=== PATIENT | female | born 1980 | race Caucasian/White ===

== ENCOUNTER 2018-02-18 09:20 | Emergency (ER) | payer BC, OTHER ==
[~2018-02-18] VITALS: Ht 165.1 cm; Wt 64.6 kg
[2018-02-18 09:23] VITALS: TEMP 36.8; Ht 165.1 cm; Wt 64.6 kg
[2018-02-18] MEDS ORDERED: KETOROLAC TROMETHAMINE 60 MG/2 ML VIAL IM STA (09:49)
[2018-02-18 10:30] VITALS: BP 96/67; PULSE 70; O2SAT 99
--- NOTE | 2018-02-18 10:39 | DIAGNOSTIC IMAGING REPORT ---
HEAD CT NONCONTRAST CT DOSE: 788.63 mGycm HISTORY: headache TECHNIQUE: Multiaxial CT images of the head were performed without the use of intravenous contrast. Automated exposure control was utilized for this study. A dose lowering technique was utilized adhering to the principles of ALARA. Comparison: Brain MRI 04/30/2014. Findings: The paranasal sinuses and mastoid air cells are clear. The calvarium and skull base are intact. The ventricles and sulci are within normal limits. There is no mass, hematoma, midline shift, or acute infarct. Impression: No acute intracranial abnormality. Electronically signed by: Riley Schumacher M.D. 02/18/2018 10:14 AM Dictated Date/Time: 02/18/2018 10:11 AM
--- NOTE | 2018-02-18 10:53 | EMERGENCY ROOM VISIT NOTE ---
History Report prepared by Sofy: Nilo Ernandez Under the Supervision of: Dr. Isauro Duval M.D. First contact with patient: 09:42 Chief Complaint: HEADACHE Stated Complaint: HEADACHE 9 DAYS History of Present Illness The patient is a 37 year old female who presents to the Emergency Room with complaints of constant headache beginning nine days ago. The patient rates her current pain as a 3/10 in severity. She localizes the pain to her temples. She describes her pain as "sharp". The patient's pain is worsened with moving her head. She has a history of migraines (for the past five years), but states that her current headache feels much more "intense". She also complains of intermittent nausea, mild cough and occasional lightheadedness. The patient was seen at urgent care for her symptoms four days ago and received IM pain medication. She was discharged and told to return for continued pain. She saw her chiropractor yesterday as well which did not improve her pain. The patient denies any fevers, chest pain, or SOB. She denies chance of . She denies any recent trauma or injury. The patient notes that her migraines are normally resolved with Excedrin Migraine, but her current headache has been unaffected. Source of History: patient Onset: Nine days ago Position: head Symptom Intensity: 3/10 Quality: sharp Timing: constant Modifying Factors (Worsening): other (moving head) Associated Symptoms: + cough (mild), + nausea (intermittent), No fevers, No chest pain, No SOB Note: Positive: occasional lightheadedness. Review of Systems See HPI for pertinent positives & negatives. A total of 10 systems reviewed and were otherwise negative. Past Medical & Surgical Medical Problems: (1) No significant medical problems Surgical Problems: (1) History of wisdom tooth extraction Old medical records were reviewed. Nurse's notes were reviewed and I agree with. Family History No pertinent family history stated. Social History Smoking Status: Former Smoker Alcohol Use: none Marital Status: single Housing Status: lives with family Occupation Status: employed Current/Historical Medications No Active Prescriptions or Reported Meds Allergies Coded Allergies: No Known Allergies (Verified , 12/17/02) Physical Exam Vital Signs Date Time Temp Pulse Resp B/P (MAP) Pulse Ox O2 Delivery O2 Flow Rate FiO2 02/18/18 10:30 70 18 96/67 99 Room Air 02/18/18 09:23 36.8 83 18 116/81 97 Room Air Physical Exam General: Non-ill appearing young female in no acute distress. HEENT: Normal cephalic atraumatic. Pupils are equal round and reactive to light. Extraocular movements are intact. Oropharynx is pink with moist mucous membranes. No swelling of the mouth lips or tongue. Neck: Supple with a midline trachea. No meningeal signs or stiffness, no JVD or bruits. No Stridor. Chest: Clear to auscultation bilaterally. No wheezes or rhonchi. No increased work of breathing. Heart: regular rate and rhythm. Abdomen: Soft nontender, nondistended without rebound guarding or rigidity. Extremities: No cyanosis clubbing or edema. No calf tenderness or assymetry Spine/Back. Non tender to palpation. No CVA tenderness Skin: Good turgor without rashes. Neurologic exam: Cranial nerves two through 12 are intact. Motor and sensation are intact and symmetrical throughout. Medical Decision & Procedures ER Provider Diagnostic Interpretation: Radiology results as stated below per my review and radiologist interpretation: HEAD CT NONCONTRAST Findings: The paranasal sinuses and mastoid air cells are clear. The calvarium and skull base are intact. The ventricles and sulci are within normal limits. There is no mass, hematoma, midline shift, or acute infarct. Impression: No acute intracranial abnormality. Electronically signed by: Riley Schumacher M.D. 02/18/2018 10:14 AM Medications Administered Medications (Trade) Dose Ordered Sig/Alphonso Route Start Time Stop Time Status Last Admin Dose Admin Ketorolac Tromethamine (Toradol Inj) 60 mg NOW STAT IM 02/18/18 09:49 02/18/18 09:50 DC 02/18/18 09:56 60 MG ED Course 0943: Past medical records reviewed. The patient was evaluated in room A4B, and a complete history and physical examination were performed. 0949: Ordered Toradol Inj 60 mg IM. 1042: Upon reevaluation, the patient is resting comfortably. We discussed her case more thoroughly. She states that she has had chronic headaches which are worse over the past year. She states that she had a spinal tap earlier this year to rule out meningitis. The patient would like to go home now. I discussed the results and treatment plan with her. She verbalized agreement of the treatment plan. The patient was discharged home. Medical Decision Differentials include, but are not limited to; migraine, intracranial process, and tension headache. This patient comes in as described above. She was placed in room A4. She has been having a headache for about the last 9 days. She has a history of migraines and has extensive workup for this. She tells me that she has had neuro imaging she also had a lumbar puncture done last year for a bad headache as well. She looks well on exam. She has no neurologic deficits. There has been no trauma. She has no fever and there is nothing to suggest meningitis or encephalitis. Her symptoms are not likely consistent with an aneurysm. I did a CAT scan of her head it was unremarkable. She had a shot of Toradol 60 mgs IM and she was feeling a lot better. I do think this is acute exacerbation of her chronic headaches/migraine. I recommend she follow-up with her neurologist or regular doctor and may need further workup or treatment from her chronic headaches. She will was happy with the plan discharged home with her boyfriend driving. She was encouraged to return if: headaches different than normal, worsening symptoms, fever chills, any new problems or concerns. Medication Reconcilliation Current Medication List: was personally reviewed by me Blood Pressure Screening Patient's blood pressure: Normal blood pressure Blood pressure disposition: Did not require urgent referral Impression Primary Impression: Headache Scribe Attestation The scribe's documentation has been prepared under my direction and personally reviewed by me in its entirety. I confirm that the note above accurately reflects all work, treatment, procedures, and medical decision making performed by me. Departure Information Dispostion Home / Self-Care Prescriptions No Active Prescriptions or Reported Meds Referrals No Doctor, Assigned (PCP) Forms HOME CARE DOCUMENTATION FORM, IMPORTANT VISIT INFORMATION Patient Instructions My [facility] [employer] Additional Instructions REst Drink plenty of fluids Use Ibuprofen 400 mg ebery 6 hours as needed Follow-up with your docotr this week for recheck Return if: worsening of saymptoms, fever, increasing pain, any new problems or cocnerns
== END 2018-02-18 10:55 | disposition home or self-care (01) ==
LOC: C.EDB 09:23 → C.EDA 10:55
DX: R51 Headache (principal); Z87.891 Personal history of nicotine dependence

== ENCOUNTER 2021-07-12 17:51 | Inpatient (IN) ==
[2021-07-12] MEDS ORDERED: dexAMETHasone**PF** 10 MG/ML VIAL IV ONE (18:31)
[2021-07-12] MEDS ORDERED: SODIUM CHLORIDE 0.9% 500 ML IV STA (18:31)
--- NOTE | 2021-07-12 18:54 | Emergency Department Note ---
History of Present Illness General Chief complaint: Shortness of Breath/Dyspnea Stated complaint: ELIZABETH CHRISTOPHER Time Seen by Provider: 07/12/21 18:26 Source: patient History of Present Illness Provider complaint: Shortness of breath Onset (ago): day(s) Location: chest Pain Consistency: + constant Quality: + other (Short of breath) Relieved By: + other (Oxygen) Associated symptoms: + chest pain (Sharp midsternal chest pain when she coughs), + cough, + fever/chills, + malaise, + nausea/vomiting and + shortness of breath This is a 40-year-old female who developed COVID-19 symptoms on June 30 presenting with worsening shortness of breath. The patient initially had a mild cough, body aches and fever. She then started to vomit and so came here on the fifth of this month. She had blood work and was sent home with [facility]. She did feel better for a day but then the day afterwards she started having significant shortness of breath. She developed chest pain as well. She describes it as sharp pain in the middle of her chest. Its worse when she coughs. She continues to cough and have generalized myalgias. She has had loss of taste and smell as well as diarrhea. She states she is no longer vomiting. She was diagnosed with COVID-19 on July 01. She denies any abdominal pain or urinary symptoms or leg swelling or pain. She has no history of pulmonary embolism. She is not using hormonal control. She was prescribed Decadron when she was here on the . She did take it this morning. Home Medications Medication Instructions Recorded Confirmed Type ascorbic acid (vitamin C) 500 mg 500 mg PO DAILY 01/17/21 07/12/21 History tablet famotidine 20 mg tablet (Pepcid) 20 mg PO HS #30 tab 01/17/21 07/12/21 Rx omeprazole 40 mg capsule,delayed 40 mg PO DAILY #30 cap 01/17/21 07/12/21 Rx release ergocalciferol (vitamin D2) 1,250 1,250 mcg PO .weekly #12 cap 01/20/21 07/12/21 Rx mcg (50,000 unit) capsule dexamethasone 6 mg tablet 6 mg PO DAILY #6 tab 07/09/21 07/12/21 Rx ondansetron 4 mg disintegrating 4 mg PO Q6H PRN #10 tab 07/09/21 07/12/21 Rx tablet Allergies Allergy/AdvReac Type Severity Reaction Status Date / Time No Known Allergies Allergy Verified 07/12/21 20:48 Past Med/Surg History Medical History Acid reflux Depression with anxiety Eczema Surgical History History of cosmetic surgery 07/2019 stomach and hips History of wisdom tooth extraction Status post tubal ligation Family History Mother Breast cancer Diabetes Grandmother (Maternal) Breast cancer Diabetes Son Crohn's disease Grandfather (Paternal) Myocardial infarction Heart disease Hypertension Grandfather (Maternal) Myocardial infarction Diabetes Grandfather (Maternal) Diabetes Other Cancer Denies family history of Ovarian cancer Prostate cancer Colorectal cancer Social History Smoking Status: Former smoker Tobacco Type: Cigarettes Age Started Using Tobacco: 15; Hx Alcohol Use: Yes Hx Substance Use: No Preferred Language: Liberian Communication Ability: Effective Visual Impairment: No Limitations Hearing Ability: Normal 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 Beliefs That Will Affect Care: None marital status: marital status details: Previous Divorce Current Living Situation: Spouse Current Living Situation Comment: Spouse, daughter, 3 step children current occupational status: employed current occupation: [employer] How many Children do You have: 2 How many Children do You have Comment: 3 step children Feels Safe at Home: Yes caffeine: Yes during the past year weight has: remained stable Dental Care, Regularly: Yes Physical Activity Frequency: 3-4 Times per Week Seatbelt Use: always Sunscreen Use: No Review of Systems See HPI for pertinent positives & negatives. and A total of 10 systems reviewed and were otherwise negative Physical Exam Vital Signs Vital Signs - 24 hr 07/12/21 18:12 07/12/21 18:42 07/12/21 18:49 Temperature 36.7 C Temperature Source Temporal Artery Scan Pulse Rate 97 H 91 H Pulse Rate [Apical] Pulse Rate [Finger] Pulse Rate from SpO2 Sensor 94 H Pulse Rhythm Regular Pulse Strength Normal Respiratory Rate 24 Respiratory Effort / Characteristics Non-Labored Spontaneous Short of Breath Respiratory Depth Normal Respiratory Pattern Regular Regular Blood Pressure 123/78 115/89 Blood Pressure Mean 93 97 Blood Pressure Position Sitting Pulse Oximetry 83 L 96 Oxygen Delivery Method Room Air Nasal Cannula Nasal Cannula Oxygen Flow Rate 3 6 Fraction of Inspired Oxygen Sepsis Recent Fever Within 48 Hours No Sepsis New/Unexplained Change in Mental Status N/A Sepsis Action Taken by Nursing No Action Required 07/12/21 19:00 07/12/21 19:29 07/12/21 19:30 Temperature Temperature Source Pulse Rate 84 85 Pulse Rate [Apical] Pulse Rate [Finger] 98 H Pulse Rate from SpO2 Sensor 84 87 Pulse Rhythm Pulse Strength Respiratory Rate Respiratory Effort / Characteristics Respiratory Depth Respiratory Pattern Blood Pressure 112/80 113/81 Blood Pressure Mean 90 91 Blood Pressure Position Pulse Oximetry 96 96 96 Oxygen Delivery Method Nasal Cannula Nasal Cannula Nasal Cannula Oxygen Flow Rate 3 6 3 Fraction of Inspired Oxygen Sepsis Recent Fever Within 48 Hours Sepsis New/Unexplained Change in Mental Status Sepsis Action Taken by Nursing 07/12/21 20:30 07/12/21 20:54 07/12/21 21:00 Temperature Temperature Source Pulse Rate 76 76 Pulse Rate [Apical] 78 Pulse Rate [Finger] Pulse Rate from SpO2 Sensor 74 76 Pulse Rhythm Pulse Strength Respiratory Rate 34 H 28 H 23 Respiratory Effort / Characteristics Spontaneous Labored Short of Breath Respiratory Depth Respiratory Pattern Blood Pressure 128/92 122/87 Blood Pressure Mean 104 98 Blood Pressure Position Pulse Oximetry 92 92 91 Oxygen Delivery Method Non-rebreather High Flow Nasal Cannula High Flow Nasal Cannula Oxygen Flow Rate 15 30 30 Fraction of Inspired Oxygen 100 100 Sepsis Recent Fever Within 48 Hours Sepsis New/Unexplained Change in Mental Status Sepsis Action Taken by Nursing Constitutional: Vital signs reviewed. Having difficulty speaking in full sentences. Hypoxemic. Eyes: Pupils are equal round reactive to light. Conjunctiva are noninjected. ENT: Pharynx is clear without erythema or exudate. Mucous membranes are moist. Neck supple without meningeal signs. Respiratory: Crackles in the lower half of both lung ervin.. Breath sounds are equal bilaterally. Cardiovascular: Regular rate and rhythm. No rubs or gallops. GI: Soft, nondistended and nontender. Bowel sounds are present. Musculoskeletal: No peripheral edema. No lower extremity tenderness. Integumentary: No cyanosis. or jaundice. Neurological: The patient is awake and alert. No focal deficits. Psychiatric: Anxious. Course Administered Medications Discontinued Medications Dexamethasone (Dexamethasone Sod Inj 4 Mg/Ml Vial) Confirm Administered Dose 8 mg .ROUTE .STK-MED ONE Stop: 07/12/21 19:15 Last Admin: 07/12/21 19:35 Dose: Not Given Documented by: [id number] Dexamethasone Sodium Phosphate (DexamethasonePf 10 Mg/Ml Vial) 6 mg IV NOW ONE Stop: 07/12/21 18:32 Last Admin: 07/12/21 19:19 Dose: 6 mg Documented by: [id number] Sodium Chloride (Nss) 500 mls @ 999 mls/hr IV .Q31M STA Stop: 07/12/21 19:01 Last Infusion: 07/12/21 20:03 Dose: 0 mls/hr Documented by: [id number] Admin: 07/12/21 19:18 Dose: 999 mls/hr Documented by: [id number] Ioversol (Optiray 320 125ml) 120 ml IV ONCE ONE Stop: 07/12/21 20:02 Last Admin: 07/12/21 20:01 Dose: 120 ml Documented by: [id number] Potassium Chloride (Potassium Chloride Crtab 20 Meq Tabcr) 40 meq PO NOW STA Stop: 07/12/21 21:24 Last Admin: 07/12/21 21:39 Dose: 40 meq Documented by: [id number] Critical Care Time Critical Care Time: Yes Total Critical Care Time: 40 I have personally spent approximately 40 minutes of critical care time in the direct management of this patient. This includes bedside care, interpretation of diagnostic studies, and testing, discussion with consultants, patient, and family members, and other required patient management activities. These minutes are in excess of all separately billable procedures. Medical Decision Making Differential Diagnosis Respiratory failure, multifocal pneumonia, hypoxia, pulmonary embolism, myocarditis, pleurisy Medical Records Attestation: I reviewed the patient's medical records. I did perform a limited focused review of portions of the patient's old chart on the electronic medical record. The patient was seen here July 09 for Covid symptoms. She had blood work which was unremarkable and an O2 sat of 91% on room air. There is no chest x-ray. Dictation is not currently available from the treating physician. Home Medications Current Medication List: was personally reviewed by me Laboratory Data Attestation: I reviewed the patient's lab results. Result diagrams: 07/12/21 18:40 07/12/21 18:40 Lab Results 07/12/21 07/12/21 07/12/21 Range/Units 18:40 18:40 18:40 WBC 13.73 H (4.8-10.8) K/uL RBC 4.01 L (4.2-5.4) M/uL Hgb 13.1 (12.0-16.0) g/dL POC Hgb (12.0-16.0) g/dl Hct 37.8 (37-47) % POC Hct (37-47) % MCV 94.3 (80-100) fL MCH 32.7 (25-34) pg MCHC 34.7 (32-36) g/dL RDW Std Deviation 44.7 (36.4-46.3) fL RDW Coeff of Davion 12.9 (11.5-14.5) % Plt Count 447 H (130-400) K/uL MPV 9.4 (7.4-10.4) fL Immature Gran % (Auto) 0.4 % Neut % (Auto) 93.0 % Lymph % (Auto) 4.4 % [place] % (Auto) 2.1 % Eos % (Auto) 0.0 % Baso % (Auto) 0.1 % Neut # (Auto) 12.77 H (1.4-6.5) K/uL Lymph # (Auto) 0.61 L (1.2-3.4) K/uL [place] # (Auto) 0.29 (0.11-0.59) K/uL Eos # (Auto) 0.00 (0-0.5) K/uL Baso # (Auto) 0.01 (0-0.2) K/uL Immature Gran # (Auto) 0.05 H (0.00-0.02) K/uL D-Dimer (0-500) ug/L FEU POC Sodium (135-144) mmol/L Sodium 138 (136-145) mmol/L POC Potassium (3.3-5.0) mmol/L Potassium 3.3 L (3.5-5.1) mmol/L POC Chloride (101-112) mmol/L Chloride 105 (98-107) mmol/L Carbon Dioxide 25 (21-32) mmol/L POC Total CO2 (24-31) mmol/L Anion Gap 8.0 (3-11) POC Anion Gap (16-25) mmol/L POC BUN (7-18) mg/dl BUN 11 (7-18) mg/dl Creatinine 0.78 (0.6-1.2) mg/dl POC Creatinine (0.6-1.3) mg/dl Est Cr Clr Drug Dosing 88.0 ml/min Est GFR ( Amer) 111.8 ml/min Est GFR (Non-Af Amer) 96.4 ml/min BUN/Creatinine Ratio 14.6 (10-20) Glucose 191 H (70-99) mg/dl POC Glucose (other) (70-99) mg/dl Calcium 8.5 (8.5-10.1) mg/dl POC Ioniz Calcium Ana (1.12-1.32) mmol/l Total Bilirubin 0.6 (0.2-1) mg/dl AST 36 (15-37) U/L ALT 44 (12-78) U/L Alkaline Phosphatase 53 (45-117) U/L Lactate Dehydrogenase 501 H (84-246) U/L Troponin I < 0.015 (0-0.045) ng/ml C-Reactive Protein 12.30 H (0-0.29) mg/dl Total Protein 7.4 (6.4-8.2) gm/dl Albumin 2.9 L (3.4-5.0) gm/dl Globulin 4.5 H (2.5-4.0) gm/dl Albumin/Globulin Ratio 0.6 L (0.9-2) Urine Color Urine Appearance (Clear) Urine pH (4.5-7.5) Ur Specific [place] (1.000-1.030) Urine Protein (Negative) Urine Glucose (UA) (Negative) Urine Ketones (Negative) Urine Blood (Negative) Urine Nitrite (Negative) Urine Bilirubin (Negative) Urine Urobilinogen (Negative) Ur Leukocyte Esterase (Negative) Urine WBC (Auto) (0-5) /hpf Urine RBC (Auto) (0-4) /hpf U Hyaline Cast (Auto) (0-5) /lpf U Epithel Cells (Auto) (0-5) /lpf Urine Bacteria (Auto) (Negative) Ur Renal Epithelial Cell Urine Yeast 07/12/21 07/12/21 07/12/21 Range/Units 18:40 18:49 19:57 WBC (4.8-10.8) K/uL RBC (4.2-5.4) M/uL Hgb (12.0-16.0) g/dL POC Hgb 13.3 (12.0-16.0) g/dl Hct (37-47) % POC Hct 39 (37-47) % MCV (80-100) fL MCH (25-34) pg MCHC (32-36) g/dL RDW Std Deviation (36.4-46.3) fL RDW Coeff of Davion (11.5-14.5) % Plt Count (130-400) K/uL MPV (7.4-10.4) fL Immature Gran % (Auto) % Neut % (Auto) % Lymph % (Auto) % [place] % (Auto) % Eos % (Auto) % Baso % (Auto) % Neut # (Auto) (1.4-6.5) K/uL Lymph # (Auto) (1.2-3.4) K/uL [place] # (Auto) (0.11-0.59) K/uL Eos # (Auto) (0-0.5) K/uL Baso # (Auto) (0-0.2) K/uL Immature Gran # (Auto) (0.00-0.02) K/uL D-Dimer 1020 H* (0-500) ug/L FEU POC Sodium 139 (135-144) mmol/L Sodium (136-145) mmol/L POC Potassium 3.4 (3.3-5.0) mmol/L Potassium (3.5-5.1) mmol/L POC Chloride 103 (101-112) mmol/L Chloride (98-107) mmol/L Carbon Dioxide (21-32) mmol/L POC Total CO2 23 L (24-31) mmol/L Anion Gap (3-11) POC Anion Gap 17.0 (16-25) mmol/L POC BUN 10 (7-18) mg/dl BUN (7-18) mg/dl Creatinine (0.6-1.2) mg/dl POC Creatinine 0.5 L (0.6-1.3) mg/dl Est Cr Clr Drug Dosing ml/min Est GFR ( Amer) ml/min Est GFR (Non-Af Amer) ml/min BUN/Creatinine Ratio (10-20) Glucose (70-99) mg/dl POC Glucose (other) 202 H (70-99) mg/dl Calcium (8.5-10.1) mg/dl POC Ioniz Calcium Ana 1.11 L (1.12-1.32) mmol/l Total Bilirubin (0.2-1) mg/dl AST (15-37) U/L ALT (12-78) U/L Alkaline Phosphatase (45-117) U/L Lactate Dehydrogenase (84-246) U/L Troponin I (0-0.045) ng/ml C-Reactive Protein (0-0.29) mg/dl Total Protein (6.4-8.2) gm/dl Albumin (3.4-5.0) gm/dl Globulin (2.5-4.0) gm/dl Albumin/Globulin Ratio (0.9-2) Urine Color Dark Yellow Urine Appearance Clear (Clear) Urine pH 7.0 (4.5-7.5) Ur Specific [place] 1.024 (1.000-1.030) Urine Protein 1+ H (Negative) Urine Glucose (UA) 2+ H (Negative) Urine Ketones Trace H (Negative) Urine Blood 3+ H (Negative) Urine Nitrite Negative (Negative) Urine Bilirubin Negative (Negative) Urine Urobilinogen Negative (Negative) Ur Leukocyte Esterase Negative (Negative) Urine WBC (Auto) 1-5 (0-5) /hpf Urine RBC (Auto) 0-4 (0-4) /hpf U Hyaline Cast (Auto) 1-5 (0-5) /lpf U Epithel Cells (Auto) >30 H (0-5) /lpf Urine Bacteria (Auto) Negative (Negative) Ur Renal Epithelial Cell Not Reportable Urine Yeast Not Reportable Imaging Data Radiologist's Impression: Chest CTA 07/12/21 18:32 CT ANGIOGRAM OF THE CHEST CLINICAL HISTORY: Dyspnea evla for pe patient is Covid positive. COMPARISON STUDY: No previous studies for comparison. TECHNIQUE: Following the IV administration of mL of Optiray, CT angiogram of the thorax was performed from the thoracic inlet to the lung bases utilizing the pulmonary embolus protocol. Images are reviewed in the axial, sagittal, and coronal planes. IV contrast was administered without complication. MIP imaging was performed. A dose lowering technique was utilized adhering to the principles of ALARA. CT DOSE: 289.87 mGy.cm FINDINGS: There is adequate opacification of the main pulmonary artery. No evidence of pulmonary embolus involving main, lobar and segmental pulmonary arteries. Main pulmonary artery is normal in caliber. No evidence of right heart strain. There is no axillary, supra clavicle or internal mammary lymphadenopathy seen. Mediastinal and hilar lymph nodes are not enlarged. Visualized portion of thyroid gland shows no evidence of focal lesions. Mild hiatal hernia is seen. Heart is normal in size without significant pericardial effusion or coronary calcifications. There was no evidence of thoracic aortic dilatation. Tracheobronchial tree is patent. Multifocal patchy areas of septal thickening associated with consolidative and groundglass opacities, seen in bilateral lungs. Mid lung region are most severe at affected. Limited evaluation of upper abdominal viscera shows no evidence of acute abnormalities. Osseous structures: Unremarkable. IMPRESSION: 1. No acute pulmonary embolus. No secondary signs of pulmonary embolus. 2. Multiple patchy infiltrates are seen within bilateral lungs which could represent multifocal pneumonia/Covid. 3. The rest of findings as above. ACT 112: Negative or not required by law. The above report was generated using voice recognition software. It may contain grammatical, syntax or spelling errors. Electronically signed by: Elizabeth Torres DO 07/12/2021 9:21 PM MDM Narrative I did evaluate the patient as noted above. The patient developed symptoms for COVID-June 30. She was seen here on the fifth and has had worsening shortness of breath since then. She has been taking dental care done p.o. at home and took it this morning. She is hypoxemic here and placed on 3 L of oxygen via nasal cannula. Her O2 saturation went up to 94%. She was not given IV Decadron here as she took 6 mg p.o. earlier today. IV access was established. I did place an order for continuous cardiac monitoring. The monitor showed normal sinus rhythm at a rate of 80 bpm. I did order and review the patient's blood work as noted in the electronic medical record. Her white blood cell count is 13.7. She is not anemic. Platelet count is 447. Electrolytes are unremarkable other than a potassium of 3.3. LDH is elevated at 501. Troponin is negative. CRP is 12.3. D-dimer is over thousand. Glucose is 191. She denies any history of diabetes but states it runs in her family. I did order a CT angiogram of the chest. I did review the images myself as well as the radiology report as described above. She does not have a pulmonary embolus but she does have significant multifocal pneumonia consistent with COVID-19. I did discuss the test results with the patient. She did require increasing amounts of oxygen. An attempt at BiPAP was made but she was unable to tolerate it. She was placed on high flow oxygen and her O2 saturation was 95%. I did discuss the case with the hospitalist and counter caser. She was admitted to the ICU. Impression & Plan Acute hypoxemic respiratory failure, COVID-19, Multifocal pneumonia, Acute hyperglycemia, Hypokalemia Discharge Plan Visit Data Chief Complaint: Shortness of Breath/Dyspnea Stated Complaint: COVID, SOB ED Provider: Ramsey Johnson Discharge Problem: Acute hypoxemic respiratory failure, COVID-19, Multifocal pneumonia, Acute hyperglycemia, Hypokalemia Patient Disposition: Admitted As Inpatient Discharge Instructions Interventions: ED Discharge Assessment Last Done: 07/12/21 21:51
[2021-07-12 18:56] LABS: Hematocrit (blood only) 37.8 % (37-47); Hemoglobin 13.1 g/dL (12.0-16.0); Mean Corpuscular Hemoglobin 32.7 pg (25-34); Mean Corpuscular Hgb Conc 34.7 g/dL (32-36); Mean Corpuscular Volume 94.3 fL (80-100); Mean Platelet Volume 9.4 fL (7.4-10.4); Platelet Count 447 K/uL (130-400); RDW Coefficient of Variation 12.9 % (11.5-14.5); RDW Standard Deviation 44.7 fL (36.4-46.3); Red Blood Count 4.01 M/uL (4.2-5.4); White Blood Count 13.73 K/uL (4.8-10.8)
[2021-07-12 19:01] LABS: iSTAT Creatinine 0.5 mg/dl (0.6-1.3); iSTAT Hemoglobin 13.3 g/dl (12.0-16.0); iSTAT Ionized Calcium 1.11 mmol/l (1.12-1.32); iSTAT Potassium 3.4 mmol/L (3.3-5.0)
[2021-07-12 19:14] LABS: Alanine Aminotransferase 44 U/L (12-78); Albumin Level 2.9 gm/dl (3.4-5.0); Aspartate Aminotransferase 36 U/L (15-37); BUN Creatinine Ratio 14.6 (10-20); Blood Urea Nitrogen 11 mg/dl (7-18); Calcium 8.5 mg/dl (8.5-10.1); Carbon Dioxide 25 mmol/L (21-32); Chloride 105 mmol/L (98-107); Est GFR (African American) 111.8 ml/min; Est GFR (Non-African American) 96.4 ml/min; Glucose 191 mg/dl (70-99); Potassium 3.3 mmol/L (3.5-5.1); Sodium 138 mmol/L (136-145)
[2021-07-12] MEDS ORDERED: DEXAMETHASONE SOD INJ 4 MG/ML VIAL ONE (19:14)
[2021-07-12 19:15] LABS: D Dimer 1020 ug/L FEU (0-500)
[2021-07-12 19:18] LABS: Albumin Globulin Ratio 0.6 (0.9-2); Alkaline Phosphatase 53 U/L (45-117); Bilirubin,Total 0.6 mg/dl (0.2-1); Globulin 4.5 gm/dl (2.5-4.0); Total Protein 7.4 gm/dl (6.4-8.2); Troponin I < 0.015 ng/ml (0-0.045)
[2021-07-12 19:19] LABS: Basophils # (auto) 0.01 K/uL (0-0.2); Basophils % (auto) 0.1 %; Immature Granulocytes # (auto) 0.05 K/uL (0.00-0.02); Immature Granulocytes % (auto) 0.4 %; Lymphocytes # (auto) 0.61 K/uL (1.2-3.4); Lymphocytes % (auto) 4.4 %; Monocytes # (auto) 0.29 K/uL (0.11-0.59); Monocytes % (auto) 2.1 %; Neutrophils # (auto) 12.77 K/uL (1.4-6.5)
[2021-07-12] MEDS ORDERED: OPTIRAY 320 125ml IV ONE (20:01)
[2021-07-12 20:14] LABS: Appearance Urine Clear (Clear); Bacteria Urine Automated Negative (Negative); Bilirubin Urine Negative (Negative); Blood Urine 3+ (Negative); Color Urine Dark Yellow; Epithelial Cell Urine Auto >30 /lpf (0-5); Glucose Urine UA 2+ (Negative); Ketones Urine Trace (Negative); Leukocyte Esterase Urine Negative (Negative); Nitrite Urine Negative (Negative); Protein Urine 1+ (Negative); RBC Urine Automated 0-4 /hpf (0-4); Specific Gravity Urine 1.024 (1.000-1.030); Urobilinogen Urine Negative (Negative)
--- NOTE | 2021-07-12 21:22 | CT Scan Report ---
CT ANGIOGRAM OF THE CHEST CLINICAL HISTORY: Dyspnea evla for pe patient is Covid positive. COMPARISON STUDY: No previous studies for comparison. TECHNIQUE: Following the IV administration of mL of Optiray, CT angiogram of the thorax was performed from the thoracic inlet to the lung bases utilizing the pulmonary embolus protocol. Images are revie wed in the axial, sagittal, and coronal planes. IV contrast was administered without complication. [place] P imaging was performed. A dose lowering technique was utilized adhering to the principles of ALARA. CT DOSE: 289.87 mGy.cm FINDINGS: There is adequate opacification of the main pulmonary artery. No evidence of pulmonary embolus involv ing main, lobar and segmental pulmonary arteries. Main pulmonary artery is normal in caliber. No evidence of right heart strain. There is no axillary, supra clavicle or internal mammary lymphadenopathy seen. Mediastinal and hilar lymph nodes are not enlarged. Visualized portion of thyroid gland shows no evidence of focal lesions. Mild hiatal hernia is seen. Heart is normal in size without significant pericardial effusion or coronary calcifications. There was no evidence of thoracic aortic dilatation. Tracheobronchial tree is patent. Multifocal patchy areas of septal thickening associated with consolidative and groundglass opacities, seen in bilateral lungs. Mid lung region are most severe at affected. Limited evaluation of upper abdominal viscera shows no evidence of acute abnormalities. Osseous structures: Unremarkable. IMPRESSION: 1. No acute pulmonary embolus. No secondary signs of pulmonary embolus. 2. Multiple patchy infiltrates are seen within bilateral lungs which could represent multifocal pneu monia/Covid. 3. The rest of findings as above. ACT 112: Negative or not required by law. The above report was generated using voice recognition software. It may contain grammatical, syntax o r spelling errors. Electronically signed by: Elizabeth Torres DO 07/12/2021 9:21 PM
[2021-07-12] MEDS ORDERED: POTASSIUM CHLORIDE CRTAB 20 MEQ TABCR PO STA (21:23)
--- NOTE | 2021-07-12 21:26 | History & Physical Report ---
Date of Service July 12, 2021 Assessment & Plan (1) COVID-19: Plan: 40yo female with Covid-19 PNA - approximately day 13 of illness. Patient hypoxic on arrival at 83%, minimal improvement with NC, Oxymask and NRB. Presently on HFNC 30, 100% FiO2 saturating 95%. She is still tachypneic, however, markedly improved from her arrival to the ER. She has been on oral Dexamethasone outpatient x 2 days. Elevated WBC with neutrophil predominance and lymphopenia LDH elevated at 501 CRP = 12.3 Ddimer = 1020 wtih no PE on CTA CTA with multilobar groundglass opacities -Admit to MICU -Check BNP, Procalcitonin, ABG -Continue supplemental O2 - presently doing well on HFNC 30 100% FiO2. She was unable to tolerated flow of 40 or BiPAP -Proning as tolerated -Dexamethasone 6mg IV daily -Tocilizumab per pharmacy - discussed with Pulmonary -Azithromycin 500mg IV daily -Lovenox 40mg BID -Mucinex, Tessalon, Tylenol and Albuterol PRN -Ativan 0.5mg IV TID PRN anxiety (2) Depression with anxiety: Plan: Chronic -Patient not currently on any medications for depression -Ativan PRN anxiety with caution (3) Acid reflux: Plan: Chronic -Continue Pepcid 20mg po qHS Plan: F/E/N - Heplock. K repleted with 40Meq PO, repeat labs in AM, Regular diet as tolerated. Patient had elevated blood sugar on arrival - no history of DM. She states that she drank a Snapple immediately prior to arrival. Also has been on steroids. No history of DM - will check A1C Ppx - Lovenox 40mg BID Code - Full Dispo - Admit to MICU History of Present Illness Chief Complaint: Covid-19 Primary Care Provider: DO Leanne Greeneeneida Reyes is a 40yo female with history of GERD and Depression presenting with Covid-19 infection. Patient's symptoms began 06/30/21 as fever, chills, body aches, headache and eye pain. Her symptoms have progressed over the last several days. She has had a cough and worsening shortness of breath. She reports becoming confused at times, feels that she is not thinking clearly. She was seen in the Er on 07/09/21 with these complaints - not getting better. She was prescribed Dexamethasone 6mg po x 6 day, Albuterol and Tylenol. Patient presents today with worsening shortness of breath. States that she becomes very short of breath with ambulating short distances. Also with some tightness in her chest - difficulty taking a deep breath. Patient initially 83% on room air upon arrival. She was placed on 6 L NC and improved slightly to 84%. She was then placed on OxyMask 8L and improved to 88% then NRB 15L and improved to 90%. Patient appeared tachypneic. Was tried on BiPAP and was unable to tolerated. She was then placed on HFNC 30 100% FiO2. She was unable to tolerate flow of 40. ER Course: Dexamethasone, NSS, KCl 40meq Allergies Allergy/AdvReac Type Severity Reaction Status Date / Time No Known Allergies Allergy Verified 07/12/21 20:48 Home Medications Medication Instructions Recorded Confirmed Type ascorbic acid (vitamin C) 500 mg 500 mg PO DAILY 01/17/21 07/12/21 History tablet famotidine 20 mg tablet (Pepcid) 20 mg PO HS #30 tab 01/17/21 07/12/21 Rx omeprazole 40 mg capsule,delayed 40 mg PO DAILY #30 cap 01/17/21 07/12/21 Rx release ergocalciferol (vitamin D2) 1,250 1,250 mcg PO .weekly #12 cap 01/20/21 07/12/21 Rx mcg (50,000 unit) capsule dexamethasone 6 mg tablet 6 mg PO DAILY #6 tab 07/09/21 07/12/21 Rx ondansetron 4 mg disintegrating 4 mg PO Q6H PRN #10 tab 07/09/21 07/12/21 Rx tablet Past Med/Surg History Medical History Acid reflux Depression with anxiety Eczema Surgical History History of cosmetic surgery 07/2019 stomach and hips History of wisdom tooth extraction Status post tubal ligation Family History Mother Breast cancer Diabetes Grandmother (Maternal) Breast cancer Diabetes Son Crohn's disease Grandfather (Paternal) Myocardial infarction Heart disease Hypertension Grandfather (Maternal) Myocardial infarction Diabetes Grandfather (Maternal) Diabetes Other Cancer Denies family history of Ovarian cancer Prostate cancer Colorectal cancer Social History Smoking Status: Former smoker Tobacco Type: Cigarettes Age Started Using Tobacco: 15; Hx Alcohol Use: Yes Hx Substance Use: No Preferred Language: Syrian Communication Ability: Effective Visual Impairment: No Limitations Hearing Ability: Normal Stunt Double Required: No Beliefs That Will Affect Care: None marital status: marital status details: Previous Divorce Current Living Situation: Spouse Current Living Situation Comment: Spouse, daughter, 3 step children current occupational status: employed current occupation: [employer] How many Children do You have: 2 How many Children do You have Comment: 3 step children Feels Safe at Home: Yes caffeine: Yes during the past year weight has: remained stable Dental Care, Regularly: Yes Physical Activity Frequency: 3-4 Times per Week Seatbelt Use: always Sunscreen Use: No Review of Systems Review of Systems: All systems reviewed & are unremarkable except as noted in HPI & below +body aches, headache, cough, SOB, chest tightness, diarrhea, poor appetite Physical Exam Physical Exam: General: patient ill in appearance, HFNC in place Skin: warm, dry, intact, no rashes or lesions HEENT: NC/AT, PERRL, EOMI, anicteric sclera, conjunctiva without injection, external ear normal to inspection and nontender, nares patent, moist mucus membranes, dentition intact, no oropharyngeal lesions, neck supple, trachea midline, no LAD, no thyromegaly, no JVD Heart: +S1/S2, regular, no m/r/g Lungs: equal air entry bilaterally, no rales/rhonchi/wheezes, visibly tachypneic with RR of 25 Abd: +BS, soft, NT/ND, no masses/organomegaly/ascites Ext: warm, 2+ pulses in UE/LE bilaterally, no clubbing/cyanosis or edema Neuro: nonfocal, patient AA&O x 4, speech intact, no facial droop, moving all extremities on command with equal strength 5/5 Results & Data Results & Data ([facility]) Vital Signs (Past 12 Hours) Vital Signs Temp Pulse Pulse Pulse Resp BP Pulse Ox 07/12/21 21:00 76 23 122/87 91 07/12/21 20:54 78 28 H 92 07/12/21 20:30 76 34 H 128/92 92 07/12/21 19:30 85 113/81 96 07/12/21 19:29 98 H 96 07/12/21 19:00 84 112/80 96 07/12/21 18:42 91 H 115/89 96 07/12/21 18:12 36.7 C 97 H 24 123/78 83 L Laboratory Results Laboratory Results WBC 13.73 K/uL (4.8-10.8) H 07/12/21 18:40 RBC 4.01 M/uL (4.2-5.4) L 07/12/21 18:40 Hgb 13.1 g/dL (12.0-16.0) 07/12/21 18:40 POC Hgb 13.3 g/dl (12.0-16.0) 07/12/21 18:49 Hct 37.8 % (37-47) 07/12/21 18:40 POC Hct 39 % (37-47) 07/12/21 18:49 MCV 94.3 fL (80-100) 07/12/21 18:40 MCH 32.7 pg (25-34) 07/12/21 18:40 MCHC 34.7 g/dL (32-36) 07/12/21 18:40 RDW Std Deviation 44.7 fL (36.4-46.3) 07/12/21 18:40 RDW Coeff of Davion 12.9 % (11.5-14.5) 07/12/21 18:40 Plt Count 447 K/uL (130-400) H 07/12/21 18:40 MPV 9.4 fL (7.4-10.4) 07/12/21 18:40 Immature Gran % (Auto) 0.4 % 07/12/21 18:40 Neut % (Auto) 93.0 % 07/12/21 18:40 Lymph % (Auto) 4.4 % 07/12/21 18:40 [place] % (Auto) 2.1 % 07/12/21 18:40 Eos % (Auto) 0.0 % 07/12/21 18:40 Baso % (Auto) 0.1 % 07/12/21 18:40 Neut # (Auto) 12.77 K/uL (1.4-6.5) H 07/12/21 18:40 Lymph # (Auto) 0.61 K/uL (1.2-3.4) L 07/12/21 18:40 [place] # (Auto) 0.29 K/uL (0.11-0.59) 07/12/21 18:40 Eos # (Auto) 0.00 K/uL (0-0.5) 07/12/21 18:40 Baso # (Auto) 0.01 K/uL (0-0.2) 07/12/21 18:40 Immature Gran # (Auto) 0.05 K/uL (0.00-0.02) H 07/12/21 18:40 D-Dimer 1020 ug/L FEU (0-500) H* 07/12/21 18:40 POC Sodium 139 mmol/L (135-144) 07/12/21 18:49 Sodium 138 mmol/L (136-145) 07/12/21 18:40 POC Potassium 3.4 mmol/L (3.3-5.0) 07/12/21 18:49 Potassium 3.3 mmol/L (3.5-5.1) L 07/12/21 18:40 POC Chloride 103 mmol/L (101-112) 07/12/21 18:49 Chloride 105 mmol/L (98-107) 07/12/21 18:40 Carbon Dioxide 25 mmol/L (21-32) 07/12/21 18:40 POC Total CO2 23 mmol/L (24-31) L 07/12/21 18:49 Anion Gap 8.0 (3-11) 07/12/21 18:40 POC Anion Gap 17.0 mmol/L (16-25) 07/12/21 18:49 POC BUN 10 mg/dl (7-18) 07/12/21 18:49 BUN 11 mg/dl (7-18) 07/12/21 18:40 Creatinine 0.78 mg/dl (0.6-1.2) 07/12/21 18:40 POC Creatinine 0.5 mg/dl (0.6-1.3) L 07/12/21 18:49 Est Cr Clr Drug Dosing 88.0 ml/min 07/12/21 18:40 Est GFR ( Amer) 111.8 ml/min 07/12/21 18:40 Est GFR (Non-Af Amer) 96.4 ml/min 07/12/21 18:40 BUN/Creatinine Ratio 14.6 (10-20) 07/12/21 18:40 Glucose 191 mg/dl (70-99) H 07/12/21 18:40 POC Glucose (other) 202 mg/dl (70-99) H 07/12/21 18:49 Calcium 8.5 mg/dl (8.5-10.1) 07/12/21 18:40 POC Ioniz Calcium Ana 1.11 mmol/l (1.12-1.32) L 07/12/21 18:49 Total Bilirubin 0.6 mg/dl (0.2-1) 07/12/21 18:40 AST 36 U/L (15-37) 07/12/21 18:40 ALT 44 U/L (12-78) 07/12/21 18:40 Alkaline Phosphatase 53 U/L (45-117) 07/12/21 18:40 Lactate Dehydrogenase 501 U/L (84-246) H 07/12/21 18:40 Troponin I < 0.015 ng/ml (0-0.045) 07/12/21 18:40 C-Reactive Protein 12.30 mg/dl (0-0.29) H 07/12/21 18:40 Total Protein 7.4 gm/dl (6.4-8.2) 07/12/21 18:40 Albumin 2.9 gm/dl (3.4-5.0) L 07/12/21 18:40 Globulin 4.5 gm/dl (2.5-4.0) H 07/12/21 18:40 Albumin/Globulin Ratio 0.6 (0.9-2) L 07/12/21 18:40 Urine Color Dark Yellow 07/12/21 19:57 Urine Appearance Clear (Clear) 07/12/21 19:57 Urine pH 7.0 (4.5-7.5) 07/12/21 19:57 Ur Specific [place] 1.024 (1.000-1.030) 07/12/21 19:57 Urine Protein 1+ (Negative) H 07/12/21 19:57 Urine Glucose (UA) 2+ (Negative) H 07/12/21 19:57 Urine Ketones Trace (Negative) H 07/12/21 19:57 Urine Blood 3+ (Negative) H 07/12/21 19:57 Urine Nitrite Negative (Negative) 07/12/21 19:57 Urine Bilirubin Negative (Negative) 07/12/21 19:57 Urine Urobilinogen Negative (Negative) 07/12/21 19:57 Ur Leukocyte Esterase Negative (Negative) 07/12/21 19:57 Urine WBC (Auto) 1-5 /hpf (0-5) 07/12/21 19:57 Urine RBC (Auto) 0-4 /hpf (0-4) 07/12/21 19:57 U Hyaline Cast (Auto) 1-5 /lpf (0-5) 07/12/21 19:57 U Epithel Cells (Auto) >30 /lpf (0-5) H 07/12/21 19:57 Urine Bacteria (Auto) Negative (Negative) 07/12/21 19:57 Ur Renal Epithelial Cell Not Reportable 07/12/21 19:57 Urine Yeast Not Reportable 07/12/21 19:57 Impressions Chest CTA 07/12/21 18:32 CT ANGIOGRAM OF THE CHEST CLINICAL HISTORY: Dyspnea evla for pe patient is Covid positive. COMPARISON STUDY: No previous studies for comparison. TECHNIQUE: Following the IV administration of mL of Optiray, CT angiogram of the thorax was performed from the thoracic inlet to the lung bases utilizing the pulmonary embolus protocol. Images are reviewed in the axial, sagittal, and coronal planes. IV contrast was administered without complication. MIP imaging was performed. A dose lowering technique was utilized adhering to the principles of ALARA. CT DOSE: 289.87 mGy.cm FINDINGS: There is adequate opacification of the main pulmonary artery. No evidence of pulmonary embolus involving main, lobar and segmental pulmonary arteries. Main pulmonary artery is normal in caliber. No evidence of right heart strain. There is no axillary, supra clavicle or internal mammary lymphadenopathy seen. Mediastinal and hilar lymph nodes are not enlarged. Visualized portion of thyroid gland shows no evidence of focal lesions. Mild hiatal hernia is seen. Heart is normal in size without significant pericardial effusion or coronary calcifications. There was no evidence of thoracic aortic dilatation. Tracheobronchial tree is patent. Multifocal patchy areas of septal thickening associated with consolidative and groundglass opacities, seen in bilateral lungs. Mid lung region are most severe at affected. Limited evaluation of upper abdominal viscera shows no evidence of acute abnormalities. Osseous structures: Unremarkable. IMPRESSION: 1. No acute pulmonary embolus. No secondary signs of pulmonary embolus. 2. Multiple patchy infiltrates are seen within bilateral lungs which could represent multifocal pneumonia/Covid. 3. The rest of findings as above. ACT 112: Negative or not required by law. The above report was generated using voice recognition software. It may contain grammatical, syntax or spelling errors. Electronically signed by: Elizabeth Torres DO 07/12/2021 9:21 PM Code Status & VTE Plan VTE Prophylaxis Plan VTE Prophylaxis will be ordered: Yes PG Care Time/CCT Total # of Minutes Spent Total Time Spent with Patient: Total time spent is greater than 50% in coordination of care (as documented) at patient's floor/unit and/or counseling patient: Coding Level of Care Code 29211 Initial Inpt Care Lvl 2 Diagnoses COVID-19 U07.1 Depression with anxiety F41.8 Acid reflux K21.9
[2021-07-12] MEDS ORDERED: LORazepam 0.5 MG TAB PO PRN (22:35)
[2021-07-12] MEDS ORDERED: BENZONATATE 100 MG CAPSULE PO PRN (22:35)
[2021-07-12] MEDS ORDERED: ACETAMINOPHEN 325 MG TAB PO PRN (22:35)
[2021-07-12] MEDS ORDERED: ALBUTEROL HFA 8 GM INHALER INH PRN (22:35)
[2021-07-12] MEDS ORDERED: ICU PROTOCOL FOR HYPERGLYCEMIA PRN (22:35)
[2021-07-12 23:00] LABS: Ferritin 985.5 ng/ml (8-388)
[2021-07-12] MEDS ORDERED: ONDANSETRON INJ 2 MG/ML 2 ML VIAL IV SCH (23:00)
--- NOTE | 2021-07-12 23:33 | Critical Care Consultation ---
Date of Consultation July 12, 2021 Assessment & Plan (1) Admitted to intensive care unit: Reason Critically Ill: 40-year-old female with acute hypoxic respiratory distress secondary to COVID-19 pneumonia requiring close monitoring given tenuous respiratory status on presentation as well as need for institution of tocilizumab therapy. NEURO - * CAM ICU: NEGATIVE CARDIAC/VASCULAR - * No history of cardiac disease. * Monitor on telemetry. RESPIRATORY - * Acute hypoxic respiratory distress secondary to COVID-19 pneumonia: * Patient received IV dexamethasone in the emergency department. Agree with pneumonia coverage in the acutely ill patient. * Currently requiring high flow nasal cannula at 30 L / 100%. Patient is anxious and is unable to tolerate increasing flow or forces. She was actually unable to tolerate BiPAP secondary to anxiety. In conversation at bedside, I was able to titrate up her flow rate to 50 L and 100%. We discussed proning therapy. She will continue to attempt to prone. Orders placed for incentive spirometry as well as flutter valve. Aim to titrate down FiO2 and flow rate as patient shows improvement. Proceed with noninvasive ventilatory techniques if her symptoms worsen. Intubate if necessary. Clinically, the patient appears exhausted, yet she still has good respiratory drive and does not appear to be overly tachypneic or wearing out at this time. This is encouraging as I am certain the patient has been ill for several days and I hope that the addition of high flow versus noninvasives allows the patient some rest to improve. * Agree with Tocilizumab therapy. * Continue dexamethasone. * Ongoing pulmonary toilet GI/NUTRITION - * Diet as tolerated. Would remain n.p.o. overnight, however, until we can assess her improvement in pulmonary status. * Prophylaxis: RENAL/LYTES - * Hypokalemia * Monitor closely, replace appropriately. - * Strict I&Os. ENDO - * No history of diabetes or thyroid disease * BSGs per unit protocol. ISS --> gtt per unit policy. HEME - * Stable H&H ID - * COVID-19 pneumonia: * Agree with initial dose of azithromycin. * Agree with checking procalcitonin to aid for possible need for ongoing coverage for superimposed infection. LINES/IV ACCESS - * PIVs x 2 DVT PROPHYLAXIS - * Lovenox * SCDs I have personally spent 35 minutes of critical care time in the direct management of this patient. This is a life/limb threatening event. This includes time spent evaluating patient, direct bedside care, chart review, placing orders, interpretation of diagnostic studies, discussion with consultants, patient, and family members, as well as other required patient management activities. This time is exclusive of all separately billable procedures, and teaching time and separate from and in addition to any other critical care service time. Thank you for allowing us to participate in the care of this patient. Please refer to my attending physician's documentation for any further recommendations. (2) Pneumonia due to COVID-19 virus: (3) Hypoxia: (4) Respiratory distress: (5) Hypokalemia: History of Present Illness Attending Physician: Margot Eric, History of Present Illness Patient is a 40-year-old female with no significant past medical history who developed concerning symptoms of COVID-19 on 06/30. On 07/01, she tested positive for COVID-19 at an urgent care clinic. Multiple family members have tested positive as well. Her symptoms worsen to include nausea and vomiting in addition to cough and fevers. She was seen at the emergency department on 07/09 for her symptoms. She was treated and assessed and had not been hypoxic at that point. She was discharged home with an inhaler as well as oral dexamethasone with instructions to return to the emergency department sooner in the event of change in worsening symptoms. She reports that over the last 3 days, her symptoms have continues to decline. Specifically, she reports worsening shortness of breath. She reports ongoing fevers as well as coughing fits. She feels as though she cannot get enough air into her lungs. She states that other relatives have improved, however her symptoms have persisted and have actually worsened. Upon assessment in the emergency department, the patient was noted to be hypoxic with pulse ox in the low 80s. Her oxygen requirement escalated quickly and eventually she was requiring high flow 30 L 100%. She did not tolerate BiPAP. She did not tolerate increasing flow rate from the high flow as well. She received dexamethasone in the emergency department. CTA of the chest demonstrated no pulmonary embolism, however concerning pattern of COVID-19 pneumonia. Hospitalist did reach out to pulmonary medicine regarding initiation of Tocilizumab therapy. Tocilizumab to be ordered and patient to be monitored in the ICU for ongoing assessment of respiratory status. Upon assessment in the ICU, the patient is awake, alert, and oriented. Clinically, the patient appears tired and admits to feeling "exhausted" however she does not appear to be in significant distress at this point. Patient is tolerating high flow at 30 L / 100%. This was slowly titrated up while we are having discussion regarding care. She is agreeable to attempting BiPAP if necessary. Patient is willing to try proning as well. She reports that since using the high flow, this is the best she has felt in the last several days. She currently denies chest pain or palpitations. She reports no dizziness or lightheadedness. She denies any nausea or vomiting this point. Allergies Allergy/AdvReac Type Severity Reaction Status Date / Time No Known Allergies Allergy Verified 07/12/21 20:48 Home Medications Medication Instructions Recorded Confirmed Type ascorbic acid (vitamin C) 500 mg 500 mg PO DAILY 01/17/21 07/12/21 History tablet famotidine 20 mg tablet (Pepcid) 20 mg PO HS #30 tab 01/17/21 07/12/21 Rx omeprazole 40 mg capsule,delayed 40 mg PO DAILY #30 cap 01/17/21 07/12/21 Rx release ergocalciferol (vitamin D2) 1,250 1,250 mcg PO .weekly #12 cap 01/20/21 07/12/21 Rx mcg (50,000 unit) capsule dexamethasone 6 mg tablet 6 mg PO DAILY #6 tab 07/09/21 07/12/21 Rx ondansetron 4 mg disintegrating 4 mg PO Q6H PRN #10 tab 07/09/21 07/12/21 Rx tablet Patient History Medical History Acid reflux Depression with anxiety Eczema Surgical History History of cosmetic surgery 07/2019 stomach and hips History of wisdom tooth extraction Status post tubal ligation Family History Mother Breast cancer Diabetes Grandmother (Maternal) Breast cancer Diabetes Son Crohn's disease Grandfather (Paternal) Myocardial infarction Heart disease Hypertension Grandfather (Maternal) Myocardial infarction Diabetes Grandfather (Maternal) Diabetes Other Cancer Denies family history of Ovarian cancer Prostate cancer Colorectal cancer Social History Smoking Status: Former smoker Tobacco Type: Cigarettes Age Started Using Tobacco: 15; Hx Alcohol Use: Yes Alcohol type: wine Hx Substance Use: No Preferred Language: Icelandic Communication Ability: Effective Visual Impairment: No Limitations Hearing Ability: Normal Case Specialist Required: No Beliefs That Will Affect Care: None marital status: marital status details: Previous Divorce Current Living Situation: Family Current Living Situation Comment: Spouse, daughter, 3 step children current occupational status: employed current occupation: [employer] How many Children do You have: 2 How many Children do You have Comment: 3 step children Feels Safe at Home: Yes caffeine: Yes during the past year weight has: remained stable Dental Care, Regularly: Yes Physical Activity Frequency: 3-4 Times per Week Seatbelt Use: always Sunscreen Use: No Assistive Devices: Denture - Lower and Oxygen - Continuous Review of Systems Review of Systems: A complete 10 point review of systems was reviewed with the patient with pertinent positives and negatives as per history of present illness. All else were negative. Physical Exam Physical Exam: VITAL SIGNS - Vital signs and nursing notes were reviewed. GENERAL - 40-year-old female appearing her stated age who is in no acute distress. Slightly tachypneic, but able to answer questions completely and appropriately. SKIN - Without rashes. HEAD - NC/AT. EYES - PERRL with EOMI bilaterally. Sclera anicteric. Palpebral conjunctiva pink and moist with no injection noted. EARS - No deformities of external structures noted on gross examination bilaterally. NOSE - Midline and without cyanosis. No epistaxis or purulent drainage noted. MOUTH/OROPHARYNX - Without perioral cyanosis. Buccal mucosa pink and moist and without leukoplakia. NECK - Neck with FROM. No nuchal rigidity. LUNGS -slightly tachypneic. Coarse breath sounds noted. CARDIAC - RRR with S1/S2. No murmur, rubs, or gallops appreciated. ABDOMEN - Abdominal contour flat without pulsations or visible masses. BS normoactive all four quadrants. No tenderness, palpable masses, hepatosplenomegaly, or ascites noted. EXTREMITIES - No clubbing or peripheral cyanosis. No pretibial edema present. +3/5 radial and dorsalis pedis pulses palpated throughout. +5/5 strength noted in UE/LE bilaterally. NEUROLOGIC - Cranial nerves II through XII grossly intact. PSYCH - A&Ox3 and cooperates fully with examiner. Pt is very pleasant and interacts well with examiner. Results & Data Results & Data ([facility]) Vital Signs (Past 12 Hours) Vital Signs Temp Pulse Pulse Pulse Resp BP BP 07/12/21 22:52 98 H 26 H 07/12/21 22:40 36.9 C 66 20 132/86 07/12/21 22:10 80 28 H 07/12/21 22:00 71 25 H 116/87 07/12/21 21:30 69 28 H 116/76 07/12/21 21:00 76 23 122/87 07/12/21 20:54 78 28 H 07/12/21 20:30 76 34 H 128/92 07/12/21 19:30 85 113/81 07/12/21 19:29 98 H 07/12/21 19:00 84 112/80 07/12/21 18:42 91 H 115/89 07/12/21 18:12 36.7 C 97 H 24 123/78 Pulse Ox 07/12/21 22:52 94 07/12/21 22:40 94 07/12/21 22:10 92 07/12/21 22:00 95 07/12/21 21:30 99 07/12/21 21:00 91 07/12/21 20:54 92 07/12/21 20:30 92 07/12/21 19:30 96 07/12/21 19:29 96 07/12/21 19:00 96 07/12/21 18:42 96 07/12/21 18:12 83 L Coding Level of Care Code Critical Care 1st 30-74 mins Diagnoses Admitted to intensive care unit Z78.9 Pneumonia due to COVID-19 virus U07.1; J12.82 Hypoxia R09.02 Respiratory distress R06.03 Hypokalemia E87.6 Time Spent (min) 35
[2021-07-13] MEDS ORDERED: TOCILIZUMAB 400 MG, TOCILIZUMAB 200 MG in 0.9 % SODIUM CHLORIDE 70 ML IV ONE (01:00)
[2021-07-13] MEDS ORDERED: ONDANSETRON INJ 2 MG/ML 2 ML VIAL IV PRN (02:03)
[2021-07-13] MEDS: ENOXAPARIN INJ 40 MG/0.4 ML SYR SQ SCH ×2 (02:09→12:22)
[2021-07-13 05:39] LABS: Basophils # (auto) 0.02 K/uL (0-0.2); Basophils % (auto) 0.2 %; Hematocrit (blood only) 35.1 % (37-47); Hemoglobin 12.1 g/dL (12.0-16.0); Immature Granulocytes # (auto) 0.06 K/uL (0.00-0.02); Immature Granulocytes % (auto) 0.5 %; Lymphocytes # (auto) 0.91 K/uL (1.2-3.4); Lymphocytes % (auto) 7.6 %; Mean Corpuscular Hemoglobin 32.4 pg (25-34); Mean Corpuscular Hgb Conc 34.5 g/dL (32-36); Mean Corpuscular Volume 93.9 fL (80-100); Mean Platelet Volume 9.5 fL (7.4-10.4); Monocytes # (auto) 0.42 K/uL (0.11-0.59); Monocytes % (auto) 3.5 %; Neutrophils # (auto) 10.61 K/uL (1.4-6.5); Neutrophils % (auto) 88.2 %; Platelet Count 418 K/uL (130-400); RDW Standard Deviation 44.3 fL (36.4-46.3); Red Blood Count 3.74 M/uL (4.2-5.4); White Blood Count 12.02 K/uL (4.8-10.8)
[2021-07-13 06:05] LABS: Albumin Level 2.6 gm/dl (3.4-5.0); BUN Creatinine Ratio 24.8 (10-20); Bilirubin Direct 0.1 mg/dl (0-0.2); Bilirubin,Total 0.6 mg/dl (0.2-1); C Reactive Protein 10.3 mg/dl (0-0.29); Calcium 8.3 mg/dl (8.5-10.1); Creatinine Clr Calc Pharmacy 129.5 ml/min; Est GFR (African American) 139.6 ml/min; Est GFR (Non-African American) 120.4 ml/min; Magnesium 2.6 mg/dl (1.8-2.4); Potassium 4.1 mmol/L (3.5-5.1)
--- NOTE | 2021-07-13 06:45 | Critical Care Progress Note ---
Date of Service July 13, 2021 Assessment & Plan (1) Pneumonia due to COVID-19 virus: Plan: Reason Critically Ill: 40-year-old female with acute hypoxic respiratory distress secondary to COVID-19 pneumonia requiring close monitoring given tenuous respiratory status on presentation as well as need for institution of tocilizumab therapy. NEURO - CAM ICU: NEGATIVE CARDIAC/VASCULAR - No history of cardiac disease. Monitor on telemetry. RESPIRATORY - Acute hypoxic respiratory distress secondary to COVID-19 pneumonia: - On admission, requiring high flow nasal cannula at 30 L / 100% --> titrated up to 50 L / 100%. Unable to tolerate BiPAP secondary to anxiety. - Currently on 40 L with FiO2 60% - Continue IS and flutter valve. - Aim to titrate down FiO2 and flow rate as patient shows improvement. - Proceed with noninvasive ventilatory techniques if her symptoms worsen. Intubate if necessary. - s/p Tocilizumab therapy 07/13. - Continue dexamethasone; day #1 on 07/09 --> continue until 07/18 - Ongoing pulmonary toilet GI/NUTRITION - Diet as tolerated. RENAL/LYTES - Hypokalemia, resolved Continue with electrolyte replacement per ICU protocol - Strict I&Os. ENDO - No history of diabetes or thyroid disease. A1c 6.0%. Will start Novolog ISS for severe stress parameters. BSGs per unit protocol. ISS --> gtt per unit policy. HEME - Stable H&H ID - COVID-19 pneumonia (see respiratory above): - Continue azithromycin - Procalcitonin negative at 0.05 LINES/IV ACCESS - PIVs x 2 DVT PROPHYLAXIS - Lovenox, SCDs (2) Hypoxia: (3) Respiratory distress: (4) Hypokalemia: Admission and Anticipated Discharge Date Admission Date: July 12, 2021 Supervising Physician Co-Signing Physician Notes Dr. Boyce was resident physician during care of patient. I separately evaluated patient for arthur portions of the history and the exam. I was present during the critical portion of medical decision making, and I discussed the case with the resident. I generally agree with the findings and plan. NovoLog sliding scale for reactive hyperglycemia A1c within normal limits. She is on 70% FiO2 still plenty of room to increase oxygen requirements feel she is stable for downgrade to Covid unit. Tubal ligation noted in surgical history will send hCG for confirmation Subjective Was self-proning overnight. She is resting comfortably. Remains on high flow at 40L, FiO2 60%. No concerns reported by nursing staff overnight. RN does note today that patient had episode of de-sat to the low 80s when repositioning in bed/getting on bed styles. Physical Exam Physical Exam: See attending attestation Results & Data Results & Data ([id number]) Vital Signs (Past 12 Hours) Vital Signs Temp Pulse Pulse Pulse Resp BP BP 07/13/21 05:50 56 L 17 92/60 L 07/13/21 04:50 36.9 C 63 18 104/71 07/13/21 04:00 62 20 07/13/21 03:50 69 18 104/72 07/13/21 02:50 56 L 25 H 105/68 07/13/21 02:00 22 07/13/21 01:50 57 L 14 104/68 07/13/21 00:50 56 L 22 97/59 L 07/13/21 00:22 07/13/21 00:20 20 07/12/21 23:50 62 23 101/71 07/12/21 22:52 98 H 26 H 07/12/21 22:40 36.9 C 66 20 132/86 07/12/21 22:35 66 07/12/21 22:10 80 28 H 07/12/21 22:00 71 25 H 116/87 07/12/21 21:30 69 28 H 116/76 07/12/21 21:00 76 23 122/87 07/12/21 20:54 78 28 H 07/12/21 20:30 76 34 H 128/92 07/12/21 19:30 85 113/81 07/12/21 19:29 98 H 07/12/21 19:00 84 112/80 Pulse Ox 07/13/21 05:50 93 07/13/21 04:50 95 07/13/21 04:00 97 07/13/21 03:50 95 07/13/21 02:50 98 07/13/21 02:00 98 07/13/21 01:50 98 07/13/21 00:50 98 07/13/21 00:22 97 07/13/21 00:20 98 07/12/21 23:50 97 07/12/21 22:52 94 07/12/21 22:40 94 07/12/21 22:35 07/12/21 22:10 92 07/12/21 22:00 95 07/12/21 21:30 99 07/12/21 21:00 91 07/12/21 20:54 92 07/12/21 20:30 92 07/12/21 19:30 96 07/12/21 19:29 96 07/12/21 19:00 96 Laboratory Results 07/13/21 07/13/21 07/12/21 Range/Units 05:08 05:08 22:55 WBC 12.02 H (4.8-10.8) K/uL RBC 3.74 L (4.2-5.4) M/uL Hgb 12.1 (12.0-16.0) g/dL POC Hgb (12.0-16.0) g/dl Hct 35.1 L (37-47) % POC Hct (37-47) % MCV 93.9 (80-100) fL MCH 32.4 (25-34) pg MCHC 34.5 (32-36) g/dL RDW Std Deviation 44.3 (36.4-46.3) fL RDW Coeff of Davion 13.0 (11.5-14.5) % Plt Count 418 H (130-400) K/uL MPV 9.5 (7.4-10.4) fL Immature Gran % (Auto) 0.5 % Neut % (Auto) 88.2 % Lymph % (Auto) 7.6 % [place] % (Auto) 3.5 % Eos % (Auto) 0.0 % Baso % (Auto) 0.2 % Neut # (Auto) 10.61 H (1.4-6.5) K/uL Lymph # (Auto) 0.91 L (1.2-3.4) K/uL [place] # (Auto) 0.42 (0.11-0.59) K/uL Eos # (Auto) 0.00 (0-0.5) K/uL Baso # (Auto) 0.02 (0-0.2) K/uL Immature Gran # (Auto) 0.06 H (0.00-0.02) K/uL D-Dimer (0-500) ug/L FEU POC Sodium (135-144) mmol/L Sodium 140 (136-145) mmol/L POC Potassium (3.3-5.0) mmol/L Potassium 4.1 D (3.5-5.1) mmol/L POC Chloride (101-112) mmol/L Chloride 110 H (98-107) mmol/L Carbon Dioxide 26 (21-32) mmol/L POC Total CO2 (24-31) mmol/L Anion Gap 4.0 (3-11) POC Anion Gap (16-25) mmol/L POC BUN (7-18) mg/dl BUN 13 (7-18) mg/dl Creatinine 0.53 L (0.6-1.2) mg/dl POC Creatinine (0.6-1.3) mg/dl Est Cr Clr Drug Dosing 129.5 ml/min Est GFR ( Amer) 139.6 ml/min Est GFR (Non-Af Amer) 120.4 ml/min BUN/Creatinine Ratio 24.8 H (10-20) Glucose 136 H (70-99) mg/dl POC Glucose 129 H (70-99) mg/dl POC Glucose (other) (70-99) mg/dl Estimat Average Glucose mg/dl Hemoglobin A1c (4.5-5.6) % Calcium 8.3 L (8.5-10.1) mg/dl POC Ioniz Calcium Ana (1.12-1.32) mmol/l Phosphorus 3.0 (2.5-4.9) mg/dl Magnesium 2.6 H (1.8-2.4) mg/dl Ferritin (8-388) ng/ml Total Bilirubin 0.6 (0.2-1) mg/dl Direct Bilirubin 0.1 (0-0.2) mg/dl AST 28 (15-37) U/L ALT 38 (12-78) U/L Alkaline Phosphatase 50 (45-117) U/L Lactate Dehydrogenase (84-246) U/L Troponin I (0-0.045) ng/ml C-Reactive Protein 10.30 H (0-0.29) mg/dl NT-Pro-B Natriuret Pep (0-450) pg/ml Total Protein 7.0 (6.4-8.2) gm/dl Albumin 2.6 L (3.4-5.0) gm/dl Globulin (2.5-4.0) gm/dl Albumin/Globulin Ratio (0.9-2) Procalcitonin (0-0.5) ng/ml Urine Color Urine Appearance (Clear) Urine pH (4.5-7.5) Ur Specific [place] (1.000-1.030) Urine Protein (Negative) Urine Glucose (UA) (Negative) Urine Ketones (Negative) Urine Blood (Negative) Urine Nitrite (Negative) Urine Bilirubin (Negative) Urine Urobilinogen (Negative) Ur Leukocyte Esterase (Negative) Urine WBC (Auto) (0-5) /hpf Urine RBC (Auto) (0-4) /hpf U Hyaline Cast (Auto) (0-5) /lpf U Epithel Cells (Auto) (0-5) /lpf Urine Bacteria (Auto) (Negative) Ur Renal Epithelial Cell Urine Yeast Nasal Screen MRSA (PCR) (Negative) 07/12/21 07/12/21 07/12/21 Range/Units 22:40 19:57 18:49 WBC (4.8-10.8) K/uL RBC (4.2-5.4) M/uL Hgb (12.0-16.0) g/dL POC Hgb 13.3 (12.0-16.0) g/dl Hct (37-47) % POC Hct 39 (37-47) % MCV (80-100) fL MCH (25-34) pg MCHC (32-36) g/dL RDW Std Deviation (36.4-46.3) fL RDW Coeff of Davion (11.5-14.5) % Plt Count (130-400) K/uL MPV (7.4-10.4) fL Immature Gran % (Auto) % Neut % (Auto) % Lymph % (Auto) % [place] % (Auto) % Eos % (Auto) % Baso % (Auto) % Neut # (Auto) (1.4-6.5) K/uL Lymph # (Auto) (1.2-3.4) K/uL [place] # (Auto) (0.11-0.59) K/uL Eos # (Auto) (0-0.5) K/uL Baso # (Auto) (0-0.2) K/uL Immature Gran # (Auto) (0.00-0.02) K/uL D-Dimer (0-500) ug/L FEU POC Sodium 139 (135-144) mmol/L Sodium (136-145) mmol/L POC Potassium 3.4 (3.3-5.0) mmol/L Potassium (3.5-5.1) mmol/L POC Chloride 103 (101-112) mmol/L Chloride (98-107) mmol/L Carbon Dioxide (21-32) mmol/L POC Total CO2 23 L (24-31) mmol/L Anion Gap (3-11) POC Anion Gap 17.0 (16-25) mmol/L POC BUN 10 (7-18) mg/dl BUN (7-18) mg/dl Creatinine (0.6-1.2) mg/dl POC Creatinine 0.5 L (0.6-1.3) mg/dl Est Cr Clr Drug Dosing ml/min Est GFR ( Amer) ml/min Est GFR (Non-Af Amer) ml/min BUN/Creatinine Ratio (10-20) Glucose (70-99) mg/dl POC Glucose (70-99) mg/dl POC Glucose (other) 202 H (70-99) mg/dl Estimat Average Glucose mg/dl Hemoglobin A1c (4.5-5.6) % Calcium (8.5-10.1) mg/dl POC Ioniz Calcium Ana 1.11 L (1.12-1.32) mmol/l Phosphorus (2.5-4.9) mg/dl Magnesium (1.8-2.4) mg/dl Ferritin (8-388) ng/ml Total Bilirubin (0.2-1) mg/dl Direct Bilirubin (0-0.2) mg/dl AST (15-37) U/L ALT (12-78) U/L Alkaline Phosphatase (45-117) U/L Lactate Dehydrogenase (84-246) U/L Troponin I (0-0.045) ng/ml C-Reactive Protein (0-0.29) mg/dl NT-Pro-B Natriuret Pep (0-450) pg/ml Total Protein (6.4-8.2) gm/dl Albumin (3.4-5.0) gm/dl Globulin (2.5-4.0) gm/dl Albumin/Globulin Ratio (0.9-2) Procalcitonin (0-0.5) ng/ml Urine Color Dark Yellow Urine Appearance Clear (Clear) Urine pH 7.0 (4.5-7.5) Ur Specific [place] 1.024 (1.000-1.030) Urine Protein 1+ H (Negative) Urine Glucose (UA) 2+ H (Negative) Urine Ketones Trace H (Negative) Urine Blood 3+ H (Negative) Urine Nitrite Negative (Negative) Urine Bilirubin Negative (Negative) Urine Urobilinogen Negative (Negative) Ur Leukocyte Esterase Negative (Negative) Urine WBC (Auto) 1-5 (0-5) /hpf Urine RBC (Auto) 0-4 (0-4) /hpf U Hyaline Cast (Auto) 1-5 (0-5) /lpf U Epithel Cells (Auto) >30 H (0-5) /lpf Urine Bacteria (Auto) Negative (Negative) Ur Renal Epithelial Cell Not Reportable Urine Yeast Not Reportable Nasal Screen MRSA (PCR) Negative (Negative) 07/12/21 07/12/21 07/12/21 Range/Units 18:40 18:40 18:40 WBC (4.8-10.8) K/uL RBC (4.2-5.4) M/uL Hgb (12.0-16.0) g/dL POC Hgb (12.0-16.0) g/dl Hct (37-47) % POC Hct (37-47) % MCV (80-100) fL MCH (25-34) pg MCHC (32-36) g/dL RDW Std Deviation (36.4-46.3) fL RDW Coeff of Davion (11.5-14.5) % Plt Count (130-400) K/uL MPV (7.4-10.4) fL Immature Gran % (Auto) % Neut % (Auto) % Lymph % (Auto) % [place] % (Auto) % Eos % (Auto) % Baso % (Auto) % Neut # (Auto) (1.4-6.5) K/uL Lymph # (Auto) (1.2-3.4) K/uL [place] # (Auto) (0.11-0.59) K/uL Eos # (Auto) (0-0.5) K/uL Baso # (Auto) (0-0.2) K/uL Immature Gran # (Auto) (0.00-0.02) K/uL D-Dimer (0-500) ug/L FEU POC Sodium (135-144) mmol/L Sodium (136-145) mmol/L POC Potassium (3.3-5.0) mmol/L Potassium (3.5-5.1) mmol/L POC Chloride (101-112) mmol/L Chloride (98-107) mmol/L Carbon Dioxide (21-32) mmol/L POC Total CO2 (24-31) mmol/L Anion Gap (3-11) POC Anion Gap (16-25) mmol/L POC BUN (7-18) mg/dl BUN (7-18) mg/dl Creatinine (0.6-1.2) mg/dl POC Creatinine (0.6-1.3) mg/dl Est Cr Clr Drug Dosing ml/min Est GFR ( Amer) ml/min Est GFR (Non-Af Amer) ml/min BUN/Creatinine Ratio (10-20) Glucose (70-99) mg/dl POC Glucose (70-99) mg/dl POC Glucose (other) (70-99) mg/dl Estimat Average Glucose 126 mg/dl Hemoglobin A1c 6.0 H (4.5-5.6) % Calcium (8.5-10.1) mg/dl POC Ioniz Calcium Ana (1.12-1.32) mmol/l Phosphorus (2.5-4.9) mg/dl Magnesium (1.8-2.4) mg/dl Ferritin 985.5 H (8-388) ng/ml Total Bilirubin (0.2-1) mg/dl Direct Bilirubin (0-0.2) mg/dl AST (15-37) U/L ALT (12-78) U/L Alkaline Phosphatase (45-117) U/L Lactate Dehydrogenase (84-246) U/L Troponin I (0-0.045) ng/ml C-Reactive Protein (0-0.29) mg/dl NT-Pro-B Natriuret Pep 562 H (0-450) pg/ml Total Protein (6.4-8.2) gm/dl Albumin (3.4-5.0) gm/dl Globulin (2.5-4.0) gm/dl Albumin/Globulin Ratio (0.9-2) Procalcitonin 0.05 (0-0.5) ng/ml Urine Color Urine Appearance (Clear) Urine pH (4.5-7.5) Ur Specific [place] (1.000-1.030) Urine Protein (Negative) Urine Glucose (UA) (Negative) Urine Ketones (Negative) Urine Blood (Negative) Urine Nitrite (Negative) Urine Bilirubin (Negative) Urine Urobilinogen (Negative) Ur Leukocyte Esterase (Negative) Urine WBC (Auto) (0-5) /hpf Urine RBC (Auto) (0-4) /hpf U Hyaline Cast (Auto) (0-5) /lpf U Epithel Cells (Auto) (0-5) /lpf Urine Bacteria (Auto) (Negative) Ur Renal Epithelial Cell Urine Yeast Nasal Screen MRSA (PCR) (Negative) 07/12/21 07/12/21 07/12/21 Range/Units 18:40 18:40 18:40 WBC 13.73 H (4.8-10.8) K/uL RBC 4.01 L (4.2-5.4) M/uL Hgb 13.1 (12.0-16.0) g/dL POC Hgb (12.0-16.0) g/dl Hct 37.8 (37-47) % POC Hct (37-47) % MCV 94.3 (80-100) fL MCH 32.7 (25-34) pg MCHC 34.7 (32-36) g/dL RDW Std Deviation 44.7 (36.4-46.3) fL RDW Coeff of Davion 12.9 (11.5-14.5) % Plt Count 447 H (130-400) K/uL MPV 9.4 (7.4-10.4) fL Immature Gran % (Auto) 0.4 % Neut % (Auto) 93.0 % Lymph % (Auto) 4.4 % [place] % (Auto) 2.1 % Eos % (Auto) 0.0 % Baso % (Auto) 0.1 % Neut # (Auto) 12.77 H (1.4-6.5) K/uL Lymph # (Auto) 0.61 L (1.2-3.4) K/uL [place] # (Auto) 0.29 (0.11-0.59) K/uL Eos # (Auto) 0.00 (0-0.5) K/uL Baso # (Auto) 0.01 (0-0.2) K/uL Immature Gran # (Auto) 0.05 H (0.00-0.02) K/uL D-Dimer 1020 H* (0-500) ug/L FEU POC Sodium (135-144) mmol/L Sodium 138 (136-145) mmol/L POC Potassium (3.3-5.0) mmol/L Potassium 3.3 L (3.5-5.1) mmol/L POC Chloride (101-112) mmol/L Chloride 105 (98-107) mmol/L Carbon Dioxide 25 (21-32) mmol/L POC Total CO2 (24-31) mmol/L Anion Gap 8.0 (3-11) POC Anion Gap (16-25) mmol/L POC BUN (7-18) mg/dl BUN 11 (7-18) mg/dl Creatinine 0.78 (0.6-1.2) mg/dl POC Creatinine (0.6-1.3) mg/dl Est Cr Clr Drug Dosing 88.0 ml/min Est GFR ( Amer) 111.8 ml/min Est GFR (Non-Af Amer) 96.4 ml/min BUN/Creatinine Ratio 14.6 (10-20) Glucose 191 H (70-99) mg/dl POC Glucose (70-99) mg/dl POC Glucose (other) (70-99) mg/dl Estimat Average Glucose mg/dl Hemoglobin A1c (4.5-5.6) % Calcium 8.5 (8.5-10.1) mg/dl POC Ioniz Calcium Ana (1.12-1.32) mmol/l Phosphorus (2.5-4.9) mg/dl Magnesium (1.8-2.4) mg/dl Ferritin (8-388) ng/ml Total Bilirubin 0.6 (0.2-1) mg/dl Direct Bilirubin (0-0.2) mg/dl AST 36 (15-37) U/L ALT 44 (12-78) U/L Alkaline Phosphatase 53 (45-117) U/L Lactate Dehydrogenase (84-246) U/L Troponin I < 0.015 (0-0.045) ng/ml C-Reactive Protein 12.30 H (0-0.29) mg/dl NT-Pro-B Natriuret Pep (0-450) pg/ml Total Protein 7.4 (6.4-8.2) gm/dl Albumin 2.9 L (3.4-5.0) gm/dl Globulin 4.5 H (2.5-4.0) gm/dl Albumin/Globulin Ratio 0.6 L (0.9-2) Procalcitonin (0-0.5) ng/ml Urine Color Urine Appearance (Clear) Urine pH (4.5-7.5) Ur Specific [place] (1.000-1.030) Urine Protein (Negative) Urine Glucose (UA) (Negative) Urine Ketones (Negative) Urine Blood (Negative) Urine Nitrite (Negative) Urine Bilirubin (Negative) Urine Urobilinogen (Negative) Ur Leukocyte Esterase (Negative) Urine WBC (Auto) (0-5) /hpf Urine RBC (Auto) (0-4) /hpf U Hyaline Cast (Auto) (0-5) /lpf U Epithel Cells (Auto) (0-5) /lpf Urine Bacteria (Auto) (Negative) Ur Renal Epithelial Cell Urine Yeast Nasal Screen MRSA (PCR) (Negative) 07/12/21 Range/Units 18:40 WBC (4.8-10.8) K/uL RBC (4.2-5.4) M/uL Hgb (12.0-16.0) g/dL POC Hgb (12.0-16.0) g/dl Hct (37-47) % POC Hct (37-47) % MCV (80-100) fL MCH (25-34) pg MCHC (32-36) g/dL RDW Std Deviation (36.4-46.3) fL RDW Coeff of [place] (11.5-14.5) % Plt Count (130-400) K/uL MPV (7.4-10.4) fL Immature Gran % (Auto) % Neut % (Auto) % Lymph % (Auto) % [place] % (Auto) % Eos % (Auto) % Baso % (Auto) % Neut # (Auto) (1.4-6.5) K/uL Lymph # (Auto) (1.2-3.4) K/uL [place] # (Auto) (0.11-0.59) K/uL Eos # (Auto) (0-0.5) K/uL Baso # (Auto) (0-0.2) K/uL Immature Gran # (Auto) (0.00-0.02) K/uL D-Dimer (0-500) ug/L FEU POC Sodium (135-144) mmol/L Sodium (136-145) mmol/L POC Potassium (3.3-5.0) mmol/L Potassium (3.5-5.1) mmol/L POC Chloride (101-112) mmol/L Chloride (98-107) mmol/L Carbon Dioxide (21-32) mmol/L POC Total CO2 (24-31) mmol/L Anion Gap (3-11) POC Anion Gap (16-25) mmol/L POC BUN (7-18) mg/dl BUN (7-18) mg/dl Creatinine (0.6-1.2) mg/dl POC Creatinine (0.6-1.3) mg/dl Est Cr Clr Drug Dosing ml/min Est GFR ( Amer) ml/min Est GFR (Non-Af Amer) ml/min BUN/Creatinine Ratio (10-20) Glucose (70-99) mg/dl POC Glucose (70-99) mg/dl POC Glucose (other) (70-99) mg/dl Estimat Average Glucose mg/dl Hemoglobin A1c (4.5-5.6) % Calcium (8.5-10.1) mg/dl POC Ioniz Calcium Ana (1.12-1.32) mmol/l Phosphorus (2.5-4.9) mg/dl Magnesium (1.8-2.4) mg/dl Ferritin (8-388) ng/ml Total Bilirubin (0.2-1) mg/dl Direct Bilirubin (0-0.2) mg/dl AST (15-37) U/L ALT (12-78) U/L Alkaline Phosphatase (45-117) U/L Lactate Dehydrogenase 501 H (84-246) U/L Troponin I (0-0.045) ng/ml C-Reactive Protein (0-0.29) mg/dl NT-Pro-B Natriuret Pep (0-450) pg/ml Total Protein (6.4-8.2) gm/dl Albumin (3.4-5.0) gm/dl Globulin (2.5-4.0) gm/dl Albumin/Globulin Ratio (0.9-2) Procalcitonin (0-0.5) ng/ml Urine Color Urine Appearance (Clear) Urine pH (4.5-7.5) Ur Specific [place] (1.000-1.030) Urine Protein (Negative) Urine Glucose (UA) (Negative) Urine Ketones (Negative) Urine Blood (Negative) Urine Nitrite (Negative) Urine Bilirubin (Negative) Urine Urobilinogen (Negative) Ur Leukocyte Esterase (Negative) Urine WBC (Auto) (0-5) /hpf Urine RBC (Auto) (0-4) /hpf U Hyaline Cast (Auto) (0-5) /lpf U Epithel Cells (Auto) (0-5) /lpf Urine Bacteria (Auto) (Negative) Ur Renal Epithelial Cell Urine Yeast Nasal Screen MRSA (PCR) (Negative) Resident Activity Tracking Resident Involvement: Resident Care Provided Care Provided: Adult Hospital Medicine
[2021-07-13 07:57] LABS: Estimated Average Glucose 126 mg/dl
[2021-07-13] MEDS: dexAMETHasone 6 MG in SYRINGE 0 ML IV SCH (09:15)
[2021-07-13] MEDS: AZITHROMYCIN 500 MG in DEXTROSE 5% 250 ML IV SCH (09:15)
--- NOTE | 2021-07-13 10:33 | Hospitalist Progress Note ---
Date of Service July 13, 2021 Assessment & Plan (1) Hypoxia: (2) COVID-19: Plan: 40yo female with Covid-19 PNA - approximately day 13 of illness. Patient hypoxic on arrival at 83%, minimal improvement with NC, Oxymask and NRB. Now on HFNC 40 L, 70-100% FiO2 saturating 89-91 %. She is still tachypneic, however, markedly improved from her arrival. She does desaturate with minimal movement Elevated WBC with neutrophil predominance and lymphopenia LDH elevated at 501 CRP = 12.3 on admission and now decreased to 10.3 Ddimer = 1020 wtih no PE on CTA proBNP mildly elevated, procalcitonin negative CTA with multilobar groundglass opacities Only risk factor for severe disease is a history of smoking She received tocilizumab on the early childhood special educator of 07/13 She has been taking dexamethasone orally as an outpatient since 07/09 -Continue HFNC and wean off as able to -Encouraged proning as much as possible -Continue dexamethasone 6mg IV daily x10-day course-last dose will be on 07/18 -Received Tocilizumab -Continue azithromycin 500mg IV daily despite procalcitonin being negative given severity of disease -DVT prophylaxis with Lovenox 40mg BID -Continue Mucinex, Tessalon, Tylenol and Albuterol but make albuterol scheduled HFA -Ativan 0.5mg p.o. TID PRN anxiety -Continue flutter valve and incentive spirometry -Follow CBC, CMP, CRP While her respiratory status is very precarious, she is stable for downgrade out of ICU to PCU, however the release coordinator is aware and prepared to intubate her if need be. For now, she is in no respiratory distress and stable on high flow nasal cannula (3) Pneumonia due to COVID-19 virus: (4) Depression with anxiety: Plan: Chronic -Patient not currently on any medications for depression -Ativan PRN anxiety with caution (5) Acid reflux: Plan: Chronic -Continue Pepcid 20mg po qHS (6) Prediabetes: Plan: With hyperglycemia here likely related to corticosteroid use Hemoglobin A1c 6.0% which is in prediabetic range NovoLog sliding scale and Accu-Cheks instituted (7) Hypokalemia: Plan: Potassium replaced on admission and now improved Follow BMP Plan: DVT Ppx - Lovenox 40mg BID Code - Full Dispo -continued stay, downgrade from ICU to PCU Admission and Anticipated Discharge Date Admission Date: July 12, 2021 Subjective Patient seen in the ICU this morning and I discussed her care with the release coordinator at the ICU morning rounds team. She is tearful and very anxious. She also is upset about recently finding out that her father was also just admitted to the Covid unit. She reports feeling much better than when she came in yesterday however. She does not feel short of breath but is on 40 L and 70% FiO2 on her high flow nasal cannula and is sitting at 89% as I am speaking to her. She coughs when she takes deep breaths. She reports she was prone all night x8 hours. She reports she has not eaten anything in about a week, but does feel hungry at this time. She denies diarrhea and has not moved her bowels in a few days but has not been eating. No nausea or vomiting. She reports she quit smoking about 2 months ago after many years of smoking. Review of Systems Review of Systems: All systems reviewed & are unremarkable except as noted in HPI & below Physical Exam Constitutional: WD/WN, vitals as above Eyes: + anicteric sclerae and EOM intact bilaterally ENMT: external ear and nose normal, oropharynx normal Neck: trachea midline, no thyromegaly Respiratory: normal respiratory effort, + cough and + tachypneic (Mild with speaking); does not use accessory muscles Auscultation: + crackles (Bilateral lower and middle lung ervin); no rhonchi and no wheezes Cardiovascular: RRR, no murmur, no edema Chest (Breasts): Chest: normal inspection of chest Gastrointestinal (Abdomen): normal bowel sounds, soft, nontender, no hepatosplenomegaly Musculoskeletal: Extremities: extremities normal to inspection; no cyanosis and no clubbing Skin: no rashes, warm and dry Neurologic: moves all extremities and awake; no focal motor deficits Psychiatric: Orientation: alert and oriented x 3 Affect: + anxious affect Lymphatic: no lymphedema Results & Data Results & Data ([facility]) Vital Signs (Past 12 Hours) Vital Signs Temp Pulse Pulse Resp BP BP Pulse Ox 07/13/21 09:50 73 32 H 112/77 92 07/13/21 08:50 55 L 35 H 113/67 93 07/13/21 08:00 66 07/13/21 07:50 60 17 105/65 95 07/13/21 07:10 59 L 20 96 07/13/21 06:50 60 28 H 107/70 94 07/13/21 05:50 56 L 17 92/60 L 93 07/13/21 04:50 36.9 C 63 18 104/71 95 07/13/21 04:00 62 20 97 07/13/21 03:50 69 18 104/72 95 07/13/21 02:50 56 L 25 H 105/68 98 07/13/21 02:00 22 98 07/13/21 01:50 57 L 14 104/68 98 07/13/21 00:50 56 L 22 97/59 L 98 07/13/21 00:22 97 07/13/21 00:20 20 98 07/12/21 23:50 62 23 101/71 97 07/12/21 22:52 98 H 26 H 94 07/12/21 22:40 36.9 C 66 20 132/86 94 07/12/21 22:35 66 Laboratory Results 07/13/21 07/13/21 07/13/21 Range/Units 16:59 10:39 05:08 WBC (4.8-10.8) K/uL RBC (4.2-5.4) M/uL Hgb (12.0-16.0) g/dL Hct (37-47) % MCV (80-100) fL MCH (25-34) pg MCHC (32-36) g/dL RDW Std Deviation (36.4-46.3) fL RDW Coeff of Davion (11.5-14.5) % Plt Count (130-400) K/uL MPV (7.4-10.4) fL Immature Gran % (Auto) % Neut % (Auto) % Lymph % (Auto) % [place] % (Auto) % Eos % (Auto) % Baso % (Auto) % Neut # (Auto) (1.4-6.5) K/uL Lymph # (Auto) (1.2-3.4) K/uL [place] # (Auto) (0.11-0.59) K/uL Eos # (Auto) (0-0.5) K/uL Baso # (Auto) (0-0.2) K/uL Immature Gran # (Auto) (0.00-0.02) K/uL Sodium 140 (136-145) mmol/L Potassium 4.1 D (3.5-5.1) mmol/L Chloride 110 H (98-107) mmol/L Carbon Dioxide 26 (21-32) mmol/L Anion Gap 4.0 (3-11) BUN 13 (7-18) mg/dl Creatinine 0.53 L (0.6-1.2) mg/dl Est Cr Clr Drug Dosing 129.5 ml/min Est GFR ( Amer) 139.6 ml/min Est GFR (Non-Af Amer) 120.4 ml/min BUN/Creatinine Ratio 24.8 H (10-20) Glucose 136 H (70-99) mg/dl POC Glucose 127 H 186 H (70-99) mg/dl Estimat Average Glucose mg/dl Hemoglobin A1c (4.5-5.6) % Calcium 8.3 L (8.5-10.1) mg/dl Phosphorus 3.0 (2.5-4.9) mg/dl Magnesium 2.6 H (1.8-2.4) mg/dl Ferritin (8-388) ng/ml Total Bilirubin 0.6 (0.2-1) mg/dl Direct Bilirubin 0.1 (0-0.2) mg/dl AST 28 (15-37) U/L ALT 38 (12-78) U/L Alkaline Phosphatase 50 (45-117) U/L Troponin I (0-0.045) ng/ml C-Reactive Protein 10.30 H (0-0.29) mg/dl NT-Pro-B Natriuret Pep (0-450) pg/ml Total Protein 7.0 (6.4-8.2) gm/dl Albumin 2.6 L (3.4-5.0) gm/dl Globulin (2.5-4.0) gm/dl Albumin/Globulin Ratio (0.9-2) Procalcitonin (0-0.5) ng/ml HCG, Quant mIU/ml Urine Color Urine Appearance (Clear) Urine pH (4.5-7.5) Ur Specific [place] (1.000-1.030) Urine Protein (Negative) Urine Glucose (UA) (Negative) Urine Ketones (Negative) Urine Blood (Negative) Urine Nitrite (Negative) Urine Bilirubin (Negative) Urine Urobilinogen (Negative) Ur Leukocyte Esterase (Negative) Urine WBC (Auto) (0-5) /hpf Urine RBC (Auto) (0-4) /hpf U Hyaline Cast (Auto) (0-5) /lpf U Epithel Cells (Auto) (0-5) /lpf Urine Bacteria (Auto) (Negative) Ur Renal Epithelial Cell Urine Yeast Nasal Screen MRSA (PCR) (Negative) 07/13/21 07/12/21 07/12/21 Range/Units 05:08 22:55 22:40 WBC 12.02 H (4.8-10.8) K/uL RBC 3.74 L (4.2-5.4) M/uL Hgb 12.1 (12.0-16.0) g/dL Hct 35.1 L (37-47) % MCV 93.9 (80-100) fL MCH 32.4 (25-34) pg MCHC 34.5 (32-36) g/dL RDW Std Deviation 44.3 (36.4-46.3) fL RDW Coeff of Davion 13.0 (11.5-14.5) % Plt Count 418 H (130-400) K/uL MPV 9.5 (7.4-10.4) fL Immature Gran % (Auto) 0.5 % Neut % (Auto) 88.2 % Lymph % (Auto) 7.6 % [place] % (Auto) 3.5 % Eos % (Auto) 0.0 % Baso % (Auto) 0.2 % Neut # (Auto) 10.61 H (1.4-6.5) K/uL Lymph # (Auto) 0.91 L (1.2-3.4) K/uL [place] # (Auto) 0.42 (0.11-0.59) K/uL Eos # (Auto) 0.00 (0-0.5) K/uL Baso # (Auto) 0.02 (0-0.2) K/uL Immature Gran # (Auto) 0.06 H (0.00-0.02) K/uL Sodium (136-145) mmol/L Potassium (3.5-5.1) mmol/L Chloride (98-107) mmol/L Carbon Dioxide (21-32) mmol/L Anion Gap (3-11) BUN (7-18) mg/dl Creatinine (0.6-1.2) mg/dl Est Cr Clr Drug Dosing ml/min Est GFR ( Amer) ml/min Est GFR (Non-Af Amer) ml/min BUN/Creatinine Ratio (10-20) Glucose (70-99) mg/dl POC Glucose 129 H (70-99) mg/dl Estimat Average Glucose mg/dl Hemoglobin A1c (4.5-5.6) % Calcium (8.5-10.1) mg/dl Phosphorus (2.5-4.9) mg/dl Magnesium (1.8-2.4) mg/dl Ferritin (8-388) ng/ml Total Bilirubin (0.2-1) mg/dl Direct Bilirubin (0-0.2) mg/dl AST (15-37) U/L ALT (12-78) U/L Alkaline Phosphatase (45-117) U/L Troponin I (0-0.045) ng/ml C-Reactive Protein (0-0.29) mg/dl NT-Pro-B Natriuret Pep (0-450) pg/ml Total Protein (6.4-8.2) gm/dl Albumin (3.4-5.0) gm/dl Globulin (2.5-4.0) gm/dl Albumin/Globulin Ratio (0.9-2) Procalcitonin (0-0.5) ng/ml HCG, Quant mIU/ml Urine Color Urine Appearance (Clear) Urine pH (4.5-7.5) Ur Specific [place] (1.000-1.030) Urine Protein (Negative) Urine Glucose (UA) (Negative) Urine Ketones (Negative) Urine Blood (Negative) Urine Nitrite (Negative) Urine Bilirubin (Negative) Urine Urobilinogen (Negative) Ur Leukocyte Esterase (Negative) Urine WBC (Auto) (0-5) /hpf Urine RBC (Auto) (0-4) /hpf U Hyaline Cast (Auto) (0-5) /lpf U Epithel Cells (Auto) (0-5) /lpf Urine Bacteria (Auto) (Negative) Ur Renal Epithelial Cell Urine Yeast Nasal Screen MRSA (PCR) Negative (Negative) 0907/12/21 07/12/21 Range/Units 22:35 19:57 18:40 WBC (4.8-10.8) K/uL RBC (4.2-5.4) M/uL Hgb (12.0-16.0) g/dL Hct (37-47) % MCV (80-100) fL MCH (25-34) pg MCHC (32-36) g/dL RDW Std Deviation (36.4-46.3) fL RDW Coeff of Davion (11.5-14.5) % Plt Count (130-400) K/uL MPV (7.4-10.4) fL Immature Gran % (Auto) % Neut % (Auto) % Lymph % (Auto) % [place] % (Auto) % Eos % (Auto) % Baso % (Auto) % Neut # (Auto) (1.4-6.5) K/uL Lymph # (Auto) (1.2-3.4) K/uL [place] # (Auto) (0.11-0.59) K/uL Eos # (Auto) (0-0.5) K/uL Baso # (Auto) (0-0.2) K/uL Immature Gran # (Auto) (0.00-0.02) K/uL Sodium (136-145) mmol/L Potassium (3.5-5.1) mmol/L Chloride (98-107) mmol/L Carbon Dioxide (21-32) mmol/L Anion Gap (3-11) BUN (7-18) mg/dl Creatinine (0.6-1.2) mg/dl Est Cr Clr Drug Dosing ml/min Est GFR ( Amer) ml/min Est GFR (Non-Af Amer) ml/min BUN/Creatinine Ratio (10-20) Glucose (70-99) mg/dl POC Glucose (70-99) mg/dl Estimat Average Glucose 126 mg/dl Hemoglobin A1c 6.0 H (4.5-5.6) % Calcium (8.5-10.1) mg/dl Phosphorus (2.5-4.9) mg/dl Magnesium (1.8-2.4) mg/dl Ferritin (8-388) ng/ml Total Bilirubin (0.2-1) mg/dl Direct Bilirubin (0-0.2) mg/dl AST (15-37) U/L ALT (12-78) U/L Alkaline Phosphatase (45-117) U/L Troponin I (0-0.045) ng/ml C-Reactive Protein (0-0.29) mg/dl NT-Pro-B Natriuret Pep (0-450) pg/ml Total Protein (6.4-8.2) gm/dl Albumin (3.4-5.0) gm/dl Globulin (2.5-4.0) gm/dl Albumin/Globulin Ratio (0.9-2) Procalcitonin (0-0.5) ng/ml HCG, Quant < 1 mIU/ml Urine Color Dark Yellow Urine Appearance Clear (Clear) Urine pH 7.0 (4.5-7.5) Ur Specific [place] 1.024 (1.000-1.030) Urine Protein 1+ H (Negative) Urine Glucose (UA) 2+ H (Negative) Urine Ketones Trace H (Negative) Urine Blood 3+ H (Negative) Urine Nitrite Negative (Negative) Urine Bilirubin Negative (Negative) Urine Urobilinogen Negative (Negative) Ur Leukocyte Esterase Negative (Negative) Urine WBC (Auto) 1-5 (0-5) /hpf Urine RBC (Auto) 0-4 (0-4) /hpf U Hyaline Cast (Auto) 1-5 (0-5) /lpf U Epithel Cells (Auto) >30 H (0-5) /lpf Urine Bacteria (Auto) Negative (Negative) Ur Renal Epithelial Cell Not Reportable Urine Yeast Not Reportable Nasal Screen MRSA (PCR) (Negative) 07/12/21 07/12/21 07/12/21 Range/Units 18:40 18:40 18:40 WBC (4.8-10.8) K/uL RBC (4.2-5.4) M/uL Hgb (12.0-16.0) g/dL Hct (37-47) % MCV (80-100) fL MCH (25-34) pg MCHC (32-36) g/dL RDW Std Deviation (36.4-46.3) fL RDW Coeff of Davion (11.5-14.5) % Plt Count (130-400) K/uL MPV (7.4-10.4) fL Immature Gran % (Auto) 0.4 % Neut % (Auto) 93.0 % Lymph % (Auto) 4.4 % [place] % (Auto) 2.1 % Eos % (Auto) 0.0 % Baso % (Auto) 0.1 % Neut # (Auto) 12.77 H (1.4-6.5) K/uL Lymph # (Auto) 0.61 L (1.2-3.4) K/uL [place] # (Auto) 0.29 (0.11-0.59) K/uL Eos # (Auto) 0.00 (0-0.5) K/uL Baso # (Auto) 0.01 (0-0.2) K/uL Immature Gran # (Auto) 0.05 H (0.00-0.02) K/uL Sodium (136-145) mmol/L Potassium (3.5-5.1) mmol/L Chloride (98-107) mmol/L Carbon Dioxide (21-32) mmol/L Anion Gap (3-11) BUN (7-18) mg/dl Creatinine (0.6-1.2) mg/dl Est Cr Clr Drug Dosing ml/min Est GFR ( Amer) ml/min Est GFR (Non-Af Amer) ml/min BUN/Creatinine Ratio (10-20) Glucose (70-99) mg/dl POC Glucose (70-99) mg/dl Estimat Average Glucose mg/dl Hemoglobin A1c (4.5-5.6) % Calcium (8.5-10.1) mg/dl Phosphorus (2.5-4.9) mg/dl Magnesium (1.8-2.4) mg/dl Ferritin 985.5 H (8-388) ng/ml Total Bilirubin (0.2-1) mg/dl Direct Bilirubin (0-0.2) mg/dl AST (15-37) U/L ALT (12-78) U/L Alkaline Phosphatase (45-117) U/L Troponin I (0-0.045) ng/ml C-Reactive Protein (0-0.29) mg/dl NT-Pro-B Natriuret Pep 562 H (0-450) pg/ml Total Protein (6.4-8.2) gm/dl Albumin (3.4-5.0) gm/dl Globulin (2.5-4.0) gm/dl Albumin/Globulin Ratio (0.9-2) Procalcitonin 0.05 (0-0.5) ng/ml HCG, Quant mIU/ml Urine Color Urine Appearance (Clear) Urine pH (4.5-7.5) Ur Specific [place] (1.000-1.030) Urine Protein (Negative) Urine Glucose (UA) (Negative) Urine Ketones (Negative) Urine Blood (Negative) Urine Nitrite (Negative) Urine Bilirubin (Negative) Urine Urobilinogen (Negative) Ur Leukocyte Esterase (Negative) Urine WBC (Auto) (0-5) /hpf Urine RBC (Auto) (0-4) /hpf U Hyaline Cast (Auto) (0-5) /lpf U Epithel Cells (Auto) (0-5) /lpf Urine Bacteria (Auto) (Negative) Ur Renal Epithelial Cell Urine Yeast Nasal Screen MRSA (PCR) (Negative) 07/12/21 Range/Units 18:40 WBC (4.8-10.8) K/uL RBC (4.2-5.4) M/uL Hgb (12.0-16.0) g/dL Hct (37-47) % MCV (80-100) fL MCH (25-34) pg MCHC (32-36) g/dL RDW Std Deviation (36.4-46.3) fL RDW Coeff of Davion (11.5-14.5) % Plt Count (130-400) K/uL MPV (7.4-10.4) fL Immature Gran % (Auto) % Neut % (Auto) % Lymph % (Auto) % [place] % (Auto) % Eos % (Auto) % Baso % (Auto) % Neut # (Auto) (1.4-6.5) K/uL Lymph # (Auto) (1.2-3.4) K/uL [place] # (Auto) (0.11-0.59) K/uL Eos # (Auto) (0-0.5) K/uL Baso # (Auto) (0-0.2) K/uL Immature Gran # (Auto) (0.00-0.02) K/uL Sodium (136-145) mmol/L Potassium (3.5-5.1) mmol/L Chloride (98-107) mmol/L Carbon Dioxide (21-32) mmol/L Anion Gap (3-11) BUN (7-18) mg/dl Creatinine (0.6-1.2) mg/dl Est Cr Clr Drug Dosing ml/min Est GFR ( Amer) ml/min Est GFR (Non-Af Amer) ml/min BUN/Creatinine Ratio (10-20) Glucose (70-99) mg/dl POC Glucose (70-99) mg/dl Estimat Average Glucose mg/dl Hemoglobin A1c (4.5-5.6) % Calcium (8.5-10.1) mg/dl Phosphorus (2.5-4.9) mg/dl Magnesium (1.8-2.4) mg/dl Ferritin (8-388) ng/ml Total Bilirubin 0.6 (0.2-1) mg/dl Direct Bilirubin (0-0.2) mg/dl AST (15-37) U/L ALT (12-78) U/L Alkaline Phosphatase 53 (45-117) U/L Troponin I < 0.015 (0-0.045) ng/ml C-Reactive Protein 12.30 H (0-0.29) mg/dl NT-Pro-B Natriuret Pep (0-450) pg/ml Total Protein 7.4 (6.4-8.2) gm/dl Albumin (3.4-5.0) gm/dl Globulin 4.5 H (2.5-4.0) gm/dl Albumin/Globulin Ratio 0.6 L (0.9-2) Procalcitonin (0-0.5) ng/ml HCG, Quant mIU/ml Urine Color Urine Appearance (Clear) Urine pH (4.5-7.5) Ur Specific [place] (1.000-1.030) Urine Protein (Negative) Urine Glucose (UA) (Negative) Urine Ketones (Negative) Urine Blood (Negative) Urine Nitrite (Negative) Urine Bilirubin (Negative) Urine Urobilinogen (Negative) Ur Leukocyte Esterase (Negative) Urine WBC (Auto) (0-5) /hpf Urine RBC (Auto) (0-4) /hpf U Hyaline Cast (Auto) (0-5) /lpf U Epithel Cells (Auto) (0-5) /lpf Urine Bacteria (Auto) (Negative) Ur Renal Epithelial Cell Urine Yeast Nasal Screen MRSA (PCR) (Negative) PG Care Time/CCT Total # of Minutes Spent Total Time Spent with Patient: Total time spent is greater than 50% in coordination of care (as documented) at patient's floor/unit and/or counseling patient: Coding Level of Care Code 05711 Subseq Hosp Care Lvl 3 Diagnoses COVID-19 U07.1 Depression with anxiety F41.8 Acid reflux K21.9 Prediabetes R73.03 Hypokalemia E87.6 Pneumonia due to COVID-19 virus U07.1; J12.82 Hypoxia R09.02
[2021-07-13] MEDS: INSULIN ASPART 100 UNITS/ML 3 ML PEN SC SCH ×3 (12:24→20:33)
[2021-07-13] MEDS ORDERED: OXYMETAZOLINE 0.05% 30 ML BTL PRN (16:54)
--- NOTE | 2021-07-13 18:22 | Electrocardiogram Report ---
Test Reason : Blood Pressure : / mmHG Vent. Rate : 091 BPM Atrial Rate : 091 BPM P-R Int : 114 ms QRS Dur : 076 ms QT Int : 382 ms P-R-T Axes : 041 020 013 degrees QTc Int : 469 ms Normal sinus rhythm Possible Left atrial enlargement Nonspecific ST abnormality Abnormal ECG When compared with ECG of 31-JUL-2019 20:01, No significant change was found Confirmed by Fan Grimaldo ([id number]) on 07/13/2021 6:22:25 PM Referred By: REFERRED SELF Confirmed By:Helder Grimaldo
[2021-07-13 19:50] LABS: Pregnancy Test, Urine Negative (Negative)
[2021-07-13] MEDS: ALBUTEROL HFA 8 GM INHALER INH SCH (20:02)
[2021-07-13] MEDS: FAMOTIDINE 20 MG TAB PO SCH (22:00)
[2021-07-14] MEDS: ALBUTEROL HFA 8 GM INHALER INH SCH ×4 (00:14→19:07)
[2021-07-14] MEDS: ENOXAPARIN INJ 40 MG/0.4 ML SYR SQ SCH ×3 (04:04→22:32)
[2021-07-14 06:46] LABS: Basophils # (auto) 0.01 K/uL (0-0.2); Basophils % (auto) 0.1 %; Hematocrit (blood only) 36.2 % (37-47); Hemoglobin 12.4 g/dL (12.0-16.0); Immature Granulocytes # (auto) 0.05 K/uL (0.00-0.02); Immature Granulocytes % (auto) 0.5 %; Lymphocytes # (auto) 1.23 K/uL (1.2-3.4); Lymphocytes % (auto) 12.5 %; Mean Corpuscular Hemoglobin 32.5 pg (25-34); Mean Corpuscular Hgb Conc 34.3 g/dL (32-36); Mean Corpuscular Volume 94.8 fL (80-100); Mean Platelet Volume 9.5 fL (7.4-10.4); Monocytes # (auto) 0.66 K/uL (0.11-0.59); Monocytes % (auto) 6.7 %; Neutrophils % (auto) 80.2 %; Platelet Count 550 K/uL (130-400); RDW Coefficient of Variation 12.5 % (11.5-14.5); RDW Standard Deviation 43.6 fL (36.4-46.3); Red Blood Count 3.82 M/uL (4.2-5.4); White Blood Count 9.85 K/uL (4.8-10.8)
[2021-07-14 07:20] LABS: Albumin Level 2.6 gm/dl (3.4-5.0); BUN Creatinine Ratio 28.6 (10-20); C Reactive Protein 4.87 mg/dl (0-0.29); Calcium 8.7 mg/dl (8.5-10.1); Creatinine Clr Calc Pharmacy 127.1 ml/min; Est GFR (African American) 138.7 ml/min; Est GFR (Non-African American) 119.7 ml/min; Magnesium 2.6 mg/dl (1.8-2.4); Potassium 3.9 mmol/L (3.5-5.1)
[2021-07-14 07:24] LABS: Bilirubin Direct 0.1 mg/dl (0-0.2); Bilirubin,Total 0.6 mg/dl (0.2-1); Phosphorus 3.2 mg/dl (2.5-4.9); Total Protein 6.7 gm/dl (6.4-8.2)
[2021-07-14] MEDS: INSULIN ASPART 100 UNITS/ML 3 ML PEN SC SCH ×4 (09:10→21:54)
[2021-07-14] MEDS: dexAMETHasone 6 MG in SYRINGE 0 ML IV SCH (09:10)
[2021-07-14] MEDS: AZITHROMYCIN 500 MG in DEXTROSE 5% 250 ML IV SCH (09:16)
--- NOTE | 2021-07-14 17:37 | Hospitalist Progress Note ---
Date of Service July 14, 2021 Assessment & Plan (1) COVID-19: Plan: 40yo female with Covid-19 PNA - approximately day 13 of illness on the day of admission. Patient hypoxic on arrival at 83%, minimal improvement with NC, Oxymask and NRB. Then was placed on HFNC 40 L, 70-100% FiO2 saturating 89-91 %. She has since been weaned down to 40 L and 60% FiO2 and is slightly improved on 07/14 No further tachypnea today but is generally very weak and she does desaturate with minimal movement Received tocilizumab on 07/13 Elevated WBC with neutrophil predominance and lymphopenia LDH elevated at 501 CRP = 12.3 on admission and now decreased further to 4.8 today Ddimer = 1020 wtih no PE on CTA proBNP mildly elevated, procalcitonin negative CTA with multilobar groundglass opacities Only risk factor for severe disease is a history of smoking She has been taking dexamethasone orally as an outpatient since 07/09 -Continue HFNC and wean off as able to -Encouraged proning as much as possible -Continue dexamethasone 6mg IV daily x10-day course-last dose will be on 07/18 -Continue azithromycin 500mg IV daily despite procalcitonin being negative given severity of disease -DVT prophylaxis with Lovenox 40mg BID -Continue Mucinex, Tessalon, Tylenol and Albuterol scheduled HFA -Afrin nasal spray as needed for nasal congestion to assist with nasal cannula supplemental O2 -Ativan 0.5mg p.o. TID PRN anxiety -Continue flutter valve and incentive spirometry -Follow CBC, CMP, CRP (2) Hypoxia: Plan: Acute respiratory failure with hypoxia secondary to Covid-19 pneumonia as above (3) Pneumonia due to COVID-19 virus: Plan: As above Follow chest x-ray in the morning (4) Depression with anxiety: Plan: Chronic -Patient not currently on any medications for depression -Ativan PRN anxiety with caution (5) Acid reflux: Plan: Chronic -Continue Pepcid 20mg po qHS (6) Prediabetes: Plan: With hyperglycemia here likely related to corticosteroid use Hemoglobin A1c 6.0% which is in prediabetic range NovoLog sliding scale and Accu-Cheks instituted (7) Hypokalemia: Plan: Potassium replaced on admission and now improved Follow BMP (8) Thrombocytosis: Plan: Platelets up to 550 today This is almost certainly a reactive thrombocytosis to the viral infection Follow CBC Plan: DVT Ppx - Lovenox 40mg BID Code - Full Dispo -continued stay, remain in PCU on Covid sam Admission and Anticipated Discharge Date Admission Date: July 12, 2021 Subjective Patient feeling very tired. She reports she is eating the most she has in over a week. She is very weak all over. Remains on high flow nasal cannula but has been weaned down to 40 L and 60% FiO2. Her pulse ox remained at 86 to 89% while I talked to her. She denies chest pain. She has some cough. Denies abdominal pains or diarrhea. Telemetry with normal sinus rhythm with rates in the 40s to 60s Review of Systems Review of Systems: All systems reviewed & are unremarkable except as noted in HPI & below Physical Exam Constitutional: WD/WN, vitals as above Eyes: + anicteric sclerae and EOM intact bilaterally Neck: trachea midline, no thyromegaly Respiratory: normal respiratory effort; does not use accessory muscles Auscultation: + crackles (Bilateral lower and middle lung ervin); no rhonchi and no wheezes Cardiovascular: RRR, no murmur, no edema Chest (Breasts): Chest: normal inspection of chest Gastrointestinal (Abdomen): normal bowel sounds, soft, nontender, no hepatosplenomegaly Musculoskeletal: Extremities: extremities normal to inspection; no cyanosis and no clubbing Skin: no rashes, warm and dry Neurologic: moves all extremities and awake; no focal motor deficits Psychiatric: Orientation: alert and oriented x 3 Affect: + anxious affect Lymphatic: no lymphedema Results & Data Results & Data ([facility]) Vital Signs (Past 12 Hours) Vital Signs Temp Pulse Pulse Pulse Resp BP Pulse Ox 07/14/21 16:00 86 07/14/21 15:06 36.7 C 66 20 111/80 93 07/14/21 13:12 74 18 92 07/14/21 10:55 72 18 90 07/14/21 10:39 36.9 C 90 19 100/75 90 07/14/21 08:00 58 L 07/14/21 07:30 36.7 C 68 20 113/78 92 07/14/21 07:15 86 18 91 Laboratory Results 07/14/21 07/14/21 07/14/21 Range/Units 20:13 16:55 11:42 WBC (4.8-10.8) K/uL RBC (4.2-5.4) M/uL Hgb (12.0-16.0) g/dL Hct (37-47) % MCV (80-100) fL MCH (25-34) pg MCHC (32-36) g/dL RDW Std Deviation (36.4-46.3) fL RDW Coeff of Davion (11.5-14.5) % Plt Count (130-400) K/uL MPV (7.4-10.4) fL Immature Gran % (Auto) % Neut % (Auto) % Lymph % (Auto) % [place] % (Auto) % Eos % (Auto) % Baso % (Auto) % Neut # (Auto) (1.4-6.5) K/uL Lymph # (Auto) (1.2-3.4) K/uL [place] # (Auto) (0.11-0.59) K/uL Eos # (Auto) (0-0.5) K/uL Baso # (Auto) (0-0.2) K/uL Immature Gran # (Auto) (0.00-0.02) K/uL Sodium (136-145) mmol/L Potassium (3.5-5.1) mmol/L Chloride (98-107) mmol/L Carbon Dioxide (21-32) mmol/L Anion Gap (3-11) BUN (7-18) mg/dl Creatinine (0.6-1.2) mg/dl Est Cr Clr Drug Dosing ml/min Est GFR ( Amer) ml/min Est GFR (Non-Af Amer) ml/min BUN/Creatinine Ratio (10-20) Glucose (70-99) mg/dl POC Glucose 158 H 133 H 127 H (70-99) mg/dl Calcium (8.5-10.1) mg/dl Phosphorus (2.5-4.9) mg/dl Magnesium (1.8-2.4) mg/dl Total Bilirubin (0.2-1) mg/dl Direct Bilirubin (0-0.2) mg/dl AST (15-37) U/L ALT (12-78) U/L Alkaline Phosphatase (45-117) U/L C-Reactive Protein (0-0.29) mg/dl Total Protein (6.4-8.2) gm/dl Albumin (3.4-5.0) gm/dl 07/14/21 07/14/21 07/14/21 Range/Units 07:28 05:38 05:38 WBC 9.85 (4.8-10.8) K/uL RBC 3.82 L (4.2-5.4) M/uL Hgb 12.4 (12.0-16.0) g/dL Hct 36.2 L (37-47) % MCV 94.8 (80-100) fL MCH 32.5 (25-34) pg MCHC 34.3 (32-36) g/dL RDW Std Deviation 43.6 (36.4-46.3) fL RDW Coeff of Davion 12.5 (11.5-14.5) % Plt Count 550 H (130-400) K/uL MPV 9.5 (7.4-10.4) fL Immature Gran % (Auto) 0.5 % Neut % (Auto) 80.2 % Lymph % (Auto) 12.5 % Gage % (Auto) 6.7 % Eos % (Auto) 0.0 % Baso % (Auto) 0.1 % Neut # (Auto) 7.90 H (1.4-6.5) K/uL Lymph # (Auto) 1.23 (1.2-3.4) K/uL Gage # (Auto) 0.66 H (0.11-0.59) K/uL Eos # (Auto) 0.00 (0-0.5) K/uL Baso # (Auto) 0.01 (0-0.2) K/uL Immature Gran # (Auto) 0.05 H (0.00-0.02) K/uL Sodium 137 (136-145) mmol/L Potassium 3.9 (3.5-5.1) mmol/L Chloride 108 H (98-107) mmol/L Carbon Dioxide 25 (21-32) mmol/L Anion Gap 4.0 (3-11) BUN 15 (7-18) mg/dl Creatinine 0.54 L (0.6-1.2) mg/dl Est Cr Clr Drug Dosing 127.1 ml/min Est GFR ( Amer) 138.7 ml/min Est GFR (Non-Af Amer) 119.7 ml/min BUN/Creatinine Ratio 28.6 H (10-20) Glucose 117 H (70-99) mg/dl POC Glucose 105 H (70-99) mg/dl Calcium 8.7 (8.5-10.1) mg/dl Phosphorus 3.2 (2.5-4.9) mg/dl Magnesium 2.6 H (1.8-2.4) mg/dl Total Bilirubin 0.6 (0.2-1) mg/dl Direct Bilirubin 0.1 (0-0.2) mg/dl AST 25 (15-37) U/L ALT 46 (12-78) U/L Alkaline Phosphatase 50 (45-117) U/L C-Reactive Protein 4.87 H (0-0.29) mg/dl Total Protein 6.7 (6.4-8.2) gm/dl Albumin 2.6 L (3.4-5.0) gm/dl PG Care Time/CCT Total # of Minutes Spent Total Time Spent with Patient: Total time spent is greater than 50% in coordination of care (as documented) at patient's floor/unit and/or counseling patient: Coding Level of Care Code 84376 Subseq Hosp Care Lvl 3 Diagnoses Hypoxia R09.02 COVID-19 U07.1 Pneumonia due to COVID-19 virus U07.1; J12.82 Depression with anxiety F41.8 Acid reflux K21.9 Prediabetes R73.03 Hypokalemia E87.6 Thrombocytosis D47.3
[2021-07-14] MEDS: FAMOTIDINE 20 MG TAB PO SCH (20:57)
[2021-07-15] MEDS: ALBUTEROL HFA 8 GM INHALER INH SCH ×4 (00:43→20:07)
[2021-07-15 06:45] LABS: Basophils # (auto) 0.01 K/uL (0-0.2); Basophils % (auto) 0.1 %; Eosinophils # (auto) 0.01 K/uL (0-0.5); Eosinophils % (auto) 0.1 %; Hematocrit (blood only) 35.2 % (37-47); Hemoglobin 12.3 g/dL (12.0-16.0); Immature Granulocytes # (auto) 0.08 K/uL (0.00-0.02); Immature Granulocytes % (auto) 0.8 %; Lymphocytes # (auto) 1.71 K/uL (1.2-3.4); Lymphocytes % (auto) 17.5 %; Mean Corpuscular Hemoglobin 32.3 pg (25-34); Mean Corpuscular Hgb Conc 34.9 g/dL (32-36); Mean Corpuscular Volume 92.4 fL (80-100); Mean Platelet Volume 9.1 fL (7.4-10.4); Monocytes # (auto) 0.93 K/uL (0.11-0.59); Monocytes % (auto) 9.5 %; Neutrophils # (auto) 7.01 K/uL (1.4-6.5); Platelet Count 587 K/uL (130-400); RDW Coefficient of Variation 12.4 % (11.5-14.5); Red Blood Count 3.81 M/uL (4.2-5.4); White Blood Count 9.75 K/uL (4.8-10.8)
[2021-07-15 07:26] LABS: Albumin Level 2.6 gm/dl (3.4-5.0); Aspartate Aminotransferase 16 U/L (15-37); BUN Creatinine Ratio 27.6 (10-20); Blood Urea Nitrogen 14 mg/dl (7-18); C Reactive Protein 2.03 mg/dl (0-0.29); Calcium 8.6 mg/dl (8.5-10.1); Carbon Dioxide 25 mmol/L (21-32); Chloride 108 mmol/L (98-107); Est GFR (African American) 140.5 ml/min; Est GFR (Non-African American) 121.2 ml/min; Glucose 95 mg/dl (70-99); Magnesium 2.4 mg/dl (1.8-2.4); Potassium 3.8 mmol/L (3.5-5.1); Sodium 139 mmol/L (136-145)
[2021-07-15 07:30] LABS: Alanine Aminotransferase 40 U/L (12-78); Alkaline Phosphatase 48 U/L (45-117); Bilirubin Direct < 0.1 mg/dl (0-0.2); Bilirubin,Total 0.5 mg/dl (0.2-1); Phosphorus 2.9 mg/dl (2.5-4.9); Total Protein 6.5 gm/dl (6.4-8.2)
[2021-07-15] MEDS: dexAMETHasone 6 MG in SYRINGE 0 ML IV SCH (08:49)
[2021-07-15] MEDS: AZITHROMYCIN 500 MG in DEXTROSE 5% 250 ML IV SCH (08:49)
[2021-07-15] MEDS: INSULIN ASPART 100 UNITS/ML 3 ML PEN SC SCH ×4 (08:52→20:52)
--- NOTE | 2021-07-15 09:03 | XRay Report ---
XR chest 1V portable HISTORY: 40 years-old Female Follow-up pneumonia, Covid follow-up study in a patient with known pneu monia COMPARISON: CTA chest 07/12/2021 TECHNIQUE: Portable AP view of the chest FINDINGS: The spinal and hilar silhouettes are unchanged. Persistent extensive mid and lower lung zone airspace opacities appear unchanged. No pneumothorax or large pleural effusion. The bones appear intact. IMPRESSION: Unchanged extensive bilateral airspace opacities compatible with multifocal pneumonia. ACT 112: Negative or not required by law. The above report was generated using voice recognition software. It may contain grammatical, syntax o r spelling errors. Electronically signed by: Jared Harding M.D. 07/15/2021 9:02 AM
[2021-07-15] MEDS: ENOXAPARIN INJ 40 MG/0.4 ML SYR SQ SCH ×2 (11:16→22:43)
--- NOTE | 2021-07-15 12:00 | Hospitalist Progress Note ---
Date of Service July 15, 2021 Assessment & Plan (1) COVID-19: Plan: 40yo female with Covid-19 PNA - approximately day 13 of illness on the day of admission. Patient hypoxic on arrival at 83%, minimal improvement with NC, Oxymask and NRB. Then was placed on HFNC 40 L, 70-100% FiO2 saturating 89-91 %. She has since been weaned down to 40 L and 60% FiO2 since 07/14 and remains at that level of support No further tachypnea today but is generally very weak and she does desaturate with minimal movement Received tocilizumab on 07/13 Elevated WBC with neutrophil predominance and lymphopenia LDH elevated at 501 CRP = 12.3 on admission and now decreased further to 2.0 today Ddimer = 1020 with no PE on CTA proBNP mildly elevated, procalcitonin negative CTA with multilobar groundglass opacities Having a lot of issues with weakness, fatigue, poor motivation to use flutter valve. Also feeling sad and isolated from family Only risk factor for severe disease is a history of smoking She has been taking dexamethasone orally as an outpatient since 07/09 -Continue HFNC and wean off as able to -Encouraged proning as much as possible, gave encouragement to use flutter -add on chest PT -give one dose of IV lasix 20mg today to keep in slightly neg to even fluid ba cesar -Continue dexamethasone 6mg IV daily x10-day course-last dose will be on 07/18 -Continue azithromycin but decrease to 250mg po daily despite procalcitonin being negative given severity of disease -DVT prophylaxis with Lovenox 40mg BID -Continue Mucinex, Tessalon, Tylenol and Albuterol scheduled HFA -Afrin nasal spray as needed for nasal congestion to assist with nasal cannula supplemental O2 -Continue flutter valve and incentive spirometry -Follow CBC, CMP, CRP (2) Hypoxia: Plan: Acute respiratory failure with hypoxia secondary to Covid-19 pneumonia as above (3) Pneumonia due to COVID-19 virus: Plan: As above CXR 07/15 still with extensive bilat infiltrates unchanged from previous (4) Depression with anxiety: Plan: Chronic -Patient not currently on any medications for depression -dc ativan as already very lethargic, don't want to suppress drive to breathe with tenuous PULM status (5) Acid reflux: Plan: Chronic -Continue Pepcid 20mg po qHS (6) Prediabetes: Plan: With hyperglycemia here likely related to corticosteroid use Hemoglobin A1c 6.0% which is in prediabetic range NovoLog sliding scale and Accu-Cheks instituted (7) Hypokalemia: Plan: Potassium replaced on admission and now improved Follow BMP (8) Thrombocytosis: Plan: Platelets up to 550s This is almost certainly a reactive thrombocytosis to the viral infection Follow CBC Plan: DVT Ppx - Lovenox 40mg BID Code - Full Dispo -continued stay, remain in PCU on Covid sam Discussed her care with on phone again today Admission and Anticipated Discharge Date Admission Date: July 12, 2021 Subjective Feeling very tired, weak today, does not want to do flutter valve. Is also feeling sad and missing her family. Is eating and drinking. Keith placed today as she was too weak to get to toilet and has desaturations with using the bedpan. Tele with SB, NSR Review of Systems Review of Systems: All systems reviewed & are unremarkable except as noted in HPI & below Physical Exam Constitutional: WD/WN, vitals as above Eyes: + anicteric sclerae Neck: trachea midline, no thyromegaly Respiratory: + abnormal respiratory effort (poor inspiratory effort) and does not use accessory muscles Auscultation: + crackles (Bilateral lower and middle lung ervin); no rhonchi and no wheezes Cardiovascular: RRR, no murmur, no edema Chest (Breasts): Chest: normal inspection of chest Gastrointestinal (Abdomen): normal bowel sounds, soft, nontender, no hepatosplenomegaly Musculoskeletal: Extremities: extremities normal to inspection; no cyanosis and no clubbing Skin: no rashes, warm and dry Neurologic: moves all extremities and awake; no focal motor deficits Psychiatric: Orientation: alert and oriented x 3 Affect: + depressed affect Lymphatic: no lymphedema Results & Data Results & Data ([facility]) Vital Signs (Past 12 Hours) Vital Signs Temp Pulse Pulse Pulse Resp BP Pulse Ox 07/15/21 11:48 70 20 88 L 07/15/21 10:56 36.7 C 77 19 100/72 93 07/15/21 08:00 56 L 07/15/21 07:57 36.4 C L 68 20 109/72 88 L 09/11/21 07:41 70 24 94 07/15/21 07:40 70 24 95 07/15/21 06:01 95 07/15/21 05:12 88 L 07/15/21 04:18 68 20 93 07/15/21 03:00 49 L 21 109/65 93 Laboratory Results 07/15/21 07/15/21 07/15/21 Range/Units 11:50 07:54 06:08 WBC 9.75 (4.8-10.8) K/uL RBC 3.81 L (4.2-5.4) M/uL Hgb 12.3 (12.0-16.0) g/dL Hct 35.2 L (37-47) % MCV 92.4 (80-100) fL MCH 32.3 (25-34) pg MCHC 34.9 (32-36) g/dL RDW Std Deviation 42.0 (36.4-46.3) fL RDW Coeff of Davion 12.4 (11.5-14.5) % Plt Count 587 H (130-400) K/uL MPV 9.1 (7.4-10.4) fL Immature Gran % (Auto) 0.8 % Neut % (Auto) 72.0 % Lymph % (Auto) 17.5 % Roane % (Auto) 9.5 % Eos % (Auto) 0.1 % Baso % (Auto) 0.1 % Neut # (Auto) 7.01 H (1.4-6.5) K/uL Lymph # (Auto) 1.71 (1.2-3.4) K/uL Roane # (Auto) 0.93 H (0.11-0.59) K/uL Eos # (Auto) 0.01 (0-0.5) K/uL Baso # (Auto) 0.01 (0-0.2) K/uL Immature Gran # (Auto) 0.08 H (0.00-0.02) K/uL Sodium (136-145) mmol/L Potassium (3.5-5.1) mmol/L Chloride (98-107) mmol/L Carbon Dioxide (21-32) mmol/L Anion Gap (3-11) BUN (7-18) mg/dl Creatinine (0.6-1.2) mg/dl Est Cr Clr Drug Dosing ml/min Est GFR ( Amer) ml/min Est GFR (Non-Af Amer) ml/min BUN/Creatinine Ratio (10-20) Glucose (70-99) mg/dl POC Glucose 124 H 89 (70-99) mg/dl Calcium (8.5-10.1) mg/dl Phosphorus (2.5-4.9) mg/dl Magnesium (1.8-2.4) mg/dl Total Bilirubin (0.2-1) mg/dl Direct Bilirubin (0-0.2) mg/dl AST (15-37) U/L ALT (12-78) U/L Alkaline Phosphatase (45-117) U/L C-Reactive Protein (0-0.29) mg/dl Total Protein (6.4-8.2) gm/dl Albumin (3.4-5.0) gm/dl 07/15/21 07/14/21 07/14/21 Range/Units 06:08 20:13 16:55 WBC (4.8-10.8) K/uL RBC (4.2-5.4) M/uL Hgb (12.0-16.0) g/dL Hct (37-47) % MCV (80-100) fL MCH (25-34) pg MCHC (32-36) g/dL RDW Std Deviation (36.4-46.3) fL RDW Coeff of Davion (11.5-14.5) % Plt Count (130-400) K/uL MPV (7.4-10.4) fL Immature Gran % (Auto) % Neut % (Auto) % Lymph % (Auto) % Roane % (Auto) % Eos % (Auto) % Baso % (Auto) % Neut # (Auto) (1.4-6.5) K/uL Lymph # (Auto) (1.2-3.4) K/uL Roane # (Auto) (0.11-0.59) K/uL Eos # (Auto) (0-0.5) K/uL Baso # (Auto) (0-0.2) K/uL Immature Gran # (Auto) (0.00-0.02) K/uL Sodium 139 (136-145) mmol/L Potassium 3.8 (3.5-5.1) mmol/L Chloride 108 H (98-107) mmol/L Carbon Dioxide 25 (21-32) mmol/L Anion Gap 5.0 (3-11) BUN 14 (7-18) mg/dl Creatinine 0.52 L (0.6-1.2) mg/dl Est Cr Clr Drug Dosing 132.0 ml/min Est GFR ( Amer) 140.5 ml/min Est GFR (Non-Af Amer) 121.2 ml/min BUN/Creatinine Ratio 27.6 H (10-20) Glucose 95 (70-99) mg/dl POC Glucose 158 H 133 H (70-99) mg/dl Calcium 8.6 (8.5-10.1) mg/dl Phosphorus 2.9 (2.5-4.9) mg/dl Magnesium 2.4 (1.8-2.4) mg/dl Total Bilirubin 0.5 (0.2-1) mg/dl Direct Bilirubin < 0.1 (0-0.2) mg/dl AST 16 (15-37) U/L ALT 40 (12-78) U/L Alkaline Phosphatase 48 (45-117) U/L C-Reactive Protein 2.03 H (0-0.29) mg/dl Total Protein 6.5 (6.4-8.2) gm/dl Albumin 2.6 L (3.4-5.0) gm/dl Diagnostic Findings CXR image Chest X-Ray 07/15/21 07:00 XR chest 1V portable HISTORY: 40 years-old Female Follow-up pneumonia, Covid follow-up study in a patient with known pneumonia COMPARISON: CTA chest 07/12/2021 TECHNIQUE: Portable AP view of the chest FINDINGS: The spinal and hilar silhouettes are unchanged. Persistent extensive mid and lower lung zone airspace opacities appear unchanged. No pneumothorax or large pleural effusion. The bones appear intact. IMPRESSION: Unchanged extensive bilateral airspace opacities compatible with multifocal pneumonia. ACT 112: Negative or not required by law. The above report was generated using voice recognition software. It may contain grammatical, syntax or spelling errors. Electronically signed by: Jared Harding M.D. 07/15/2021 9:02 AM personally reviewed by me and agree with the following report: PG Care Time/CCT Total # of Minutes Spent Total Time Spent with Patient: Total time spent is greater than 50% in coor dination of care (as documented) at patient's floor/unit and/or counseling patient: Coding Level of Care Code 92836 Subseq Hosp Care Lvl 3 Diagnoses COVID-19 U07.1 Hypoxia R09.02 Pneumonia due to COVID-19 virus U07.1; J12.82 Depression with anxiety F41.8 Acid reflux K21.9 Prediabetes R73.03 Hypokalemia E87.6 Thrombocytosis D47.3
[2021-07-15] MEDS ORDERED: FUROSEMIDE 20 MG in SYRINGE 0 ML IV ONE (12:30)
[2021-07-15] MEDS: FAMOTIDINE 20 MG TAB PO SCH (20:11)
[2021-07-16] MEDS: ALBUTEROL HFA 8 GM INHALER INH SCH ×4 (00:06→20:25)
[2021-07-16] MEDS ORDERED: AZITHROMYCIN 250 MG TAB PO SCH (09:00)
[2021-07-16] MEDS: dexAMETHasone 6 MG in SYRINGE 0 ML IV SCH (09:23)
[2021-07-16] MEDS: INSULIN ASPART 100 UNITS/ML 3 ML PEN SC SCH ×4 (09:23→20:51)
[2021-07-16] MEDS: ENOXAPARIN INJ 40 MG/0.4 ML SYR SQ SCH ×2 (09:24→21:16)
[2021-07-16 10:26] LABS: Albumin Level 2.9 gm/dl (3.4-5.0); BUN Creatinine Ratio 21.6 (10-20); C Reactive Protein 1.11 mg/dl (0-0.29); Calcium 8.7 mg/dl (8.5-10.1); Creatinine Clr Calc Pharmacy 98.1 ml/min; Est GFR (African American) 127.4 ml/min; Est GFR (Non-African American) 109.9 ml/min; Magnesium 2.5 mg/dl (1.8-2.4); Potassium 3.4 mmol/L (3.5-5.1)
[2021-07-16 10:29] LABS: Albumin Globulin Ratio 0.7 (0.9-2); Bilirubin,Total 0.6 mg/dl (0.2-1); Globulin 3.9 gm/dl (2.5-4.0); Total Protein 6.8 gm/dl (6.4-8.2)
[2021-07-16] MEDS ORDERED: POTASSIUM CHLORIDE CRTAB 20 MEQ TABCR PO STA ×2 (18:47)
--- NOTE | 2021-07-16 18:51 | Hospitalist Progress Note ---
Date of Service July 16, 2021 Assessment & Plan (1) COVID-19: Plan: 40yo female with Covid-19 PNA - approximately day 13 of illness on the day of admission. Patient hypoxic on arrival at 83%, minimal improvement with NC, Oxymask and NRB. Was then placed on HFNC 40 L, 70-100% FiO2 saturating 89-91 %. Now weaned down to 35 L and 60% FiO2 No tachypnea but generally very weak and she does desaturate with minimal movement CRP = 12.3 on admission and now decreased to 1.1 Received tocilizumab on 07/13 Ddimer = 1020 with no PE on CTA proBNP mildly elevated, procalcitonin negative CTA with multilobar groundglass opacities, no PE Continues to be having a lot of issues with weakness, fatigue, poor motivation to use flutter valve. Also feeling sad and isolated from family. Encouragement provided daily and she is slightly improved on 07/16. She is proning, lying on side. Only risk factor for severe disease is a history of smoking. Likely some sort of genetic predisposition as her father is also currently hospitalized and on a ventilator She has been taking dexamethasone orally as an outpatient since 07/09 -Continue HFNC and wean off as able to -Encouraged proning as much as possible, gave encouragement to use flutter valve, incentive spirometry -Continue chest PT -Gave one dose of IV lasix 20mg on 07/15 and will give another dose on 07/16 to keep in slightly neg to even fluid balance -Keith catheter placed on 07/15 due to significant desaturation with minimal movement to urinate -Continue dexamethasone 6mg IV daily x10-day course-last dose will be on 07/18 -Has now completed a 5-day course of azithromycin -DVT prophylaxis with Lovenox 40mg BID -Continue Mucinex, Tessalon, Tylenol and Albuterol scheduled HFA -Afrin nasal spray as needed for nasal congestion to assist with nasal cannula supplemental O2 -Follow CBC, CMP (2) Hypoxia: Plan: Acute respiratory failure with hypoxia secondary to Covid-19 pneumonia as above (3) Pneumonia due to COVID-19 virus: Plan: As above CXR 07/15 still with extensive bilat infiltrates unchanged from previous (4) Depression with anxiety: Plan: Chronic -Patient not currently on any medications for depression (5) Acid reflux: Plan: Chronic -Continue Pepcid 20mg po qHS (6) Prediabetes: Plan: With hyperglycemia here likely related to corticosteroid use-was improved, but this evening had a blood sugar of 251 which seems to be an outlier Hemoglobin A1c 6.0% which is in prediabetic range Continue NovoLog sliding scale and Eyle-Zhbew-[id number] correction factor slightly today (7) Hypokalemia: Plan: Mildly low again today secondary to Lasix use Replace with potassium chloride 40 mEq p.o. x1 Follow BMP in a.m. Giving Lasix again today (8) Thrombocytosis: Plan: Platelets up to 580s This is almost certainly a reactive thrombocytosis to the viral infection Follow CBC Plan: DVT Ppx - Lovenox 40mg BID Code - Full Dispo -continued stay, remain in PCU on Covid sam Admission and Anticipated Discharge Date Admission Date: July 12, 2021 Subjective Patient reports still very tired and has trouble keeping her eyes open during the day but did feel she slept very well last night. We had a long discussion about encouraging her to mobilize herself little bit more and about using her flutter valve and incentive spirometry. She is not ready to take the Keith catheter out yet as she does not feel she has the energy to even move to go to the bathroom. She is eating more today. She does seem to have slightly improved spirits today. Her high flow nasal cannula was weaned down slightly to 35 L of flow and remains on 60% FiO2 Review of Systems Review of Systems: All systems reviewed & are unremarkable except as noted in HPI & below Physical Exam Constitutional: WD/WN, vitals as above Eyes: + anicteric sclerae Neck: trachea midline, no thyromegaly Respiratory: + abnormal respiratory effort (poor inspiratory effort) and does not use accessory muscles Auscultation: + crackles (Bilateral lower and middle lung ervin); no rhonchi and no wheezes Cardiovascular: RRR, no murmur, no edema Chest (Breasts): Chest: normal inspection of chest Gastrointestinal (Abdomen): normal bowel sounds, soft, nontender, no hepatosplenomegaly Musculoskeletal: Extremities: extremities normal to inspection; no cyanosis and no clubbing Skin: no rashes, warm and dry Neurologic: moves all extremities and awake; no focal motor deficits Psychiatric: Orientation: alert and oriented x 3 Affect: euthymic affect Lymphatic: no lymphedema Results & Data Results & Data ([facility]) Vital Signs (Past 12 Hours) Vital Signs Temp Pulse Pulse Resp BP Pulse Ox 07/16/21 16:00 92 H 07/16/21 15:22 100 H 18 92 07/16/21 15:02 36.8 C 84 19 103/69 94 07/16/21 12:32 101 H 24 90 07/16/21 12:30 101 H 24 90 07/16/21 11:07 36.6 C 81 19 98/72 L 93 07/16/21 08:00 60 07/16/21 07:26 36.4 C L 75 18 98/73 L 93 07/16/21 07:15 77 20 92 Laboratory Results 07/16/21 07/16/21 07/16/21 Range/Units 16:08 11:06 09:13 Sodium 137 (136-145) mmol/L Potassium 3.4 L (3.5-5.1) mmol/L Chloride 103 (98-107) mmol/L Carbon Dioxide 28 (21-32) mmol/L Anion Gap 6.0 (3-11) BUN 15 (7-18) mg/dl Creatinine 0.70 (0.6-1.2) mg/dl Est Cr Clr Drug Dosing 98.1 ml/min Est GFR ( Amer) 127.4 ml/min Est GFR (Non-Af Amer) 109.9 ml/min BUN/Creatinine Ratio 21.6 H (10-20) Glucose 115 H (70-99) mg/dl POC Glucose 251 H 104 H (70-99) mg/dl Calcium 8.7 (8.5-10.1) mg/dl Magnesium 2.5 H (1.8-2.4) mg/dl Total Bilirubin 0.6 (0.2-1) mg/dl AST 43 H (15-37) U/L ALT 73 (12-78) U/L Alkaline Phosphatase 47 (45-117) U/L C-Reactive Protein 1.11 H (0-0.29) mg/dl Total Protein 6.8 (6.4-8.2) gm/dl Albumin 2.9 L (3.4-5.0) gm/dl Globulin 3.9 (2.5-4.0) gm/dl Albumin/Globulin Ratio 0.7 L (0.9-2) 07/16/21 07/15/21 Range/Units 07:25 20:27 Sodium (136-145) mmol/L Potassium (3.5-5.1) mmol/L Chloride (98-107) mmol/L Carbon Dioxide (21-32) mmol/L Anion Gap (3-11) BUN (7-18) mg/dl Creatinine (0.6-1.2) mg/dl Est Cr Clr Drug Dosing ml/min Est GFR ( Amer) ml/min Est GFR (Non-Af Amer) ml/min BUN/Creatinine Ratio (10-20) Glucose (70-99) mg/dl POC Glucose 91 131 H (70-99) mg/dl Calcium (8.5-10.1) mg/dl Magnesium (1.8-2.4) mg/dl Total Bilirubin (0.2-1) mg/dl AST (15-37) U/L ALT (12-78) U/L Alkaline Phosphatase (45-117) U/L C-Reactive Protein (0-0.29) mg/dl Total Protein (6.4-8.2) gm/dl Albumin (3.4-5.0) gm/dl Globulin (2.5-4.0) gm/dl Albumin/Globulin Ratio (0.9-2) PG Care Time/CCT Total # of Minutes Spent Total Time Spent with Patient: Total time spent is greater than 50% in coordination of care (as documented) at patient's floor/unit and/or counseling patient: Coding Level of Care Code 43300 Subseq Hosp Care Lvl 3 Diagnoses COVID-19 U07.1 Hypoxia R09.02 Pneumonia due to COVID-19 virus U07.1; J12.82 Depression with anxiety F41.8 Acid reflux K21.9 Prediabetes R73.03 Hypokalemia E87.6 Thrombocytosis D47.3
[2021-07-16] MEDS ORDERED: FUROSEMIDE 20 MG in SYRINGE 0 ML IV ONE (19:00)
[2021-07-16] MEDS ORDERED: FUROSEMIDE 40 MG/4 ML VIAL IV ONE (19:00)
[2021-07-16] MEDS: FAMOTIDINE 20 MG TAB PO SCH (21:16)
[2021-07-17] MEDS: ALBUTEROL HFA 8 GM INHALER INH SCH ×2 (00:28→07:21)
[2021-07-17 06:49] LABS: Basophils # (auto) 0.02 K/uL (0-0.2); Basophils % (auto) 0.2 %; Eosinophils # (auto) 0.18 K/uL (0-0.5); Eosinophils % (auto) 1.4 %; Hematocrit (blood only) 37.9 % (37-47); Hemoglobin 13.4 g/dL (12.0-16.0); Immature Granulocytes % (auto) 0.8 %; Lymphocytes # (auto) 2.21 K/uL (1.2-3.4); Lymphocytes % (auto) 17.8 %; Mean Corpuscular Hemoglobin 32.4 pg (25-34); Mean Corpuscular Hgb Conc 35.4 g/dL (32-36); Mean Corpuscular Volume 91.5 fL (80-100); Mean Platelet Volume 9.5 fL (7.4-10.4); Monocytes # (auto) 1.24 K/uL (0.11-0.59); Neutrophils # (auto) 8.69 K/uL (1.4-6.5); Neutrophils % (auto) 69.8 %; Platelet Count 648 K/uL (130-400); RDW Coefficient of Variation 12.2 % (11.5-14.5); RDW Standard Deviation 40.7 fL (36.4-46.3); Red Blood Count 4.14 M/uL (4.2-5.4); White Blood Count 12.44 K/uL (4.8-10.8)
[2021-07-17 07:21] LABS: BUN Creatinine Ratio 24.2 (10-20); Calcium 8.6 mg/dl (8.5-10.1); Creatinine Clr Calc Pharmacy 124.8 ml/min; Est GFR (African American) 137.9 ml/min; Magnesium 2.3 mg/dl (1.8-2.4); Potassium 3.5 mmol/L (3.5-5.1)
[2021-07-17] MEDS: INSULIN ASPART 100 UNITS/ML 3 ML PEN SC SCH ×4 (09:34→23:52)
[2021-07-17] MEDS: dexAMETHasone 6 MG in SYRINGE 0 ML IV SCH (09:47)
--- NOTE | 2021-07-17 10:19 | Hospitalist Progress Note ---
Date of Service July 17, 2021 Assessment & Plan (1) COVID-19: Plan: 40yo female with Covid-19 PNA - approximately day 13 of illness on the day of admission. Patient hypoxic on arrival at 83% on room air placed on HFNC 40 L 100% FiO2 saturating 89-91 %. weaned down to 35 L and 55% FiO2 today very fatigued and weak, cannot lay prone, minimal cough CRP = 12.3 on admission and now decreased to 1.1 Received tocilizumab on 07/13 Ddimer = 1020 with no PE on CTA proBNP mildly elevated, procalcitonin negative CTA with multilobar groundglass opacities, no PE Continues to be having a lot of issues with weakness, fatigue, poor motivation to use flutter valve. Also feeling sad and isolated from family. -Continue HFNC and wean off as able to -Encouraged proning as much as possible, gave encouragement to use flutter valve, incentive spirometry Lasix 20mg IV on 07/16 and 07/15, no need for Lasix today but might give another dose tomorrow -Keith catheter placed on 07/15 due to significant desaturation with minimal movement to urinate -Continue dexamethasone 6mg IV daily x10-day course-last dose will be on 07/18 -Has now completed a 5-day course of azithromycin -DVT prophylaxis with Lovenox 40mg BID -Continue Mucinex, Tessalon, Tylenol and Albuterol scheduled HFA -Afrin nasal spray as needed for nasal congestion to assist with nasal cannula supplemental O2 -Follow CBC, CMP (2) Hypoxia: Plan: Acute respiratory failure with hypoxia secondary to Covid-19 pneumonia as above down slightly at 35L and 55% FiO2 continue to wean as tolerated (3) Pneumonia due to COVID-19 virus: Plan: As above CXR 07/15 still with extensive bilat infiltrates unchanged from previous repeat CXR tomorrow (4) Depression with anxiety: Plan: Chronic -Patient not currently on any medications for depression very tearful, misses her family ( and 5 children) (5) Acid reflux: Plan: Chronic -Continue Pepcid 20mg po qHS (6) Prediabetes: Plan: Hemoglobin A1c 6.0% which is in prediabetic range Continue NovoLog sliding scale and Accu-Cheks, monitor for hypoglycemia (7) Hypokalemia: Plan: up to 3.5 this morning (8) Thrombocytosis: Plan: This is almost certainly a reactive thrombocytosis to the viral infection Follow CBC Plan: DVT Ppx - Lovenox 40mg BID Code - Full Dispo -continued stay, remain in PCU on Covid sam Admission and Anticipated Discharge Date Admission Date: July 12, 2021 Subjective reviewed chart and labs as this is my first day with patient patient is very fatigued and tearful, depressed, misses her family so much she is with 5 children and this is very difficult for her, she is normally healthy, working hard all the time the high flow NC is driving her crazy, irritating her nose, she is trying to lay prone but finding it difficult her appetite is intact which is good, she had a BM yesterday that was formed she responded to the Lasix, says that it makes her nauseated, SBP is 98 so will hold on Lasix today encouraged her to hang in there, she is slowly improving, on less oxygen now than when she was admitted will check labs and CXR tomorrow encouraged her to focus on one day at a time, focus on what she can control as we need to wait for her lungs to recover I told her she can go home on oxygen but needs to be on a lot less oxygen than now Review of Systems Review of Systems: All systems reviewed & are unremarkable except as noted in Subjective Constitutional: + fatigue and + weakness; no fever Respiratory: + cough, + dyspnea and + dyspnea on exertion; no pain with cough and no sputum production Cardiovascular: no chest pain and no edema Gastrointestinal: no abdominal pain, no nausea, no vomiting, no constipation and no diarrhea/loose stools Psychiatric: + depression Physical Exam Constitutional: well developed, well nourished, + ill appearing and + frail appearing; no acute distress Neck: trachea midline, no thyromegaly Respiratory: + cough and + tachypneic; no respiratory distress, no labored breathing and does not use accessory muscles Auscultation: lungs clear to auscultation bilaterally Cardiovascular: Rate/Rhythm: regular rhythm and + tachycardic Heart Sounds: normal S1 and normal S2; no murmur Extremities: normal capillary refill; no edema Gastrointestinal (Abdomen): normal bowel sounds, soft, nontender, no hepatosplenomegaly Musculoskeletal: no cyanosis or clubbing, extremities motor strength 5/5 Skin: no rashes, warm and dry Neurologic: normal touch/pain/proprioception, CN's II-XI intact bilaterally, moves all extremities and awake; no focal motor deficits Psychiatric: Orientation: alert and oriented x 3 Affect: + tearful affect Mood: + depressed mood Results & Data Results & Data ([facility]) Vital Signs (Past 12 Hours) Vital Signs Temp Pulse Pulse Pulse Resp BP Pulse Ox 07/17/21 08:00 92 H 07/17/21 07:21 60 18 95 07/17/21 07:14 36.4 C L 79 21 98/70 L 94 07/17/21 04:15 36.5 C 68 16 102/72 96 07/17/21 03:35 80 22 92 07/16/21 23:29 64 20 94 07/16/21 23:05 36.6 C 68 16 90/62 L 93 Laboratory Results Laboratory Results - last 24 hr 07/16/21 07/16/21 07/16/21 09:13 11:06 16:08 WBC RBC Hgb Hct MCV MCH MCHC RDW Std Deviation RDW Coeff of Davion Plt Count MPV Immature Gran % (Auto) Neut % (Auto) Lymph % (Auto) Norton % (Auto) Eos % (Auto) Baso % (Auto) Neut # (Auto) Lymph # (Auto) Norton # (Auto) Eos # (Auto) Baso # (Auto) Immature Gran # (Auto) Sodium 137 Potassium 3.4 L Chloride 103 Carbon Dioxide 28 Anion Gap 6.0 BUN 15 Creatinine 0.70 Est Cr Clr Drug Dosing 98.1 Est GFR ( Amer) 127.4 Est GFR (Non-Af Amer) 109.9 BUN/Creatinine Ratio 21.6 H Glucose 115 H POC Glucose 104 H 251 H Calcium 8.7 Magnesium 2.5 H Total Bilirubin 0.6 AST 43 H ALT 73 Alkaline Phosphatase 47 C-Reactive Protein 1.11 H Total Protein 6.8 Albumin 2.9 L Globulin 3.9 Albumin/Globulin Ratio 0.7 L 07/16/21 07/17/21 07/17/21 20:49 05:38 05:38 WBC 12.44 H RBC 4.14 L Hgb 13.4 Hct 37.9 MCV 91.5 MCH 32.4 MCHC 35.4 RDW Std Deviation 40.7 RDW Coeff of Davion 12.2 Plt Count 648 H MPV 9.5 Immature Gran % (Auto) 0.8 Neut % (Auto) 69.8 Lymph % (Auto) 17.8 Norton % (Auto) 10.0 Eos % (Auto) 1.4 Baso % (Auto) 0.2 Neut # (Auto) 8.69 H Lymph # (Auto) 2.21 Norton # (Auto) 1.24 H Eos # (Auto) 0.18 Baso # (Auto) 0.02 Immature Gran # (Auto) 0.10 H Sodium 136 Potassium 3.5 Chloride 103 Carbon Dioxide 25 Anion Gap 8.0 BUN 13 Creatinine 0.55 L Est Cr Clr Drug Dosing 124.8 Est GFR ( Amer) 137.9 Est GFR (Non-Af Amer) 119.0 BUN/Creatinine Ratio 24.2 H Glucose 101 H POC Glucose 113 H Calcium 8.6 Magnesium 2.3 Total Bilirubin AST ALT Alkaline Phosphatase C-Reactive Protein Total Protein Albumin Globulin Albumin/Globulin Ratio 07/17/21 07:16 WBC RBC Hgb Hct MCV MCH MCHC RDW Std Deviation RDW Coeff of Davion Plt Count MPV Immature Gran % (Auto) Neut % (Auto) Lymph % (Auto) Norton % (Auto) Eos % (Auto) Baso % (Auto) Neut # (Auto) Lymph # (Auto) Norton # (Auto) Eos # (Auto) Baso # (Auto) Immature Gran # (Auto) Sodium Potassium Chloride Carbon Dioxide Anion Gap BUN Creatinine Est Cr Clr Drug Dosing Est GFR ( Amer) Est GFR (Non-Af Amer) BUN/Creatinine Ratio Glucose POC Glucose 96 Calcium Magnesium Total Bilirubin AST ALT Alkaline Phosphatase C-Reactive Protein Total Protein Albumin Globulin Albumin/Globulin Ratio Medications Administered Current Inpatient Medications Acetaminophen (Acetaminophen 325 Mg Tab) 650 mg PO Q4H PRN PRN Reason: pain or fever Stop: 08/11/21 22:34 Last Admin: 07/14/21 17:35 Dose: 650 mg Documented by: Albuterol (Albuterol Hfa 8 Gm Inhaler) 2 puffs INH Q6R [facility] Stop: 08/12/21 18:59 Last Admin: 07/17/21 07:21 Dose: 2 puffs Documented by: Benzonatate (Benzonatate 100 Mg Capsule) 100 mg PO TID PRN PRN Reason: Cough Stop: 08/11/21 22:34 Last Admin: 07/15/21 20:11 Dose: 100 mg Documented by: Enoxaparin Sodium (Enoxaparin Inj 40 Mg/0.4 Ml Syr) 40 mg SQ Q12H [facility] Stop: 08/12/21 00:59 Last Admin: 07/16/21 21:16 Dose: 40 mg Documented by: Famotidine (Famotidine 20 Mg Tab) 20 mg PO HS [facility] Stop: 08/12/21 20:59 Last Admin: 07/16/21 21:16 Dose: 20 mg Documented by: Dexamethasone 6 mg/ Syringe 1.5 mls @ 1 mls/min IV Q24H [facility] Stop: 07/18/21 23:59 Last Admin: 07/17/21 09:47 Dose: 1 mls/min Documented by: Insulin Aspart (Insulin Aspart 100 Units/Ml 3 Ml Pen) 0 units SC ACHS [facility]; Protocol Stop: 08/12/21 11:29 Last Admin: 07/17/21 09:34 Dose: Not Given Documented by: Ondansetron HCl (Ondansetron Inj 2 Mg/Ml 2 Ml Vial) 4 mg IV Q6H PRN PRN Reason: Nausea And Vomiting Stop: 08/11/21 22:59 Oxymetazoline HCl (Oxymetazoline 0.05% 30 Ml Btl) 1 sprays NA BID PRN PRN Reason: nasal congestion Stop: 08/12/21 16:53 Last Admin: 07/13/21 17:52 Dose: 1 sprays Documented by: PG Care Time/CCT Total # of Minutes Spent Total Time Spent: 32 Total Time Spent with Patient: Total time spent is greater than 50% in coordination of care (as documented) at patient's floor/unit and/or counseling patient: Coding Level of Care Code 54777 Subseq Hosp Care Lvl 3 (25 - SIGNIFICANT, SEPARATELY IDENTIFIABLE ) Diagnoses COVID-19 U07.1 Hypoxia R09.02 Pneumonia due to COVID-19 virus U07.1; J12.82 Depression with anxiety F41.8 Acid reflux K21.9 Prediabetes R73.03 Hypokalemia E87.6 Thrombocytosis D47.3
[2021-07-17] MEDS ORDERED: ALBUTEROL HFA 8 GM INHALER INH PRN (10:21)
[2021-07-17] MEDS: ENOXAPARIN INJ 40 MG/0.4 ML SYR SQ SCH ×2 (11:39→21:43)
[2021-07-17] MEDS: FAMOTIDINE 20 MG TAB PO SCH (21:43)
--- NOTE | 2021-07-18 07:50 | XRay Report ---
XR chest 1V portable HISTORY: COVID pneumonia COMPARISON: Chest 07/15/2021. FINDINGS: Patchy bilateral airspace opacities within the mid to lower lung zones persists. The heart is normal in size. No pneumothorax. No pleural effusions. IMPRESSION: No change in the patchy bilateral airspace opacities within the mid to lower lung zones consistent wi th a viral pneumonia. ACT 112: Negative or not required by law. Electronically signed by: Riley Schumacher M.D. 07/18/2021 7:49 AM
[2021-07-18 08:18] LABS: BUN Creatinine Ratio 21.4 (10-20); Calcium 8.9 mg/dl (8.5-10.1); Creatinine Clr Calc Pharmacy 99.5 ml/min; Est GFR (Non-African American) 110.4 ml/min; Magnesium 2.3 mg/dl (1.8-2.4); Potassium 3.7 mmol/L (3.5-5.1)
[2021-07-18] MEDS: INSULIN ASPART 100 UNITS/ML 3 ML PEN SC SCH ×4 (08:41→21:54)
[2021-07-18] MEDS: dexAMETHasone 6 MG in SYRINGE 0 ML IV SCH (08:41)
--- NOTE | 2021-07-18 10:35 | Hospitalist Progress Note ---
Date of Service July 18, 2021 Assessment & Plan (1) COVID-19: Plan: 40yo female with Covid-19 PNA - approximately day 13 of illness on the day of admission. Patient hypoxic on arrival at 83% on room air placed on HFNC 40 L 100% FiO2 saturating 89-91 %. weaned down 12L wall high flow on 07/17, today she is down even further at 6L, marked improvement over past 24 hours more energy today, more motivated, will remove tracey, get her OOB to chair CRP = 12.3 on admission and now decreased to 1.1 Received tocilizumab on 07/13 Ddimer = 1020 with no PE on CTA proBNP mildly elevated, procalcitonin negative CTA with multilobar groundglass opacities, no PE CXR 07/18 with unchanged infiltrates, but they are not worse which is good sign -Encouraged proning as much as possible, gave encouragement to use flutter valve, incentive spirometry -Continue dexamethasone 6mg IV daily x10-day course-last dose will be on 07/18 (today) -Has now completed a 5-day course of azithromycin -DVT prophylaxis with Lovenox 40mg BID -Continue Mucinex, Tessalon, Tylenol and Albuterol scheduled HFA -Afrin nasal spray as needed for nasal congestion to assist with nasal cannula supplemental O2 -Follow CBC, CMP try for discharge by this weekend (2) Hypoxia: Plan: Acute respiratory failure with hypoxia secondary to Covid-19 pneumonia as above much improved the past 24 hours, down to 6L wall high flow continue to wean as tolerated (3) Pneumonia due to COVID-19 virus: Plan: As above CXR 07/18 still with extensive bilat infiltrates unchanged from previous, but not worse (4) Depression with anxiety: Plan: Chronic -Patient not currently on any medications for depression very tearful, misses her family ( and 5 children) her father is intubated in room 105, she is very worried that he won't survive encouraged her to pray for him, but also focus on getting herself better first, I will keep her updated (5) Acid reflux: Plan: Chronic -Continue Pepcid 20mg po qHS (6) Prediabetes: Plan: Hemoglobin A1c 6.0% which is in prediabetic range Continue NovoLog sliding scale and Accu-Cheks, monitor for hypoglycemia (7) Hypokalemia: Plan: resolved (8) Thrombocytosis: Plan: This is almost certainly a reactive thrombocytosis to the viral infection Follow CBC periodically Plan: DVT Ppx - Lovenox 40mg BID Code - Full Dispo -continued stay, remain in PCU on Covid sam Admission and Anticipated Discharge Date Admission Date: July 12, 2021 Subjective patient doing much better, down to 6L, eating well, she has more energy today, more motivated she is hoping to get home by Saturday to watch [employer] with her , told her that it is definitely a possibility minimal cough, no fever/chills/sweats will get tracey out and sit in a chair today, ordered therapy to work with her, walk with her CXR this morning shows that infiltrates have not worsened which is a good sign she is asking about her father, Chato Kilpatrick, he is intubated in room 105 explained that he is my patient, I told her that I will give her a more thorough update after I see him this morning and speak with Dr. Merlos she is very tearful, said that her father helped raise her one son, not sure what she would do without her father encouraged her to keep praying, focus on getting herself better and we will take care of her father Review of Systems Review of Systems: All systems reviewed & are unremarkable except as noted in Subjective Constitutional: + fatigue and + weakness; no fever and no sweats Respiratory: + cough, + dyspnea and + dyspnea on exertion; no sputum production Cardiovascular: no chest pain Physical Exam Constitutional: well developed, well nourished, + ill appearing and + frail appearing; no acute distress Neck: trachea midline, no thyromegaly Respiratory: normal respiratory effort and + cough; no respiratory distress, no labored breathing and does not use accessory muscles Auscultation: lungs clear to auscultation bilaterally Cardiovascular: Rate/Rhythm: regular rate and regular rhythm Heart Sounds: normal S1 and normal S2; no murmur Extremities: normal capillary refill; no edema Gastrointestinal (Abdomen): normal bowel sounds, soft, nontender, no hepatosplenomegaly Musculoskeletal: no cyanosis or clubbing, extremities motor strength 5/5 Skin: no rashes, warm and dry Neurologic: normal touch/pain/proprioception, CN's II-XI intact bilaterally, moves all extremities and awake; no focal motor deficits Psychiatric: Orientation: alert and oriented x 3 Affect: + tearful affect Mood: + depressed mood Results & Data Results & Data ([facility]) Vital Signs (Past 12 Hours) Vital Signs Temp Pulse Pulse Pulse Resp BP Pulse Ox 07/18/21 07:19 36.6 C 80 20 93/68 L 90 07/18/21 03:23 36.7 C 72 17 103/71 92 07/17/21 23:23 68 19 95/74 L 07/17/21 23:13 89 Laboratory Results Laboratory Results - last 24 hr 07/17/21 07/17/21 07/17/21 11:48 16:34 20:32 Sodium Potassium Chloride Carbon Dioxide Anion Gap BUN Creatinine Est Cr Clr Drug Dosing Est GFR ( Amer) Est GFR (Non-Af Amer) BUN/Creatinine Ratio Glucose POC Glucose 124 H 187 H 110 H Calcium Magnesium 07/18/21 07/18/21 06:54 07:18 Sodium 137 Potassium 3.7 Chloride 104 Carbon Dioxide 26 Anion Gap 7.0 BUN 15 Creatinine 0.69 Est Cr Clr Drug Dosing 99.5 Est GFR ( Amer) 128.0 Est GFR (Non-Af Amer) 110.4 BUN/Creatinine Ratio 21.4 H Glucose 86 POC Glucose 87 Calcium 8.9 Magnesium 2.3 Medications Administered Current Inpatient Medications Acetaminophen (Acetaminophen 325 Mg Tab) 650 mg PO Q4H PRN PRN Reason: pain or fever Stop: 08/11/21 22:34 Last Admin: 07/14/21 17:35 Dose: 650 mg Documented by: Albuterol (Albuterol Hfa 8 Gm Inhaler) 2 puffs INH Q6R PRN PRN Reason: Shortness Of Breath Or Wheezing Stop: 08/12/21 18:59 Benzonatate (Benzonatate 100 Mg Capsule) 100 mg PO TID PRN PRN Reason: Cough Stop: 08/11/21 22:34 Last Admin: 07/15/21 20:11 Dose: 100 mg Documented by: Enoxaparin Sodium (Enoxaparin Inj 40 Mg/0.4 Ml Syr) 40 mg SQ Q12H [facility] Stop: 08/12/21 00:59 Last Admin: 07/17/21 21:43 Dose: 40 mg Documented by: Famotidine (Famotidine 20 Mg Tab) 20 mg PO HS [facility] Stop: 08/12/21 20:59 Last Admin: 07/17/21 21:43 Dose: 20 mg Documented by: Dexamethasone 6 mg/ Syringe 1.5 mls @ 1 mls/min IV Q24H [facility] Stop: 07/18/21 23:59 Last Admin: 07/18/21 08:41 Dose: 1 mls/min Documented by: Insulin Aspart (Insulin Aspart 100 Units/Ml 3 Ml Pen) 0 units SC ACHS [facility]; Protocol Stop: 08/12/21 11:29 Last Admin: 07/18/21 08:41 Dose: Not Given Documented by: Ondansetron HCl (Ondansetron Inj 2 Mg/Ml 2 Ml Vial) 4 mg IV Q6H PRN PRN Reason: Nausea And Vomiting Stop: 08/11/21 22:59 Oxymetazoline HCl (Oxymetazoline 0.05% 30 Ml Btl) 1 sprays NA BID PRN PRN Reason: nasal congestion Stop: 08/12/21 16:53 Last Admin: 07/13/21 17:52 Dose: 1 sprays Documented by: PG Care Time/CCT Total # of Minutes Spent Total Time Spent with Patient: Total time spent is greater than 50% in coordination of care (as documented) at patient's floor/unit and/or counseling patient: Coding Level of Care Code 15618 Subseq Hosp Care Lvl 3 Diagnoses COVID-19 U07.1 Hypoxia R09.02 Pneumonia due to COVID-19 virus U07.1; J12.82 Depression with anxiety F41.8 Acid reflux K21.9 Prediabetes R73.03 Hypokalemia E87.6 Thrombocytosis D47.3
[2021-07-18] MEDS: ENOXAPARIN INJ 40 MG/0.4 ML SYR SQ SCH ×2 (12:42→22:32)
[2021-07-18] MEDS: FAMOTIDINE 20 MG TAB PO SCH (22:32)
[2021-07-19] MEDS: INSULIN ASPART 100 UNITS/ML 3 ML PEN SC SCH ×4 (09:11→21:44)
[2021-07-19] MEDS ORDERED: ALPRAZolam 0.5 MG TABLET PO STA (09:49)
[2021-07-19] MEDS ORDERED: GLUCAGON FOR INJ 1 MG VIAL IM PRN (10:00)
[2021-07-19] MEDS ORDERED: DEXTROSE 50% 50 ML SYRINGE IV PRN (10:00)
[2021-07-19] MEDS ORDERED: CARBOHYDRATES FOR HYPOGLYCEMIA PO PRN (10:00)
[2021-07-19] MEDS ORDERED: GLUCOSE 10 TABS/TUBE PO PRN (10:00)
[2021-07-19] MEDS ORDERED: GLUCOSE 40% GEL 15 GM TUBE PO PRN (10:00)
[2021-07-19] MEDS ORDERED: ALPRAZolam 0.25 MG TABLET PO PRN (11:33)
--- NOTE | 2021-07-19 11:36 | Hospitalist Progress Note ---
Date of Service July 19, 2021 Assessment & Plan (1) COVID-19: Plan: 40yo female with Covid-19 PNA - approximately day 13 of illness on the day of admission. Patient hypoxic on arrival at 83% on room air placed on HFNC 40 L 100% FiO2 saturating 89-91 %. weaned down to 3L this afternoon, marked improvement the past 48 hours OOB in chair today, eating well, ambulating to the toilet motivated to get a shower, bringing in change of clothes CRP = 12.3 on admission and now decreased to 1.1 Received tocilizumab on 07/13 Ddimer = 1020 with no PE on CTA proBNP mildly elevated, procalcitonin negative CTA with multilobar groundglass opacities, no PE CXR 07/18 with unchanged infiltrates, but they are not worse which is good sign -Completed dexamethasone 6mg IV daily, 10-day course -Has now completed a 5-day course of azithromycin -DVT prophylaxis with Lovenox 40mg BID -Continue Mucinex, Tessalon, Tylenol and Albuterol PRN -Afrin nasal spray as needed for nasal congestion to assist with nasal cannula supplemental O2 -Follow CBC, CMP try for discharge by Saturday 07/21 (2) Hypoxia: Plan: Acute respiratory failure with hypoxia secondary to Covid-19 pneumonia as above much improved the past 48 hours, down to 3L wall high flow continue to wean as tolerated (3) Pneumonia due to COVID-19 virus: Plan: As above CXR 07/18 still with extensive bilat infiltrates unchanged from previous, but not worse finished 10 days of dexamethasone (4) Depression with anxiety: Plan: Chronic -Patient not currently on any medications for depression very tearful, misses her family ( and 5 children) her father is intubated in room 105, she is very worried that he won't survive encouraged her to pray for him, but also focus on getting herself better first, I will keep her updated Xanax 0.5mg this morning helped tremendously will start on Buspar 5mg BID, use Xanax 0.25 PRN (5) Acid reflux: Plan: Chronic -Continue Pepcid 20mg po qHS (6) Prediabetes: Plan: Hemoglobin A1c 6.0% which is in prediabetic range Continue NovoLog sliding scale and Accu-Cheks, monitor for hypoglycemia (7) Hypokalemia: Plan: resolved (8) Thrombocytosis: Plan: This is almost certainly a reactive thrombocytosis to the viral infection Follow CBC periodically Plan: DVT Ppx - Lovenox 40mg BID Code - Full Dispo -continued stay, remain in PCU on Covid sam Admission and Anticipated Discharge Date Admission Date: July 12, 2021 Subjective patient doing really well today, down to 4L this morning, down to 3L in the afternoon she was having a lot of anxiety, tearful thinking about her father great response to Xanax 0.5mg, a lot calmer, actually laughing she is eating great, no fever, she wants to get a shower, bringing her a change of clothes discussed that she might be ready to go as early as Saturday updated her on her father in room 105 Review of Systems Review of Systems: All systems reviewed & are unremarkable except as noted in Subjective Constitutional: no fever Respiratory: + cough, + dyspnea and + dyspnea on exertion Cardiovascular: no chest pain Gastrointestinal: no abdominal pain, no nausea and no vomiting Psychiatric: + anxiety Physical Exam Constitutional: well developed, well nourished, + ill appearing and + frail appearing; no acute distress Neck: trachea midline, no thyromegaly Respiratory: normal respiratory effort and + cough; no respiratory distress, no labored breathing and does not use accessory muscles Auscultation: lungs clear to auscultation bilaterally Cardiovascular: Rate/Rhythm: regular rate and regular rhythm Heart Sounds: normal S1 and normal S2; no murmur Extremities: normal capillary refill; no edema Gastrointestinal (Abdomen): normal bowel sounds, soft, nontender, no hepatosplenomegaly Musculoskeletal: no cyanosis or clubbing, extremities motor strength 5/5 Skin: no rashes, warm and dry Neurologic: normal touch/pain/proprioception, CN's II-XI intact bilaterally, moves all extremities and awake; no focal motor deficits Psychiatric: Orientation: alert and oriented x 3 Affect: + tearful affect Mood: + anxious mood Results & Data Results & Data ([facility]) Vital Signs (Past 12 Hours) Vital Signs Temp Pulse Pulse Pulse Resp BP Pulse Ox 07/19/21 09:53 65 07/19/21 07:46 36.5 C 101 H 20 110/70 93 07/19/21 03:29 36.8 C 60 18 97/67 L 98 Laboratory Results Laboratory Results - last 24 hr 07/18/21 07/18/21 07/18/21 11:52 16:32 20:09 POC Glucose 128 H 173 H 131 H 07/19/21 07:48 POC Glucose 83 Medications Administered Current Inpatient Medications Acetaminophen (Acetaminophen 325 Mg Tab) 650 mg PO Q4H PRN PRN Reason: pain or fever Stop: 08/11/21 22:34 Last Admin: 07/14/21 17:35 Dose: 650 mg Documented by: Albuterol (Albuterol Hfa 8 Gm Inhaler) 2 puffs INH Q6R PRN PRN Reason: Shortness Of Breath Or Wheezing Stop: 08/12/21 18:59 Alprazolam (Alprazolam 0.25 Mg Tablet) 0.25 mg PO Q8H PRN PRN Reason: Anxiety Stop: 08/18/21 11:32 Benzonatate (Benzonatate 100 Mg Capsule) 100 mg PO TID PRN PRN Reason: Cough Stop: 08/11/21 22:34 Last Admin: 07/15/21 20:11 Dose: 100 mg Documented by: Buspirone HCl (Buspirone 5 Mg Tab) 5 mg PO BID [facility] Stop: 08/18/21 20:59 Dextrose (Dextrose 50% 50 Ml Syringe) 25 - 50 ml IV UD PRN; Protocol PRN Reason: Hypoglycemia Protocol Stop: 08/18/21 09:59 Enoxaparin Sodium (Enoxaparin Inj 40 Mg/0.4 Ml Syr) 40 mg SQ Q12H [facility] Stop: 08/12/21 00:59 Last Admin: 07/18/21 22:32 Dose: 40 mg Documented by: Famotidine (Famotidine 20 Mg Tab) 20 mg PO HS [facility] Stop: 08/12/21 20:59 Last Admin: 07/18/21 22:32 Dose: 20 mg Documented by: Glucagon (Glucagon For Inj 1 Mg Vial) 1 mg IM UD PRN; Protocol PRN Reason: Hypoglycemia Protocol Stop: 08/18/21 09:59 Glucose (Glucose 40% Gel 15 Gm Tube) 15 - 30 gm PO UD PRN; Protocol PRN Reason: Hypoglycemia Protocol Stop: 08/18/21 09:59 Glucose (Glucose 10 Tabs/Tube) 4 - 8 tabs PO UD PRN; Protocol PRN Reason: Hypoglycemia Protocol Stop: 08/18/21 09:59 Insulin Aspart (Insulin Aspart 100 Units/Ml 3 Ml Pen) 0 units SC ACHS [facility]; Protocol Stop: 08/12/21 11:29 Last Admin: 07/19/21 09:11 Dose: 3 units Documented by: Miscellaneous (Carbohydrates For Hypoglycemia ) 15 - 30 gm PO UD PRN PRN Reason: Hypoglycemia Treatment Stop: 08/18/21 09:59 Ondansetron HCl (Ondansetron Inj 2 Mg/Ml 2 Ml Vial) 4 mg IV Q6H PRN PRN Reason: Nausea And Vomiting Stop: 08/11/21 22:59 Oxymetazoline HCl (Oxymetazoline 0.05% 30 Ml Btl) 1 sprays NA BID PRN PRN Reason: nasal congestion Stop: 08/12/21 16:53 Last Admin: 07/13/21 17:52 Dose: 1 sprays Documented by: PG Care Time/CCT Total # of Minutes Spent Total Time Spent with Patient: Total time spent is greater than 50% in coordination of care (as documented) at patient's floor/unit and/or counseling patient: Coding Level of Care Code 15484 Subseq Hosp Care Lvl 3 Diagnoses COVID-19 U07.1 Hypoxia R09.02 Pneumonia due to COVID-19 virus U07.1; J12.82 Depression with anxiety F41.8 Acid reflux K21.9 Prediabetes R73.03 Hypokalemia E87.6 Thrombocytosis D47.3
[2021-07-19] MEDS: ENOXAPARIN INJ 40 MG/0.4 ML SYR SQ SCH ×2 (13:22→23:42)
[2021-07-19] MEDS: FAMOTIDINE 20 MG TAB PO SCH (20:44)
[2021-07-19] MEDS: busPIRone 5 MG TAB PO SCH (20:44)
[2021-07-20 06:51] LABS: BUN Creatinine Ratio 24.4 (10-20); Calcium 8.7 mg/dl (8.5-10.1); Est GFR (African American) 129.9 ml/min; Est GFR (Non-African American) 112.1 ml/min; Potassium 3.6 mmol/L (3.5-5.1)
[2021-07-20] MEDS: busPIRone 5 MG TAB PO SCH ×3 (09:43→20:52)
[2021-07-20] MEDS: INSULIN ASPART 100 UNITS/ML 3 ML PEN SC SCH ×2 (10:18→13:54)
--- NOTE | 2021-07-20 10:39 | Hospitalist Progress Note ---
Date of Service July 20, 2021 Assessment & Plan (1) COVID-19: Plan: 40yo female with Covid-19 PNA - approximately day 13 of illness on the day of admission. Patient hypoxic on arrival at 83% on room air placed on HFNC 40 L 100% FiO2 saturating 89-91 %. weaned down to 3L the past 24 hours, doing really well OOB in chair today, eating well, ambulating to the toilet cleaned herself up, feels more normal today CRP = 12.3 on admission and now decreased to 1.1 Received tocilizumab on 07/13 Ddimer = 1020 with no PE on CTA proBNP mildly elevated, procalcitonin negative CTA with multilobar groundglass opacities, no PE CXR 07/18 with unchanged infiltrates, but they are not worse which is good sign -Completed dexamethasone 6mg IV daily, 10-day course -Has now completed a 5-day course of azithromycin -DVT prophylaxis with Lovenox 40mg BID -Continue Mucinex, Tessalon, Tylenol and Albuterol PRN -Afrin nasal spray as needed for nasal congestion to assist with nasal cannula supplemental O2 -Follow CBC, CMP stop isolation precautions today, transfer to private room on medical floor (2) Hypoxia: Plan: Acute respiratory failure with hypoxia secondary to Covid-19 pneumonia as above much improved the past 72 hours, down to 3L wall high flow continue to wean as tolerated try for discharge in next 48 hours (3) Pneumonia due to COVID-19 virus: Plan: As above CXR 07/18 still with extensive bilat infiltrates unchanged from previous, but not worse finished 10 days of dexamethasone (4) Depression with anxiety: Plan: Chronic -Patient not currently on any medications for depression very tearful, misses her family ( and 5 children) her father is intubated in room 105, she is very worried that he won't survive encouraged her to pray for him, but also focus on getting herself better first, I will keep her updated Xanax 0.5mg 07/19 in the morning helped tremendously will start on Buspar 5mg BID, use Xanax 0.25 PRN (5) Acid reflux: Plan: Chronic -Continue Pepcid 20mg po qHS (6) Prediabetes: Plan: Hemoglobin A1c 6.0% which is in prediabetic range Continue NovoLog sliding scale and Accu-Cheks, monitor for hypoglycemia (7) Hypokalemia: Plan: resolved (8) Thrombocytosis: Plan: This is almost certainly a reactive thrombocytosis to the viral infection Follow CBC periodically Plan: DVT Ppx - Lovenox 40mg BID Code - Full Dispo -continued stay, remain in PCU on Covid sam Admission and Anticipated Discharge Date Admission Date: July 12, 2021 Subjective patient feeling a lot better, brought her some things from home, she can pay her bills on ipad she is eating well, really well breathing easy on 3L NC, will stop isolation precautions RN working on getting her down to see her father in room 105 checked BMP this morning, Cr and electrolytes normal Review of Systems Review of Systems: All systems reviewed & are unremarkable except as noted in Subjective Respiratory: + dyspnea on exertion Physical Exam Constitutional: well developed, well nourished and comfortable; no acute distress Neck: trachea midline, no thyromegaly Respiratory: normal respiratory effort and + cough; no respiratory distress, no labored breathing and does not use accessory muscles Auscultation: lungs clear to auscultation bilaterally Cardiovascular: Rate/Rhythm: regular rate and regular rhythm Heart Sounds: normal S1 and normal S2; no murmur Extremities: normal capillary refill; no edema Gastrointestinal (Abdomen): normal bowel sounds, soft, nontender, no hepatosplenomegaly Musculoskeletal: no cyanosis or clubbing, extremities motor strength 5/5 Skin: no rashes, warm and dry Neurologic: normal touch/pain/proprioception, CN's II-XI intact bilaterally, moves all extremities and awake; no focal motor deficits Psychiatric: Orientation: alert and oriented x 3 Affect: euthymic affect Mood: + anxious mood Results & Data Results & Data ([facility]) Vital Signs (Past 12 Hours) Vital Signs Temp Pulse Pulse Resp BP Pulse Ox 07/20/21 07:14 36.5 C 86 19 114/74 95 07/20/21 04:18 37.0 C 67 17 93/65 L 97 07/19/21 23:24 37.0 C 66 18 95/63 L 95 Laboratory Results Laboratory Results - last 24 hr 07/19/21 07/19/21 07/19/21 11:46 16:44 20:40 Sodium Potassium Chloride Carbon Dioxide Anion Gap BUN Creatinine Est Cr Clr Drug Dosing Est GFR ( Amer) Est GFR (Non-Af Amer) BUN/Creatinine Ratio Glucose POC Glucose 97 88 172 H Calcium 07/20/21 07/20/21 05:41 07:17 Sodium 139 Potassium 3.6 Chloride 107 Carbon Dioxide 26 Anion Gap 7.0 BUN 16 Creatinine 0.66 Est Cr Clr Drug Dosing 104.0 Est GFR ( Amer) 129.9 Est GFR (Non-Af Amer) 112.1 BUN/Creatinine Ratio 24.4 H Glucose 95 POC Glucose 95 Calcium 8.7 Medications Administered Current Inpatient Medications Acetaminophen (Acetaminophen 325 Mg Tab) 650 mg PO Q4H PRN PRN Reason: pain or fever Stop: 08/11/21 22:34 Last Admin: 07/14/21 17:35 Dose: 650 mg Documented by: Albuterol (Albuterol Hfa 8 Gm Inhaler) 2 puffs INH Q6R PRN PRN Reason: Shortness Of Breath Or Wheezing Stop: 08/12/21 18:59 Alprazolam (Alprazolam 0.25 Mg Tablet) 0.25 mg PO Q8H PRN PRN Reason: Anxiety Stop: 08/18/21 11:32 Benzonatate (Benzonatate 100 Mg Capsule) 100 mg PO TID PRN PRN Reason: Cough Stop: 08/11/21 22:34 Last Admin: 07/15/21 20:11 Dose: 100 mg Documented by: Buspirone HCl (Buspirone 5 Mg Tab) 5 mg PO BID YECENIA Stop: 08/18/21 20:59 Last Admin: 07/20/21 09:43 Dose: 5 mg Documented by: Dextrose (Dextrose 50% 50 Ml Syringe) 25 - 50 ml IV UD PRN; Protocol PRN Reason: Hypoglycemia Protocol Stop: 08/18/21 09:59 Enoxaparin Sodium (Enoxaparin Inj 40 Mg/0.4 Ml Syr) 40 mg SQ Q12H YECENIA Stop: 08/12/21 00:59 Last Admin: 07/19/21 23:42 Dose: 40 mg Documented by: Famotidine (Famotidine 20 Mg Tab) 20 mg PO HS YECENIA Stop: 08/12/21 20:59 Last Admin: 07/19/21 20:44 Dose: 20 mg Documented by: Glucagon (Glucagon For Inj 1 Mg Vial) 1 mg IM UD PRN; Protocol PRN Reason: Hypoglycemia Protocol Stop: 08/18/21 09:59 Glucose (Glucose 40% Gel 15 Gm Tube) 15 - 30 gm PO UD PRN; Protocol PRN Reason: Hypoglycemia Protocol Stop: 08/18/21 09:59 Glucose (Glucose 10 Tabs/Tube) 4 - 8 tabs PO UD PRN; Protocol PRN Reason: Hypoglycemia Protocol Stop: 08/18/21 09:59 Insulin Aspart (Insulin Aspart 100 Units/Ml 3 Ml Pen) 0 units SC ACHS [facility]; Protocol Stop: 08/12/21 11:29 Last Admin: 07/20/21 10:18 Dose: 3 units Documented by: Miscellaneous (Carbohydrates For Hypoglycemia ) 15 - 30 gm PO UD PRN PRN Reason: Hypoglycemia Treatment Stop: 08/18/21 09:59 Ondansetron HCl (Ondansetron Inj 2 Mg/Ml 2 Ml Vial) 4 mg IV Q6H PRN PRN Reason: Nausea And Vomiting Stop: 08/11/21 22:59 Oxymetazoline HCl (Oxymetazoline 0.05% 30 Ml Btl) 1 sprays NA BID PRN PRN Reason: nasal congestion Stop: 08/12/21 16:53 Last Admin: 07/13/21 17:52 Dose: 1 sprays Documented by: PG Care Time/CCT Total # of Minutes Spent Total Time Spent with Patient: Total time spent is greater than 50% in coordination of care (as documented) at patient's floor/unit and/or counseling patient: Coding Level of Care Code 93041 Subseq Hosp Care Lvl 2 Diagnoses COVID-19 U07.1 Hypoxia R09.02 Pneumonia due to COVID-19 virus U07.1; J12.82 Depression with anxiety F41.8 Acid reflux K21.9 Prediabetes R73.03 Hypokalemia E87.6 Thrombocytosis D47.3
[2021-07-20] MEDS: ENOXAPARIN INJ 40 MG/0.4 ML SYR SQ SCH ×2 (13:53→22:34)
[2021-07-20] MEDS: FAMOTIDINE 20 MG TAB PO SCH (20:52)
[2021-07-21] MEDS ORDERED: POTASSIUM CHLORIDE CRTAB 20 MEQ TABCR PO STA (07:58)
[2021-07-21] MEDS ORDERED: FUROSEMIDE 20 MG in SYRINGE 0 ML IV ONE (08:30)
[2021-07-21] MEDS: busPIRone 5 MG TAB PO SCH ×2 (08:56→21:27)
--- NOTE | 2021-07-21 09:13 | Hospitalist Progress Note ---
Date of Service July 21, 2021 Assessment & Plan (1) COVID-19: Plan: 40yo female with Covid-19 PNA - approximately day 13 of illness on the day of admission. Patient hypoxic on arrival at 83% on room air placed on HFNC 40 L 100% FiO2 saturating 89-91 %. weaned down to room air today, check two step tomorrow OOB in chair today, eating well, ambulating to the toilet took a shower today CRP = 12.3 on admission and now decreased to 1.1 Received tocilizumab on 07/13 Ddimer = 1020 with no PE on CTA proBNP mildly elevated, procalcitonin negative CTA with multilobar groundglass opacities, no PE CXR 07/18 with unchanged infiltrates, but they are not worse which is good sign -Completed dexamethasone 6mg IV daily, 10-day course -Has now completed a 5-day course of azithromycin -DVT prophylaxis with Lovenox 40mg BID discharge tomorrow (2) Hypoxia: Plan: Acute respiratory failure with hypoxia secondary to Covid-19 pneumonia as above much improved the past 72 hours, down to room air at rest today continue to wean as tolerated try for discharge 07/22 (3) Pneumonia due to COVID-19 virus: Plan: As above CXR 07/18 still with extensive bilat infiltrates unchanged from previous, but not worse finished 10 days of dexamethasone (4) Depression with anxiety: Plan: Chronic -Patient not currently on any medications for depression very tearful, misses her family ( and 5 children) her father is intubated in room 105, she is very worried that he won't survive encouraged her to pray for him, but also focus on getting herself better first, I will keep her updated Xanax 0.5mg 07/19 in the morning helped tremendously will start on Buspar 5mg BID, use Xanax 0.25 PRN, plan to discharge on this regimen as she is going to be under a great deal of stress with her father (5) Acid reflux: Plan: Chronic -Continue Pepcid 20mg po qHS (6) Prediabetes: Plan: Hemoglobin A1c 6.0% which is in prediabetic range Continue NovoLog sliding scale and Accu-Cheks, monitor for hypoglycemia (7) Hypokalemia: Plan: resolved (8) Thrombocytosis: Plan: This is almost certainly a reactive thrombocytosis to the viral infection Follow CBC periodically Plan: DVT Ppx - Lovenox 40mg BID Code - Full Dispo - discharge 07/22 Admission and Anticipated Discharge Date Admission Date: July 12, 2021 Subjective patient feeling great, down to room air today, she made a lot of urine with Lasix 20mg IV she took a shower, feels "normal" again eating and drinking well will plan for two step tomorrow and get her home to be with family she asked about her father in room 105, told her he is still very ill, severe ARDS told her I met with her sister and mother today and that they can plan to visit on Saturday if he is not doing better we will need to discuss goals of care Review of Systems Review of Systems: All systems reviewed & are unremarkable except as noted in Subjective Physical Exam Constitutional: well developed, well nourished and comfortable; no acute distress Neck: trachea midline, no thyromegaly Respiratory: normal respiratory effort and + cough; no respiratory distress, no labored breathing and does not use accessory muscles Auscultation: lungs clear to auscultation bilaterally Cardiovascular: Rate/Rhythm: regular rate and regular rhythm Heart Sounds: normal S1 and normal S2; no murmur Extremities: normal capillary refill; no edema Gastrointestinal (Abdomen): normal bowel sounds, soft, nontender, no hepatosplenomegaly Musculoskeletal: no cyanosis or clubbing, extremities motor strength 5/5 Skin: no rashes, warm and dry Neurologic: normal touch/pain/proprioception, CN's II-XI intact bilaterally, moves all extremities and awake; no focal motor deficits Psychiatric: Orientation: alert and oriented x 3 Affect: euthymic affect Mood: + anxious mood Results & Data Results & Data ([facility]) Vital Signs (Past 12 Hours) Vital Signs Temp Pulse Resp BP Pulse Ox 07/21/21 07:07 36.5 C 102 H 18 119/79 91 07/20/21 23:01 36.6 C 65 17 93/59 L 97 Laboratory Results Laboratory Results - last 24 hr 07/20/21 11:46 POC Glucose 90 Medications Administered Current Inpatient Medications Acetaminophen (Acetaminophen 325 Mg Tab) 650 mg PO Q4H PRN PRN Reason: pain or fever Stop: 08/11/21 22:34 Last Admin: 07/14/21 17:35 Dose: 650 mg Documented by: Albuterol (Albuterol Hfa 8 Gm Inhaler) 2 puffs INH Q6R PRN PRN Reason: Shortness Of Breath Or Wheezing Stop: 08/12/21 18:59 Alprazolam (Alprazolam 0.25 Mg Tablet) 0.25 mg PO Q8H PRN PRN Reason: Anxiety Stop: 08/18/21 11:32 Benzonatate (Benzonatate 100 Mg Capsule) 100 mg PO TID PRN PRN Reason: Cough Stop: 08/11/21 22:34 Last Admin: 07/15/21 20:11 Dose: 100 mg Documented by: Buspirone HCl (Buspirone 5 Mg Tab) 5 mg PO BID YECENIA Stop: 08/18/21 20:59 Last Admin: 07/21/21 08:56 Dose: 5 mg Documented by: Dextrose (Dextrose 50% 50 Ml Syringe) 25 - 50 ml IV UD PRN; Protocol PRN Reason: Hypoglycemia Protocol Stop: 08/18/21 09:59 Enoxaparin Sodium (Enoxaparin Inj 40 Mg/0.4 Ml Syr) 40 mg SQ Q12H YECENIA Stop: 08/12/21 00:59 Last Admin: 07/20/21 22:34 Dose: 40 mg Documented by: Famotidine (Famotidine 20 Mg Tab) 20 mg PO HS YECENIA Stop: 08/12/21 20:59 Last Admin: 07/20/21 20:52 Dose: 20 mg Documented by: Glucagon (Glucagon For Inj 1 Mg Vial) 1 mg IM UD PRN; Protocol PRN Reason: Hypoglycemia Protocol Stop: 08/18/21 09:59 Glucose (Glucose 40% Gel 15 Gm Tube) 15 - 30 gm PO UD PRN; Protocol PRN Reason: Hypoglycemia Protocol Stop: 08/18/21 09:59 Glucose (Glucose 10 Tabs/Tube) 4 - 8 tabs PO UD PRN; Protocol PRN Reason: Hypoglycemia Protocol Stop: 08/18/21 09:59 Miscellaneous (Carbohydrates For Hypoglycemia ) 15 - 30 gm PO UD PRN PRN Reason: Hypoglycemia Treatment Stop: 08/18/21 09:59 Ondansetron HCl (Ondansetron Inj 2 Mg/Ml 2 Ml Vial) 4 mg IV Q6H PRN PRN Reason: Nausea And Vomiting Stop: 08/11/21 22:59 Oxymetazoline HCl (Oxymetazoline 0.05% 30 Ml Btl) 1 sprays NA BID PRN PRN Reason: nasal congestion Stop: 08/12/21 16:53 Last Admin: 07/13/21 17:52 Dose: 1 sprays Documented by: PG Care Time/CCT Total # of Minutes Spent Total Time Spent with Patient: Total time spent is greater than 50% in coordination of care (as documented) at patient's floor/unit and/or counseling patient: Coding Level of Care Code 95568 Subseq Hosp Care Lvl 2 Diagnoses COVID-19 U07.1 Hypoxia R09.02 Pneumonia due to COVID-19 virus U07.1; J12.82 Depression with anxiety F41.8 Acid reflux K21.9 Prediabetes R73.03 Hypokalemia E87.6 Thrombocytosis D47.3
[2021-07-21] MEDS: ENOXAPARIN INJ 40 MG/0.4 ML SYR SQ SCH ×2 (09:57→22:05)
[2021-07-21] MEDS: FAMOTIDINE 20 MG TAB PO SCH (21:27)
[2021-07-22] MEDS: busPIRone 5 MG TAB PO SCH (08:42)
--- NOTE | 2021-07-25 08:29 | Discharge Summary ---
Date of Service July 22, 2021 Admission HPI Per Admitting Provider Rocío Reyes is a 40yo female with history of GERD and Depression presenting with Covid-19 infection. Patient's symptoms began 06/30/21 as fever, chills, body aches, headache and eye pain. Her symptoms have progressed over the last several days. She has had a cough and worsening shortness of breath. She reports becoming confused at times, feels that she is not thinking clearly. She was seen in the Er on 07/09/21 with these complaints - not getting better. She was prescribed Dexamethasone 6mg po x 6 day, Albuterol and Tylenol. Patient presents today with worsening shortness of breath. States that she becomes very short of breath with ambulating short distances. Also with some tightness in her chest - difficulty taking a deep breath. Patient initially 83% on room air upon arrival. She was placed on 6 L NC and improved slightly to 84%. She was then placed on OxyMask 8L and improved to 88% then NRB 15L and improved to 90%. Patient appeared tachypneic. Was tried on BiPAP and was unable to tolerated. She was then placed on HFNC 30 100% FiO2. She was unable to tolerate flow of 40. ER Course: Dexamethasone, NSS, KCl 40meq Principal Diagnosis COVID 19 pneumonia with acute hypoxic respiratory failure Discharge Exam Constitutional well developed, well nourished and comfortable; no acute distress Neck trachea midline, no thyromegaly Respiratory normal respiratory effort and + cough; no respiratory distress, no labored breathing and does not use accessory muscles Auscultation: lungs clear to auscultation bilaterally Cardiovascular Rate/Rhythm: regular rate and regular rhythm Heart Sounds: normal S1 and normal S2; no murmur Extremities: normal capillary refill; no edema Gastrointestinal (Abdomen) normal bowel sounds, soft, nontender, no hepatosplenomegaly Musculoskeletal no cyanosis or clubbing, extremities motor strength 5/5 Skin no rashes, warm and dry Neurologic normal touch/pain/proprioception, CN's II-XI intact bilaterally, moves all extremities and awake; no focal motor deficits Psychiatric Orientation: alert and oriented x 3 Affect: euthymic affect Mood: + anxious mood Discharge Data Allergies Allergy/AdvReac Type Severity Reaction Status Date / Time No Known Allergies Allergy Verified 07/12/21 20:48 Consultations 07/12/21 20:31 ED Decision to Admit Stat 07/12/21 22:35 Consult Line Patrolman Routine Ordered Studies 07/12/21 18:32 CT angio chest PE protocol Stat Hospital Course (1) COVID-19: 40yo female with Covid-19 PNA - approximately day 13 of illness on the day of admission. Patient hypoxic on arrival at 83% on room air placed on HFNC 40 L 100% FiO2 saturating 89-91 %. weaned down to room air for over 24 hours 2 step shows she needs 2L on exertion OOB in chair, eating well, ambulating to the toilet took a shower, feeling closer to normal CRP = 12.3 on admission and now decreased to 1.1 Received tocilizumab on 07/13 Ddimer = 1020 with no PE on CTA proBNP mildly elevated, procalcitonin negative CTA with multilobar ground glass opacities, no PE CXR 07/18 with unchanged infiltrates, but they are not worse which is good sign -Completed dexamethasone 6mg IV daily, 10-day course - completed a 5-day course of azithromycin -DVT prophylaxis with Lovenox 40mg BID while admitted, low risk for DVT, no need for prophylaxis on discharge discharge to home on 2L NC on exertion, stay well rested, well nourished no need to quarantine further, over 20 days from onset of symptoms (2) Hypoxia: Acute respiratory failure with hypoxia secondary to Covid-19 pneumonia as above much improved the past 4 days, down to room air at rest, needs 2L on exertion (3) Pneumonia due to COVID-19 virus: As above CXR 07/18 still with extensive bilat infiltrates unchanged from previous, but not worse finished 10 days of dexamethasone (4) Depression with anxiety: Chronic -Patient not currently on any medications for depression very tearful, misses her family ( and 5 children) her father is intubated in room 105, she is very worried that he won't survive encouraged her to pray for him, but also focus on getting herself better first Xanax 0.5mg 07/19 in the morning helped tremendously will start on Buspar 5mg BID, use Xanax 0.25 PRN, plan to discharge on this regimen as she is going to be under a great deal of stress with her father follow up with PCP (5) Acid reflux: Chronic -Continue Pepcid 20mg po qHS (6) Prediabetes: Hemoglobin A1c 6.0% which is in prediabetic range Continue NovoLog sliding scale and Accu-Cheks, monitor for hypoglycemia (7) Hypokalemia: resolved (8) Thrombocytosis: This is almost certainly a reactive thrombocytosis to the viral infection Follow CBC periodically DVT Ppx - Lovenox 40mg BID Code - Full Dispo - discharge 07/22 Total Time Total Time Spent Total Time Spent (In Minutes): 36 minutes Total Time Includes: Examination of the Patient, Discharge Planning and Medication Reconciliation Discharge Plan Discharge Items Patient Disposition: Home - Self-Care Reason For Visit: COVID-19, HYPOXIA Discharge Diagnosis: COVID 19 pneumonia Acute hypoxic respiratory failure Anxiety Activity: Resume your previous activity Driving/Machine Use: No limitations Weightbearing: Full weightbearing Non-emergency contact: Primary Care Provider Call non-emergency contact if: you have any medication questions Follow-up/Referrals: Stacey Woods DO [Primary Care Provider] - (one week, follow up for anxiety) Diet: Regular Addtl Attending Provider Instructions: Medications: - BUSPAR: 7.5mg twice a day, continue this dose until you follow up with Dr. Woods, could consider increasing it to help with anxiety - XANAX: only take as needed for extreme anxiety, panic episodes to help you calm down, gave you 20 tablets COVID 19 pneumonia, acute hypoxia down to room air at rest, 2L on exertion, anticipate you won't need any oxygen after another week completed full treatment for COVID 19 with dexamethasone you no longer need to be in quarantine Pending Studies at Discharge: No Stand-Alone Forms: My [facility] [employer], Smoking Cessation Medications and DC Order Prescriptions: New alprazolam 0.25 mg Tablet 0.25 mg PO Q8H PRN (Reason: anxiety) Qty: 20 RF: 0 buspirone 5 mg Tablet 7.5 mg PO BID 30 Days Qty: 90 RF: 0 Continued ergocalciferol (vitamin D2) 1,250 mcg (50,000 unit) capsule 1,250 mcg PO .weekly Qty: 12 RF: 2 ascorbic acid (vitamin C) 500 mg tablet 500 mg PO DAILY RF: 0 omeprazole 40 mg capsule,delayed release(DR/EC) 40 mg PO DAILY Qty: 30 RF: 2 famotidine [Pepcid] 20 mg tablet 20 mg PO HS Qty: 30 RF: 5 ondansetron 4 mg tablet,disintegrating 4 mg PO Q6H PRN (Reason: nausea and vomiting) Qty: 10 RF: 0 Discontinued dexamethasone 6 mg tablet 6 mg PO DAILY Qty: 6 RF: 0 Discharge Orders: Discharge Order (Routine); Ordered 07/22/21 Ordered By: Bipin Price/Other Patient Handouts: Using Oxygen Safely, Using an Oxygen Tank at Home Admission Data Admit Date/Time: 07/12/21 21:23 Attending Provider: Bipin Mustafa Admit Provider: Margot Eric Primary Care Provider: Stacey oWods. Other Providers: Margot Eric ; Stanford Merlos Other Interventions: Discharge Summary Assessment (RN) Last Done: 07/22/21 09:51 Coding Level of Care Code D/C DAY MANAGEMENT >30 MINS Diagnoses COVID-19 U07.1 Hypoxia R09.02 Pneumonia due to COVID-19 virus U07.1; J12.82 Depression with anxiety F41.8 Acid reflux K21.9 Prediabetes R73.03 Hypokalemia E87.6 Thrombocytosis D47.3
== END 2021-07-22 10:58 | disposition home or self-care (01) | DRG 177 ==
LOC: ED 17:51 → 1E 21:23 → SUATTDRO 21:23 → 1E 21:51 → 2E 07-13 15:41 → 3E 07-20 11:02